=== PATIENT | female | born 1940 | race Caucasian/White ===

== ENCOUNTER → 2024-12-14 13:06 | Outpatient (REF) | payer OTHER, SELFPAY | LOC: RAD 13:06 | PROVIDERS: ATTENDING PHYSICIAN Internal Medicine Hematology & Oncology; FAMILY PHYSICIAN Student in an Organized Health Care Education/Training Program | DX: C50.112 Malignant neoplasm of central portion of left female breast (principal); B37.2 Candidiasis of skin and nail; C79.51 Secondary malignant neoplasm of bone; M79.604 Pain in right leg; M79.605 Pain in left leg | CPT/HCPCS: 71250; 73564; 73590; 74176 ==

== ENCOUNTER 2025-01-09 12:48 | Inpatient (IN) | payer OTHER, SELFPAY ==
[2025-01-09 13:19] VITALS: BP 161/76
[2025-01-09 14:30] LABS: Hematocrit 38.7 % (37.0-47.0); Hemoglobin 12.6 g/dL (12.0-16.0); Mean Corp Hgb Conc. 32.6 g/dL (33.0-37.0); Mean Corpuscular Volume 91.7 fL (81.0-99.0); Nucleated Red Blood Cells % 0 %; Platelet Count 323 10^3/uL (130-400); Red Cell Dist. Width 12.6 % (11.5-14.5)
[2025-01-09 14:46] LABS: INR 0.97; PT 13.2 Sec (11.4-14.6)
--- NOTE | 2025-01-09 14:46 | PTCARENOTE ---
Patient admitted from home for surgery on .She will have a colonoscopy tomorrow and a planned colectomy on .The patient denies any pain.She is alert and oriented but forgetful at times.The patient is in her bed with the call sharma in
reach.
[2025-01-09 14:47] LABS: APTT 30.8 Sec (23.4-35.0)
[2025-01-09 14:49] VITALS: BMI 27.8
[2025-01-09 14:58] LABS: Blood Urea Nitrogen 23 mg/dl (7-17); Calcium 9.7 mg/dl (8.4-10.2); Carbon Dioxide 25 mmol/L (22-30); Chloride 104 mmol/L (98-107); Estimated Creatinine Clearance 49 ml/min; Glucose 138 mg/dl (70-99); Potassium 4.4 mmol/L (3.5-5.1); Sodium 134 mmol/L (135-145); eGFR > 60.00
--- NOTE | 2025-01-09 15:14 | WOUNDNOTE ---
MURIEL RN NOTE: Stoma sited all quadrants as requested. Assessed patient lying, sitting and standing. Multiple abdominal surgical scars and creases avoided. LUQ marked 6.5cm from midline and 8.5cm proximal from umbilical line. LLQ marked 7.5cm from
midline and 0cm distal from umbilical line. RUQ marked 13cm from midline and 9cm proximal from umbilical line. RLQ marked 8cm from midline and 0.5cm distal from umbilical line. Both patient and myself agreed that LUQ is best location, Dr. Kulkarni
made aware. Patient aware that surgeon has final decision during surgery. Answered all questions and will follow post op as needed.
[2025-01-09 15:22] LABS: COVID-19 Antigen Negative (Negative)
[2025-01-09 15:40] VITALS: BP 143/108
[2025-01-09 16:42] LABS: CEA 807 ng/ml
--- NOTE | 2025-01-09 16:48 | PTCARENOTE ---
Patient admitted from pacu post right laparoscopic pyeloplasty.Then patient is drowsy but arousable.She rates her pain at a 6-7 out of 10.All incisions are open to air without drainage.The patient is in her bed with the call sharma in reach.
--- NOTE | 2025-01-09 16:49 | CON.HOSP ---
Consultation
-
Date/Time Consultation Requested: 01/09/25
Date/Time Consultation Performed: 01/09/25
Requesting Provider: Shad
Performing Provider: Maynor
Reason for Consultation: medical co-management
Family Physician
-
Family Physician: INTERVIEWE UNKNOWN - PT NOT
Chief Complaint
-
elective colon surgery
History of Present Illness
84 y/o F, hx of breast cancer, type 2 DM, HTN, HLD admitted to colorectal service for colonoscopy and surgery. Patient reports recent CT in late November for breast cancer surveillance that found an 6-7 cm segment of distal transverse colon
thickening; consistent with neoplasm. She reported no abd pain, weight loss, constipation or bloody bowel movements.
Hospitalist service consulted for medical co-management.
At present patient denies any complaints.
Labs revealed leukocytosis of 14.9; no fevers. ID was consulted.
Medical History
Past Medical History
Past Medical History: Reports Other (breast cancer, type 2 DM, HTN, HLD)
Past Surgical History: Reports None
Social History
Tobacco: Non-smoker
Alcohol: None
Drug: None
Living: With Family
Family History
Family History: Reviewed & Not Pertinent
Allergies / Home Medications
Allergies reflects when Allergies were last updated in [employer].
Home Medications with original date entered in [employer]
Allergy/Medication List:
Allergies
Allergy/AdvReac Type Severity Reaction Status Date / Time
codeine Allergy Unknown Verified 01/10/23 19:07
latex Allergy Unknown Verified 01/10/23 19:07
pentazocine Allergy Pt does Verified 01/10/23 19:07
not know
if this is
an allergy
VITAMIN D MILK Allergy Unknown Uncoded 01/10/23 19:07
Home Medications
amlodipine 5 mg tablet 5 mg PO BID 30 days #60 tabs 06/23/21
aspirin 81 mg chewable tablet 81 mg PO DAILY 30 days #30 tabs 06/23/21
atorvastatin 20 mg tablet 20 mg PO QPM 30 days #30 tabs 06/23/21
blood sugar diagnostic ([employer] Verio test strips) #100 strips 06/23/21
docusate sodium 100 mg capsule 100 mg PO BIDPRN PRN constipation 30 days #60 caps 06/23/21
lancets 30 gauge (Dazo DelEmSense Lancets) #100 ea 06/23/21
letrozole 2.5 mg tablet 2.5 mg PO DAILY 30 days #30 tabs 06/23/21
cyclobenzaprine 5 mg tablet 5 mg PO TID PRN muscle spasm #7 tabs 01/11/23
metformin 500 mg tablet 500 mg PO BID 01/09/25
Review of Systems
-
A 12 point Review of Systems was completed except as noted: Yes
Physical Exam
Vital Signs
Vital Signs
Temp Pulse Resp BP Pulse Ox
98.4 F 68 16 143/108 98
01/09/25 15:40 01/09/25 15:40 01/09/25 15:40 01/09/25 15:40 01/09/25 15:40
Physical Exam
General: No Apparent Distress
HEENT: Normocephalic and Anicteric
Respiratory: Wheezes
Cardiac: S1/S2 and Regular Rhythm
GI: Soft and Non Tender
Neuro: AO x 3
Psych: Calm
Laboratory Results
-
Laboratory Results
01/09/25 14:19
01/09/25 14:19
PT 13.2 Sec (11.4-14.6) 01/09/25 14:19
INR 0.97 01/09/25 14:19
APTT 30.8 Sec (23.4-35.0) 01/09/25 14:19
Data Reviewed
-
Total Time Spent with Patient (in minutes): 65
Lab Data: Labs Reviewed
Impression / Plan
-
Assessment:
Leukocytosis
- unclear etiology
- afebrile
- CXR and COVID negative
- check Bcx x 2
- ID consulted after discussion with colorectal service.
Transverse colon Mass
- CT from 11/2024: 6-7 cm segment of distal transverse colon thickening; consistent with neoplasm
- CRS following; follow their recs
Hx of metastatic breast cancer
- continue Letrozole
type 2 DM
- hold Metformin
- SSI + Accu-cheks
Essential HTN
- continue Amlodipine
HLD - statin
DVT ppx: SC Heparin
Code: Full
Hospitalist service will follow along.
[2025-01-09] MEDS: LIPITOR 20 MG PO (17:45)
[2025-01-09 20:12] VITALS: BP 175/79
[2025-01-09] MEDS: NORVASC 5 MG PO (20:13)
[2025-01-09] MEDS: HEPARIN 5000 UNITS SC (20:14)
[2025-01-09 23:05] VITALS: BP 145/61
[2025-01-10 00:28] LABS: Urine Character Clear (Clear)
[2025-01-10 00:33] LABS: Urine White Cell 16-20 /HPF (0-5)
[2025-01-10 00:34] LABS: Urine Red Blood Cell 0-2 /HPF (0-2)
--- NOTE | 2025-01-10 02:31 | DOWNTIME ---
There was a [employer] Downtime on 01/10/2025 from 0100 to 01/10/2025 at 0215. Downtime documentation of patient's care, including medication administrations, has been reconciled in the electronic record per guidelines. Refer to the
patient's paper chart under the miscellaneous tab to see printed paper medication records and downtime forms.
[2025-01-10 06:20] LABS: Hematocrit 35.2 % (37.0-47.0); Hemoglobin 11.5 g/dL (12.0-16.0); Mean Corp Hgb Conc. 32.7 g/dL (33.0-37.0); Mean Corpuscular Volume 91.4 fL (81.0-99.0); Platelet Count 303 10^3/uL (130-400); Red Cell Dist. Width 12.7 % (11.5-14.5)
[2025-01-10 06:48] LABS: Blood Urea Nitrogen 20 mg/dl (7-17); Calcium 9.6 mg/dl (8.4-10.2); Carbon Dioxide 26 mmol/L (22-30); Chloride 106 mmol/L (98-107); Estimated Creatinine Clearance 49 ml/min; Glucose 161 mg/dl (70-99); Potassium 4.6 mmol/L (3.5-5.1); Sodium 139 mmol/L (135-145); eGFR > 60.00
[2025-01-10 07:06] VITALS: BP 169/69
--- NOTE | 2025-01-10 07:17 | W.PN.ADMIT ---
Progress Note - Admit
Progress Note - Admit
Full admit H&P to be dictated.
History, vitals, labs, prior imaging reviewed. Patient seen and examined.
84-year-old female with prior CT showing evidence for distal transverse colon mass, concerning for malignancy. Given the above, plans were to admit to the hospital for bowel prep, colonoscopy today, followed by surgery tomorrow. Unfortunately,
patient's WBC yesterday was 14.9 with a bit of a left shift for unclear reasons. Patient with no complaints and exam is unremarkable. On communication with the hospitalist service and with ID, decision was made to postpone the above procedures and
workup the abnormal white count. So far, chest x-ray looks reasonable. UA looks possibly positive for UTI. Await IDs input. Anticipating moving her colonoscopy to next Wednesday and the surgery next . Patient prefers to stay here
through then if possible.
[2025-01-10] MEDS: FEMARA 2.5 MG PO (07:44)
[2025-01-10] MEDS: HEPARIN 5000 UNITS SC ×2 (07:44→19:57)
[2025-01-10] MEDS: LOW STRENGTH ASPIRIN 81 MG PO (07:44)
[2025-01-10] MEDS: NORVASC 5 MG PO ×2 (07:46→19:57)
--- NOTE | 2025-01-10 08:26 | CON.ID ---
Consultation
-
Date/Time Consultation Requested: 01/10/202507
Date/Time Consultation Performed: 01/10/2025825
Requesting Provider: Dr. Mcguire
Performing Provider: Dr. Campbell
Reason for Consultation: Leukocytosis
Chief Complaint / Past History
History of Present Illness
Ene Brothers is an 84-year-old female with a significant past medical history of distal transverse colon mass concerning for malignancy being evaluated at the request of Dr. Mcguire in regards to leukocytosis. History is obtained from chart
review, along with patient interview. The patient was admitted to [facility] on 01/09 due to anticipation of bowel prep, colonoscopy and subsequent resection of known mass, but on preop labs was found to have a leukocytosis for unclear
reasons.
At present, patient denies any fevers or chills. She denies any chest pain or shortness of breath. She notes some mild nausea, but no vomiting. She denies any hematuria or dysuria. She notes no urinary urgency. She denies any abdominal pain,
but does feel slight bloating.
Past History
Additional Past Medical History:
DM type II
HTN
HLD
Colon mass
Hx breast cancer
Hx adrenal tumor (1997)
Additional Past Surgical History:
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
(R) TKA
Appendectomy
Cholecystectomy
NICK
Partial colectomy (2* diverticulosis)
Allergy History:
codeine Allergy (Verified 01/10/23 19:07)
Unknown
latex Allergy (Verified 01/10/23 19:07)
Unknown
pentazocine Allergy (Verified 01/10/23 19:07)
Pt does not know if this is an allergy
VITAMIN D MILK Allergy (Uncoded 01/10/23 19:07)
Unknown
Medications Reviewed: Yes
Current Antibiotics:
None
Social History
Tobacco: Non-Smoker
Alcohol: None
Drug: None
Personal: Single
Living: Alone
Employment: Retired
Family History
Family History: Not Pertinent
Review of Systems
Vital Signs
Temp Pulse Resp BP Pulse Ox
98.0 F 64 18 169/69 97
01/10/25 07:06 01/10/25 07:06 01/10/25 07:06 01/10/25 07:06 01/10/25 07:06
Physical Exam
Physical Exam
Constitutional: No Acute Distress, Comfortable and Non-toxic
Head: Normocephalic
Eyes: Pupils Equal, Pupils Round, No Conjunctival Hemorrhage and Sclera Anicteric
Oral: No Thrush and No Ulcers
Cardiovascular: S1/S2; Negative S3/S4
Pulmonary: Clear; Negative Wheezes, Rales or Rhonchi
Gastrointestinal: Soft, Non Tender, Non Distended, Normal Bowel Sounds, No Rebound and No Guarding
Genito-Urinary: Negative Lee, Suprapubic Tenderness or CVA Tenderness
Extremities: Edema; Negative Cyanosis or Erythema
Skin: Warm and Dry; Negative Rash or Jaundice
Neurological: Awake and Alert
Psychological: Calm
Lab / Diagnostic Study Results
01/10/25 05:32
01/10/25 05:32
Abs Immat Gran (auto) 0.1 10^3/uL (0-0.05) H 01/09/25 14:19
Absolute Neuts (auto) 11.3 10^3/uL (1.4-6.5) H 01/09/25 14:19
Absolute Lymphs (auto) 2.2 10^3/uL (1.2-3.4) 01/09/25 14:19
Absolute Monos (auto) 1.3 10^3/uL (0.1-0.6) H 01/09/25 14:19
Absolute Basos (auto) 0.0 10^3/uL (0-0.2) 01/09/25 14:19
Immature Gran % 0.5 % (0-0.5) 01/09/25 14:19
Neutrophils % 75.4 % (42.2-75.2) H 01/09/25 14:19
Lymphocytes % 14.6 % (20.5-51.1) L 01/09/25 14:19
Monocytes % 8.7 % (1.7-9.3) 01/09/25 14:19
Eosinophils % 0.5 % (0-6) 01/09/25 14:19
Basophils % 0.3 % (0-2) 01/09/25 14:19
PT 13.2 Sec (11.4-14.6) 01/09/25 14:19
INR 0.97 01/09/25 14:19
Ur Squamous Epith Cells 6-10 /LPF (Few) 01/10/25 00:15
Microbiology Results
Micro:
01/10/25 06:54 Blood Culture - Pending
Blood/Venous
01/10/25 05:32 Blood Culture - Pending
Blood/Venous
01/10/25 00:15 Urine Culture - Pending
Urine
Imaging:
01/09/2025 CXR (2 view): no focal infiltrates. No significant pleural effusion. Please see full dictation for additional detail. Film personally viewed.
12/14/2024 CT chest/abdomen/pelvis without contrast: no hilar or mediastinal mass or enlarged adenopathy. A few small mediastinal lymph nodes noted. No pleural or pericardial effusion. A few stable tiny pulmonary noted. A calcified granuloma in
the posterior right lower lobe is noted. No evidence of pneumonia. Stable postsurgical changes of the left breast. Slightly irregular nodular soft tissue attenuation in the left axilla appears slightly smaller in size from prior studies. No new
mass or adenopathy. In the abdomen, there is a previous left nephrectomy and adrenalectomy. No hydronephrosis or obstructive uropathy. In the bowel there is an irregular nodular circumferential wall thickening involving an approximately 6 to 7 cm
segment of the distal transverse colon. This is most consistent with neoplasm. There is nodular infiltration of the pericolic fat. Small, likely metastatic mesenteric lymph nodes in the left upper quadrant measuring 7.8 mm and 5.8 mm. Mild
diverticulosis. No evidence of diverticulitis. Throughout the right ilium, there is heterogeneous thickening and sclerosis of the trabecular markings, similar prior examination. Likely reflecting treated metastatic disease. Stable small sclerotic
focus at the left lateral inferior endplate margin of L5. Treated sclerotic metastatic focus along left lateral margin at T8. No vertebral compression deformity. Mild scoliosis. Mild degenerative disc disease and facet arthrosis. Please see full
dictation for additional detail. Film personally viewed.
Assessment / Plan
Leukocytosis; improved
Mild pyuria without dysuria
- Urine culture pending
Colon mass with suspicion for malignancy
DM type II; uncontrolled (HbA1c = 8.6)
HTN
HLD
Hx breast cancer
Hx adrenal tumor (1997)
Recommendations:
At present, would hold on initiation of antibiotics.
Urine culture is currently pending; follow for additional data although without symptomatology, no immediate need for treatment.
Improvement in white count is encouraging.
Follow temperature curve.
Further recommendations as additional data is returned
Care Review
Plan reviewed with: Physician (Hospitalist)
[2025-01-10 08:39] LABS: Glycohemoglobin (HgbA1c) 8.6 % (4.0-5.6)
--- NOTE | 2025-01-10 10:42 | CM ---
Addendum entered by Zaki Quiroz 01/10/25 16:03:
CM met with pt's NILSON Cesar, copy of POA placed on pt's chart. Pt's NILSON Duke stated that pt receiving services from [facility] [facility] associate office [phone] and they are working on an option of an [facility] in [place].
Original Note:
CM following re: discharge planning.
Reviewed pt's chart, met with pt.
Pt is an 84 year old female, admitted with primary dx of distal transverse colon mass, concerning for malignancy. Plan for bowel prep, colonoscopy, followed by surgery when stable.
Pt reports she has been homeless for years, was sleeping in her car for years and a few months ago friend Amaya took the pt to her house and pt has been staying there: 1 SH with 1 step to enter. Pt reports she does not know Amaya's phone number. Pt
stated she is and her . Pt reports she has 12 children and they do not involved in her life. Pt reports she ambulated with a walker outside of the house, cannot use a walker inside the house because her friend
Amaya is a [employer] and she brought all belongings from her parents. Pt stated she was before in [facility].
There is a name of friend Nargis on pt's contact list and there is no phone number.
CM called [facility], spoke to fitness plan coordinator Jocelynn and she have me following friends contact information:
1, Cain Regalado [phone]
2. Florecita [phone]
CM left a message to friend Eliezererikthomas. Florecita's phone number incorrect and has been disconnected.
Pt's friend Cain called back and she stated she just a friend and she thinks that friend Amaya had POA and now another friend Nargis has POA and Nargis holding pt's phone. Per Cain she thinks that pt was able to reconnect with one of her
daughters. per Cain all pt's children live in the surrounding area.
CM called on pt's phone [phone] and she stated that pt's has two friends name Amaya: one had POA but not anymore and another Amaya is pt's [facility] [phone] who rents a room for pt. Pt's friend Nargis [phone] stated that pt's friend
Srikanth Cesar has POA [phone]. Pt's friend stated that all pt's friends are looking for to get the pt to [facility] for a short term rehab and pt will be returning back to her living arrangements at [facility].
Pt's contact list updated.
CM called Srikanth Cesar and he confirmed he has POA, will bring a copy shortly to the hospital. Srikanth confirmed that he is looking for an [facility]ILL[facility] NURSING for patient in [place]. Srikanth agrees that pt will need to go to a SNF and after transferring to an SKILLED NURSING. Per Srikanth,
pt has financial resources to afford [facility]. Srikanth stated that a SNF might also be in [place].
PT and OT will evaluate the pt to determine a level of care at discharge.
PCP: [facility]
Pharmacy: [facility]
D/C plan: preferred SNF, most likely in [place].
CM will follow with discharge plan updates as hospitalization progresses
--- NOTE | 2025-01-10 12:18 | W.PN.HOSP.TC ---
Today's Communication/Plan
-
monitor off Abx pending cultures
add SSI + accu-checks
diabetic diet
continue home meds
d/w Colorectal (primary service) and ID
Assessment / Plan
Assessment / Plan
Assessment:
Leukocytosis
- unclear etiology
- WBC 14.9 to 10.9 today
- afebrile
- CXR and COVID negative
- UA not suggestive of UTI; pt asymptomatic
- follow Bcx x 2
- ID following; observing off antibiotics
Transverse colon Mass
- CT from 11/2024: 6-7 cm segment of distal transverse colon thickening; consistent with neoplasm
- CRS following; correspondence reviewed; planning colonoscopy next Wednesday
Hx of metastatic breast cancer
- continue Letrozole
type 2 DM
- hold Metformin
- A1c 8.6%
- SSI + Accu-cheks
Essential HTN
- continue Amlodipine; monitor BPs
HLD - statin
DVT ppx: SC Heparin
Code: Full
Hospitalist service will follow along.
Anticipated Discharge: > 48 hours
Subjective/Interval History
-
Date of Service: January 10, 2025
resting comfortably, no new complaints
Objective Data
-
Labs:
Laboratory Results
01/10/25
05:32
WBC 10.9 H
Hgb 11.5 L
Hct 35.2 L
Plt Count 303
Sodium 139
Potassium 4.6
Chloride 106
Carbon Dioxide 26
BUN 20 H
Creatinine 0.8
Glucose 161 H
Calcium 9.6
Vital Signs:
Vital Signs
Temp Pulse Resp BP Pulse Ox
98.0 F 64 18 169/69 97
01/10/25 07:06 01/10/25 07:06 01/10/25 07:06 01/10/25 07:06 01/10/25 07:06
I&O
01/09/25 01/10/25 01/11/25
06:59 06:59 06:59
Intake Total 480 / 480
Balance 480 / 480
Physical Exam
-
General: No Apparent Distress
HEENT: Normocephalic and Atraumatic
Respiratory: Negative Wheezes
Cardiac: Regular Rhythm and S1/S2
GI: Soft and Nontender
Musculoskeletal: No Edema
Neuro: AO x 3
Psych: Calm
Data Reviewed
-
Total Time Spent with Patient (in minutes): 41
Labs: Labs Reviewed by me
--- NOTE | 2025-01-10 14:04 | PTCARENOTE ---
Pt valuable receipt [id number] in chart, valuables sent to security
[2025-01-10 15:45] VITALS: BP 162/63
[2025-01-10 16:45] LABS: Glucose - Point of Care 246 mg/dl (70-99)
[2025-01-10] MEDS: LIPITOR 20 MG PO (18:07)
[2025-01-10] MEDS: NOVOLOG FLEXPEN-LOW RESISTANCE 2 UNITS SC (18:08)
[2025-01-10 21:46] LABS: Glucose - Point of Care 230 mg/dl (70-99)
[2025-01-10 22:59] VITALS: BP 163/77
[2025-01-11 06:18] LABS: Hematocrit 37.4 % (37.0-47.0); Hemoglobin 12.8 g/dL (12.0-16.0); Mean Corp Hgb Conc. 34.2 g/dL (33.0-37.0); Mean Corpuscular Volume 89.5 fL (81.0-99.0); Platelet Count 357 10^3/uL (130-400); Red Cell Dist. Width 12.6 % (11.5-14.5)
[2025-01-11 06:43] LABS: Blood Urea Nitrogen 17 mg/dl (7-17); Calcium 9.7 mg/dl (8.4-10.2); Carbon Dioxide 26 mmol/L (22-30); Chloride 106 mmol/L (98-107); Estimated Creatinine Clearance 56 ml/min; Glucose 180 mg/dl (70-99); Potassium 4.4 mmol/L (3.5-5.1); Sodium 136 mmol/L (135-145); eGFR > 60.00
[2025-01-11 07:00] VITALS: BP 154/74
[2025-01-11 08:05] LABS: Glucose - Point of Care 169 mg/dl (70-99)
[2025-01-11] MEDS: NOVOLOG FLEXPEN-LOW RESISTANCE 1 UNITS SC (08:30)
[2025-01-11] MEDS: LOW STRENGTH ASPIRIN 81 MG PO (08:30)
[2025-01-11] MEDS: NORVASC 5 MG PO ×2 (08:30→19:49)
[2025-01-11] MEDS: FEMARA 2.5 MG PO (08:30)
[2025-01-11] MEDS: HEPARIN 5000 UNITS SC ×2 (08:30→19:49)
--- NOTE | 2025-01-11 09:29 | W.PN.CRS1 ---
Today's Communication / Plan
-
OOB with PT/OT
trend WBC
holding off on abx
continue low residue
Assessment/Plan
-
Assessment: 84-year-old female with CT showing evidence for distal transverse colon mass, concerning for malignancy
Plan:
WBC: 12.9 (10.9), Hgb 12.8 (11.5)
CEA: 807
-Continue low residue diet
-Trend labs
-Appreciate ID - holding abx for now
-Likely colonoscopy next week with surgery to follow
-Case management
-OOB as tolerated. PT/OT ordered.
-TEDs/SCDS in place for DVT prophylaxis.
-Continue hospitalization today per Dr. Kulkarni to monitor WBC.
-Appreciate hospitalist
Subjective Data
Subjective Data
Date of Service: January 11, 2025
Patient states she feels 'fine'. She denies abdominal pain. She is urinating and passing stools without difficulty. Denies nausea or vomiting.
Objective Data
-
Vital Signs
Temp Pulse Resp BP Pulse Ox
98.5 F 67 16 154/74 96
01/11/25 07:00 01/11/25 07:00 01/11/25 07:00 01/11/25 07:00 01/11/25 07:00
Intake & Output
01/10/25 01/11/25 01/12/25
06:59 06:59 06:59
Intake Total 480 / 480 240 / 240
Balance 480 / 480 240 / 240
Intake:
Oral fluids 480 / 480 240 / 240
Other:
Number of approximated MODERATE 2 2
amounts of urine
Number of unmeasured liquid
stools
Rectum 1
Lab Results
01/11/25 05:15
01/11/25 05:15
Physical Exam
-
General: No Acute Distress and AOx3
Abdomen: Soft, Non Distended and Non Tender
Skin: Warm and Dry
--- NOTE | 2025-01-11 11:02 | CM ---
PT/OT evaluations pending; disposition plan to be determined
--- NOTE | 2025-01-11 11:12 | W.PN.HOSP.TC ---
Today's Communication/Plan
-
follow ID recs
follow Colorectal (primary recs)
Assessment / Plan
Assessment / Plan
Assessment:
Leukocytosis
- unclear etiology
- WBC 14.9 on admission, currently 12.9
- afebrile
- CXR and COVID negative
- Gram negative growth in urine; pt asymptomatic, defer to ID for evaluation of treatment
- Bcx x 2 x negative
- ID following
Transverse colon Mass
- CT from 11/2024: 6-7 cm segment of distal transverse colon thickening; consistent with neoplasm
- CRS following; correspondence reviewed; planning colonoscopy next Wednesday
- preop evaluation. RCRI score 1.1 (abdominal surgery). patient with >METS. EKG with bundle branch block, no ischemia. Echo normal. Can proceed with intermediate risk. No additional testing.
Hx of metastatic breast cancer
- continue Letrozole
type 2 DM
- hold Metformin
- A1c 8.6%
- SSI (increase to moderate scale) + Accu-cheks
Essential HTN
- continue Amlodipine; monitor BPs
HLD - statin
DVT ppx: SC Heparin
Code: Full
Hospitalist service will follow along.
Anticipated Discharge: > 48 hours
Subjective/Interval History
-
Date of Service: January 11, 2025
no new complaints
WBC 12
no fevers
Objective Data
-
Labs:
Laboratory Results
01/11/25
05:15
WBC 12.9 H
Hgb 12.8
Hct 37.4
Plt Count 357
Sodium 136
Potassium 4.4
Chloride 106
Carbon Dioxide 26
BUN 17
Creatinine 0.7
Glucose 180 H
Calcium 9.7
Vital Signs:
Vital Signs
Temp Pulse Resp BP Pulse Ox
98.5 F 67 16 154/74 96
01/11/25 07:00 01/11/25 07:00 01/11/25 07:00 01/11/25 07:00 01/11/25 07:00
I&O
01/10/25 01/11/25 01/12/25
06:59 06:59 06:59
Intake Total 480 / 480 240 / 240
Balance 480 / 480 240 / 240
Physical Exam
-
General: No Apparent Distress
HEENT: Normocephalic and Atraumatic
Respiratory: Negative Wheezes
Cardiac: Regular Rhythm and S1/S2
GI: Soft
Genito-urinary: No Costovertebral Tender
Neuro: AO x 3
Psych: Calm
Data Reviewed
-
Total Time Spent with Patient (in minutes): 41
Labs: Labs Reviewed by me
[2025-01-11 11:36] LABS: Glucose - Point of Care 269 mg/dl (70-99)
--- NOTE | 2025-01-11 12:08 | W.PN.ID1 ---
Date of Service
Date of Service: January 11, 2025
Today's Communication
Observe off antibiotics.
Assessment / Plan
Leukocytosis; low-grade
Asymptomatic bacteriuria
Colon mass with suspicion for malignancy
- Tentative resection early next week
DM type II; uncontrolled (HbA1c = 8.6)
HTN
HLD
Hx breast cancer
Hx adrenal tumor (1997)
Recommendations:
Urine culture with GNR's, but only 40K.
At present, would hold on initiation of antibiotics.
Follow WBC / temperature curve.
����������������������������������������������������������
Chief Complaint
-: Leukocytosis
Subjective / Review of Systems
Review of Systems: No Fever, No Chills and No Dysuria
Vital Signs / Physical Exam
Vital Signs
Vital Signs
Temp Pulse Resp BP Pulse Ox
98.5 F 67 16 154/74 96
01/11/25 07:00 01/11/25 07:00 01/11/25 07:00 01/11/25 07:00 01/11/25 07:00
Physical Exam
Constitutional: No Acute Distress, Comfortable and Non-toxic
Eyes: Sclera Anicteric
Cardiovascular: S1/S2; Negative S3/S4
Pulmonary: Non Labored
Gastrointestinal: Soft and Non Tender
Neurological: Awake and Alert
Psychological: Calm
Objective Data
Lab Data
Lab Results
01/11/25 05:15
01/11/25 05:15
PT 13.2 Sec (11.4-14.6) 01/09/25 14:19
INR 0.97 01/09/25 14:19
APTT 30.8 Sec (23.4-35.0) 01/09/25 14:19
Estimated Creat Clear 56 ml/min 01/11/25 05:15
Most recent labs reviewed.
Micro Results:
01/10/25 00:15 Urine Culture - Preliminary
Urine Gram negative bacilli (40k cfu/mL)
01/10/25 06:54 Blood Culture - Preliminary
Blood/Venous No Growth in 24 hours- Final report to follow
01/10/25 05:32 Blood Culture - Preliminary
Blood/Venous No Growth in 24 hours- Final report to follow
Imaging:
01/09/2025 CXR (2 view): no focal infiltrates. No significant pleural effusion. Please see full dictation for additional detail. Film personally viewed.
12/14/2024 CT chest/abdomen/pelvis without contrast: no hilar or mediastinal mass or enlarged adenopathy. A few small mediastinal lymph nodes noted. No pleural or pericardial effusion. A few stable tiny pulmonary noted. A calcified granuloma in
the posterior right lower lobe is noted. No evidence of pneumonia. Stable postsurgical changes of the left breast. Slightly irregular nodular soft tissue attenuation in the left axilla appears slightly smaller in size from prior studies. No new
mass or adenopathy. In the abdomen, there is a previous left nephrectomy and adrenalectomy. No hydronephrosis or obstructive uropathy. In the bowel there is an irregular nodular circumferential wall thickening involving an approximately 6 to 7 cm
segment of the distal transverse colon. This is most consistent with neoplasm. There is nodular infiltration of the pericolic fat. Small, likely metastatic mesenteric lymph nodes in the left upper quadrant measuring 7.8 mm and 5.8 mm. Mild
diverticulosis. No evidence of diverticulitis. Throughout the right ilium, there is heterogeneous thickening and sclerosis of the trabecular markings, similar prior examination. Likely reflecting treated metastatic disease. Stable small sclerotic
focus at the left lateral inferior endplate margin of L5. Treated sclerotic metastatic focus along left lateral margin at T8. No vertebral compression deformity. Mild scoliosis. Mild degenerative disc disease and facet arthrosis. Please see full
dictation for additional detail. Film personally viewed.
Care Review
Plan reviewed with: Physician (Hospitalist)
[2025-01-11] MEDS: NOVOLOG FLEXPEN-MODERATE RESISTANCE 5 UNITS SC (12:18)
[2025-01-11 14:14] VITALS: BP 153/95; PULSE 65; O2SAT 98
[2025-01-11 14:24] VITALS: BP 154/74; PULSE 67
--- NOTE | 2025-01-11 14:39 | PTOTSP ---
Pt presents to OT at mod I/I level with basic self care, transfers and functional mobility in room and bathroom with RW. Pt reports no pain and states she is at her functional baseline. No further skilled OT indicated at this time.
[2025-01-11 15:00] VITALS: BP 130/68
[2025-01-11 16:11] LABS: Glucose - Point of Care 218 mg/dl (70-99)
[2025-01-11] MEDS: LIPITOR 20 MG PO (16:32)
[2025-01-11] MEDS: NOVOLOG FLEXPEN-MODERATE RESISTANCE 3 UNITS SC (16:32)
[2025-01-11 21:48] LABS: Glucose - Point of Care 269 mg/dl (70-99)
[2025-01-11 23:00] VITALS: BP 107/64
[2025-01-12 07:05] VITALS: BP 146/72
[2025-01-12 07:24] LABS: Glucose - Point of Care 195 mg/dl (70-99)
[2025-01-12 07:45] LABS: Hematocrit 35.6 % (37.0-47.0); Hemoglobin 11.9 g/dL (12.0-16.0); Mean Corp Hgb Conc. 33.4 g/dL (33.0-37.0); Mean Corpuscular Volume 87.9 fL (81.0-99.0); Nucleated Red Blood Cells % 0 %; Platelet Count 323 10^3/uL (130-400); Red Cell Dist. Width 12.4 % (11.5-14.5)
[2025-01-12 08:13] LABS: Blood Urea Nitrogen 16 mg/dl (7-17); Calcium 9.6 mg/dl (8.4-10.2); Carbon Dioxide 24 mmol/L (22-30); Chloride 107 mmol/L (98-107); Estimated Creatinine Clearance 56 ml/min; Glucose 202 mg/dl (70-99); Potassium 4.2 mmol/L (3.5-5.1); Sodium 138 mmol/L (135-145); eGFR > 60.00
[2025-01-12] MEDS: NORVASC 5 MG PO ×2 (09:25→20:48)
[2025-01-12] MEDS: LOW STRENGTH ASPIRIN 81 MG PO (09:26)
[2025-01-12] MEDS: HEPARIN 5000 UNITS SC ×2 (09:26→20:48)
[2025-01-12] MEDS: FEMARA 2.5 MG PO (09:26)
[2025-01-12] MEDS: NOVOLOG FLEXPEN-MODERATE RESISTANCE 1 UNITS SC (09:27)
--- NOTE | 2025-01-12 09:32 | W.PN.CRS1 ---
Today's Communication / Plan
-
await final cultures
surgery next week
Assessment/Plan
-
Assessment: 84-year-old female with CT showing evidence for distal transverse colon mass, concerning for malignancy
Plan:
WBC: 11.7 (12.9, 10.9), Hgb 11.9 (12.8, 11.5)
CEA: 807
-Continue low residue diet
-Trend labs
-Appreciate ID - holding abx for now
-Likely colonoscopy next week with surgery to follow
-Case management
-OOB as tolerated. PT/OT ordered.
-TEDs/SCDS in place for DVT prophylaxis.
-Continue hospitalization today per Dr. Kulkarni to await final cultures
-Appreciate hospitalist
-D/C vs inpatient stay until surgery
Subjective Data
Subjective Data
Date of Service: January 12, 2025
Patient states she feels well. She has no nausea or vomiting. Denies pain. Tolerating a diet.
Objective Data
-
Vital Signs
Temp Pulse Resp BP Pulse Ox
98.1 F 65 15 146/72 97
01/12/25 07:05 01/12/25 07:05 01/12/25 07:05 01/12/25 07:05 01/12/25 07:05
Intake & Output
01/11/25 01/12/25 01/13/25
06:59 06:59 06:59
Intake Total 240 / 240 240 / 240
Balance 240 / 240 240 / 240
Intake:
Oral fluids 240 / 240 240 / 240
Other:
Number of approximated MODERATE 2
amounts of urine
Lab Results
01/12/25 06:15
01/12/25 06:15
Physical Exam
-
General: No Acute Distress and AOx3
Abdomen: Soft, Non Distended and Non Tender
Skin: Warm and Dry
[2025-01-12 11:43] LABS: Glucose - Point of Care 296 mg/dl (70-99)
--- NOTE | 2025-01-12 13:23 | CM ---
CM following re: discharge planning.
Reviewed pt's chart, met with pt and spoke to NILSON Duke to update on discharge plan progress.
Per Colorectal surgery, D/C vs inpatient stay until surgery
PT and OT evaluations noted - pt has no skilled PT/OT needs.
CM spoke to pt's CARLOSA Srikanth and he stated he will transport pt home if she discharged today.
IMM reviewed, placed on chart, pt has a copy.
D/C plan: home no needs. Friend Srikanth DEVINE will transport home.
[2025-01-12] MEDS: NOVOLOG FLEXPEN-MODERATE RESISTANCE 5 UNITS SC ×2 (14:51→17:15)
--- NOTE | 2025-01-12 15:04 | W.PN.ID1 ---
Date of Service
Date of Service: January 12, 2025
Today's Communication
Continue to observe off antibiotics.
Assessment / Plan
Leukocytosis; low-grade
Asymptomatic bacteriuria
Colon mass with suspicion for malignancy
- Tentative resection early next week
DM type II; uncontrolled (HbA1c = 8.6)
HTN
HLD
Hx breast cancer
Hx adrenal tumor (1997)
Recommendations:
Urine culture with E. coli (40K) and coag negative staph.
- Patient asymptomatic; no need to treat
At present, would hold on initiation of antibiotics.
Follow WBC / temperature curve.
����������������������������������������������������������
Chief Complaint
-: Leukocytosis
Subjective / Review of Systems
Review of Systems: No Fever, No Chills, No Cough, No Abdominal Pain, No Nausea, No Vomiting, No Diarrhea and No Dysuria
Vital Signs / Physical Exam
Vital Signs
Vital Signs
Temp Pulse Resp BP Pulse Ox
98.1 F 65 15 146/72 97
01/12/25 07:05 01/12/25 07:05 01/12/25 07:05 01/12/25 07:05 01/12/25 07:05
Physical Exam
Constitutional: No Acute Distress, Comfortable and Non-toxic
Eyes: Sclera Anicteric
Cardiovascular: S1/S2; Negative S3/S4
Pulmonary: Non Labored
Gastrointestinal: Soft and Non Tender
Neurological: Awake and Alert
Psychological: Calm
Objective Data
Lab Data
Lab Results
01/12/25 06:15
01/12/25 06:15
PT 13.2 Sec (11.4-14.6) 01/09/25 14:19
INR 0.97 01/09/25 14:19
APTT 30.8 Sec (23.4-35.0) 01/09/25 14:19
Estimated Creat Clear 56 ml/min 01/12/25 06:15
Most recent labs reviewed.
Micro Results:
01/10/25 00:15 Urine Culture - Preliminary
Urine Escherichia coli
Coagulase neg. staphylococcus
01/10/25 06:54 Blood Culture - Preliminary
Blood/Venous No Growth in 48 hours- Final report to follow
01/10/25 05:32 Blood Culture - Preliminary
Blood/Venous No Growth in 48 hours- Final report to follow
Imaging:
01/09/2025 CXR (2 view): no focal infiltrates. No significant pleural effusion. Please see full dictation for additional detail. Film personally viewed.
12/14/2024 CT chest/abdomen/pelvis without contrast: no hilar or mediastinal mass or enlarged adenopathy. A few small mediastinal lymph nodes noted. No pleural or pericardial effusion. A few stable tiny pulmonary noted. A calcified granuloma in
the posterior right lower lobe is noted. No evidence of pneumonia. Stable postsurgical changes of the left breast. Slightly irregular nodular soft tissue attenuation in the left axilla appears slightly smaller in size from prior studies. No new
mass or adenopathy. In the abdomen, there is a previous left nephrectomy and adrenalectomy. No hydronephrosis or obstructive uropathy. In the bowel there is an irregular nodular circumferential wall thickening involving an approximately 6 to 7 cm
segment of the distal transverse colon. This is most consistent with neoplasm. There is nodular infiltration of the pericolic fat. Small, likely metastatic mesenteric lymph nodes in the left upper quadrant measuring 7.8 mm and 5.8 mm. Mild
diverticulosis. No evidence of diverticulitis. Throughout the right ilium, there is heterogeneous thickening and sclerosis of the trabecular markings, similar prior examination. Likely reflecting treated metastatic disease. Stable small sclerotic
focus at the left lateral inferior endplate margin of L5. Treated sclerotic metastatic focus along left lateral margin at T8. No vertebral compression deformity. Mild scoliosis. Mild degenerative disc disease and facet arthrosis. Please see full
dictation for additional detail. Film personally viewed.
[2025-01-12 15:05] VITALS: BP 148/72
--- NOTE | 2025-01-12 15:56 | W.PN.HOSP.TC ---
Today's Communication/Plan
-
follow CRS recs
Assessment / Plan
Assessment / Plan
Assessment:
Leukocytosis
- unclear etiology
- WBC 14.9 on admission, currently 11.7
- afebrile
- CXR and COVID negative
- E. Coli in urine; pt asymptomatic, off Antibiotics per ID
- Bcx x 2 x negative
Transverse colon Mass
- CT from 11/2024: 6-7 cm segment of distal transverse colon thickening; consistent with neoplasm
- CRS following; correspondence reviewed; planning colonoscopy next Wednesday
- preop evaluation. RCRI score 1.1 (abdominal surgery). patient with >METS. EKG with bundle branch block, no ischemia. Echo normal. Can proceed with intermediate risk. No additional testing.
Hx of metastatic breast cancer
- continue Letrozole
type 2 DM
- hold Metformin
- A1c 8.6%
- SSI (increase to moderate scale) + Accu-cheks
Essential HTN
- continue Amlodipine; monitor BPs
HLD - statin
DVT ppx: SC Heparin
Code: Full
Hospitalist service will follow along.
Anticipated Discharge: 24 - 48 hours
Subjective/Interval History
-
Date of Service: January 12, 2025
no new complaints
Objective Data
-
Labs:
Laboratory Results
01/12/25
06:15
WBC 11.7 H
Hgb 11.9 L
Hct 35.6 L
Plt Count 323
Sodium 138
Potassium 4.2
Chloride 107
Carbon Dioxide 24
BUN 16
Creatinine 0.7
Glucose 202 H
Calcium 9.6
Vital Signs:
Vital Signs
Temp Pulse Resp BP Pulse Ox
98.1 F 65 15 146/72 97
01/12/25 07:05 01/12/25 07:05 01/12/25 07:05 01/12/25 07:05 01/12/25 07:05
I&O
01/11/25 01/12/25 01/13/25
06:59 06:59 06:59
Intake Total 240 / 240 240 / 240 717 / 717
Balance 240 / 240 240 / 240 717 / 717
Physical Exam
-
General: No Apparent Distress
HEENT: Normocephalic and Atraumatic
Respiratory: Negative Wheezes
Cardiac: Regular Rhythm and S1/S2
GI: Soft and Nontender
Musculoskeletal: No Edema
Neuro: AO x 3
Psych: Calm
Data Reviewed
-
Total Time Spent with Patient (in minutes): 41
Labs: Labs Reviewed by me
[2025-01-12 16:39] LABS: Glucose - Point of Care 274 mg/dl (70-99)
[2025-01-12] MEDS: LIPITOR 20 MG PO (17:14)
[2025-01-12 21:37] LABS: Glucose - Point of Care 213 mg/dl (70-99)
[2025-01-12 23:00] VITALS: BP 128/46
[2025-01-13 06:10] LABS: Hematocrit 37.1 % (37.0-47.0); Hemoglobin 12.0 g/dL (12.0-16.0); Mean Corp Hgb Conc. 32.3 g/dL (33.0-37.0); Mean Corpuscular Volume 90.0 fL (81.0-99.0); Nucleated Red Blood Cells % 0 %; Platelet Count 327 10^3/uL (130-400); Red Cell Dist. Width 12.5 % (11.5-14.5)
[2025-01-13 06:33] LABS: Blood Urea Nitrogen 20 mg/dl (7-17); Calcium 10.0 mg/dl (8.4-10.2); Carbon Dioxide 25 mmol/L (22-30); Chloride 108 mmol/L (98-107); Estimated Creatinine Clearance 56 ml/min; Glucose 195 mg/dl (70-99); Potassium 4.6 mmol/L (3.5-5.1); Sodium 134 mmol/L (135-145); eGFR > 60.00
[2025-01-13 07:05] VITALS: BP 162/69
[2025-01-13 08:45] LABS: Glucose - Point of Care 227 mg/dl (70-99)
[2025-01-13] MEDS: NOVOLOG FLEXPEN-MODERATE RESISTANCE 3 UNITS SC ×3 (08:54→17:09)
[2025-01-13] MEDS: NORVASC 5 MG PO (08:55)
[2025-01-13] MEDS: FEMARA 2.5 MG PO (08:55)
[2025-01-13] MEDS: HEPARIN 5000 UNITS SC (08:55)
[2025-01-13] MEDS: LOW STRENGTH ASPIRIN 81 MG PO (08:55)
--- NOTE | 2025-01-13 09:33 | W.PN.CRS1 ---
Addendum entered and electronically signed by Vincent Taylor MD 01/13/25 09:50:
I saw and examined the patient independently.
The Homeworker's note was reviewed and I agree with the note, assessment and plan except where noted below.
Comment: As below, DC today.
Original Note:
Today's Communication / Plan
-
d/c
Assessment/Plan
-
Assessment: 84-year-old female with CT showing evidence for distal transverse colon mass, concerning for malignancy
Plan:
WBC: 10.9 (11.7, 12.9, 10.9), Hgb 12.0 (11.9, 12.8, 11.5)
CEA: 807
-Continue low residue diet
-Trend labs
-Appreciate ID - holding abx for now
-Likely colonoscopy next week with surgery to follow
-Case management
-OOB as tolerated. PT/OT ordered.
-TEDs/SCDS in place for DVT prophylaxis.
-Appreciate hospitalist
-Will discharge today, she will come back on Wednesday, 01/16 for prep and colonoscopy with OR to follow
Subjective Data
Subjective Data
Date of Service: January 13, 2025
Patient states she has some mild LLQ soreness, otherwise she has no complaints. Denies nausea or vomiting. She is passing stool and flatus.
Objective Data
-
Vital Signs
Temp Pulse Resp BP Pulse Ox
97.7 F 66 16 162/69 97
01/13/25 07:05 01/13/25 08:55 01/13/25 07:05 01/13/25 08:55 01/13/25 07:05
Intake & Output
01/12/25 01/13/25 01/14/25
06:59 06:59 06:59
Intake Total 240 / 240 1197 / 1197
Balance 240 / 240 1197 / 1197
Intake:
Oral fluids 240 / 240 7 / 119
Other:
Number of approximated MODERATE 5
amounts of urine
Lab Results
01/13/25 05:32
01/13/25 05:32
Physical Exam
-
General: No Acute Distress and AOx3
Abdomen: Soft, Non Distended and Non Tender
Skin: Warm and Dry
--- NOTE | 2025-01-13 10:54 | CM ---
CM following re: discharge planning.
Reviewed pt's chart, met with pt.
Discharge order noted. Pt is aware, expressed her agreement with discharge and she stated her friend NILSON Duke will transport home. IMM reviewed yesterday.
PT and OT evaluations noted - pt has no skilled PT/OT needs.
D/C plan: home no needs. Friend Srikanth DEVINE will transport home.
--- NOTE | 2025-01-13 11:04 | W.PN.HOSP.TC ---
Today's Communication/Plan
-
sign off
Assessment / Plan
Assessment / Plan
Assessment:
Leukocytosis
- unclear etiology
- WBC 14.9 on admission, currently 10.9
- afebrile
- CXR and COVID negative
- E. Coli in urine; pt asymptomatic, off Antibiotics per ID
- Bcx x 2 x negative
Transverse colon Mass
- CT from 11/2024: 6-7 cm segment of distal transverse colon thickening; consistent with neoplasm
- CRS following; correspondence reviewed; planning colonoscopy next Wednesday
- preop evaluation. RCRI score 1.1 (abdominal surgery). patient with >METS. EKG with bundle branch block, no ischemia. Echo normal. Can proceed with intermediate risk. No additional testing.
Hx of metastatic breast cancer
- continue Letrozole
type 2 DM
- resume Metformin at discharge
- A1c 8.6%
Essential HTN
- continue Amlodipine; monitor BPs
HLD - statin
DVT ppx: SC Heparin
Code: Full
Hospitalist service will sign off with planned dc today. d/w primary Colorectal surgery service.
Anticipated Discharge: Today
Subjective/Interval History
-
Date of Service: January 13, 2025
no new complaints
she reports that she will be discharged per surgical team
Objective Data
-
Labs:
Laboratory Results
01/13/25
05:32
WBC 10.9 H
Hgb 12.0
Hct 37.1
Plt Count 327
Sodium 134 L
Potassium 4.6
Chloride 108 H
Carbon Dioxide 25
BUN 20 H
Creatinine 0.7
Glucose 195 H
Calcium 10.0
Vital Signs:
Vital Signs
Temp Pulse Resp BP Pulse Ox
97.7 F 66 16 162/69 97
01/13/25 07:05 01/13/25 08:55 01/13/25 07:05 01/13/25 08:55 01/13/25 07:05
I&O
01/12/25 01/13/25 01/14/25
06:59 06:59 06:59
Intake Total 240 / 240 1197 / 1197
Balance 240 / 240 1197 / 1197
Physical Exam
-
General: No Apparent Distress
HEENT: Normocephalic and Atraumatic
Respiratory: Negative Wheezes
Cardiac: Regular Rhythm and S1/S2
GI: Soft and Nontender
Neuro: AO x 3
Data Reviewed
-
Total Time Spent with Patient (in minutes): 41
Labs: Labs Reviewed by me
[2025-01-13 11:45] LABS: Glucose - Point of Care 236 mg/dl (70-99)
[2025-01-13 15:00] VITALS: BP 137/94
[2025-01-13 17:05] LABS: Glucose - Point of Care 235 mg/dl (70-99)
[2025-01-13] MEDS: LIPITOR 20 MG PO (17:06)
== END 2025-01-13 18:48 | disposition home or self-care (01) | DRG 376 ==
LOC: 2 SOUTH 12:48
PROVIDERS: Physician Assistant; ADMITTING PHYSICIAN Surgery; CONSULT PHYSICIAN Internal Medicine; CONSULT PHYSICIAN Internal Medicine Infectious Disease
DX: C18.9 Malignant neoplasm of colon, unspecified (principal); C50.919 Malignant neoplasm of unspecified site of unspecified female breast; K63.89 Other specified diseases of intestine; D72.829 Elevated white blood cell count, unspecified; E11.9 Type 2 diabetes mellitus without complications; B96.20 Unspecified Escherichia coli [E. coli] as the cause of diseases classified elsewhere; I10 Essential (primary) hypertension; E78.5 Hyperlipidemia, unspecified; R82.71 Bacteriuria; Z11.52 Encounter for screening for COVID-19; Z79.811 Long term (current) use of aromatase inhibitors; Z79.899 Other long term (current) drug therapy
CPT/HCPCS: 71046; 80048; 81003; 81015; 82378; 82962; 83036; 85025; 85027; 85610; 85730; 86850; 86900; 86901; 87040; 87077; 87086; 87147; 87186; 87811; 93005; 93306; 97162; 97166

== ENCOUNTER 2025-01-17 16:41 | Inpatient (IN) | payer OTHER, SELFPAY ==
[2025-01-17 17:00] VITALS: BP 152/69; BMI 27.8
[2025-01-17 17:07] LABS: Glucose - Point of Care 146 mg/dl (70-99)
--- NOTE | 2025-01-17 17:35 | CON.HOSP ---
Consultation
-
Date/Time Consultation Requested: 01/17/25 1732
Requesting Provider: Merlyn Hines
Performing Provider: Stevie Macario MD
Reason for Consultation: DM2 with hyperglycemia, HTN
Family Physician
-
Family Physician: NOT KNOW UNKNOWN - PT DOES
Chief Complaint
-
c/s for DM2 with hyperglycemia, Essential HTN
History of Present Illness
84 y/o F with PMHx:
Transverse colon mass
Metastatic breast cancer
DM2
Essential HTN
HLD
who is admitted under colorectal surgery for colonoscopy tomorrow followed by surgical resection of transverse colon mass the following day. Recently she had a leukocytosis that was worked up and workup was negative for infection. Her leukocytosis
was thought to be due to malignancy. The hospitalist service has been consulted for management of her type 2 diabetes mellitus and essential hypertension. Currently the patient has no new complaints. Denies chest pain, shortness of breath,
nausea, vomiting, diarrhea, abdominal pain (without palpation), rash, dysuria, headache, neck stiffness.
Medical History
Past Medical History
Past Medical History: Reports Other (as per HPI)
Past Surgical History: Reports Other (N/A)
Social History
Tobacco: Non-smoker
Alcohol: None
Drug: None
Family History
Family History: Reviewed & Not Pertinent
Allergies / Home Medications
Allergies reflects when Allergies were last updated in [facility].
Home Medications with original date entered in [facility]
Allergy/Medication List:
Allergies
Allergy/AdvReac Type Severity Reaction Status Date / Time
codeine Allergy Unknown Verified 01/10/23 19:07
latex Allergy Unknown Verified 01/10/23 19:07
pentazocine Allergy Pt does Verified 01/10/23 19:07
not know
if this is
an allergy
Home Medications
amlodipine 5 mg tablet 5 mg PO BID 30 days #60 tabs 06/23/21
aspirin 81 mg chewable tablet 81 mg PO DAILY 30 days #30 tabs 06/23/21
atorvastatin 20 mg tablet 20 mg PO QPM 30 days #30 tabs 06/23/21
blood sugar diagnostic ([employer]oneeruch Verio test strips) #100 strips 06/23/21
docusate sodium 100 mg capsule 100 mg PO BIDPRN PRN constipation 30 days #60 caps 06/23/21
lancets 30 gauge (Sinovac BiotechTouch Delica Lancets) #100 ea 06/23/21
letrozole 2.5 mg tablet 2.5 mg PO DAILY 30 days #30 tabs 06/23/21
metformin 500 mg tablet 500 mg PO BID 01/09/25
Review of Systems
-
History Source: Patient
A 12 point Review of Systems was completed except as noted: Yes
Physical Exam
Vital Signs
Vital Signs
Temp Pulse Resp BP Pulse Ox
98.3 F 68 18 152/69 97
01/17/25 17:00 01/17/25 17:00 01/17/25 17:00 01/17/25 17:00 01/17/25 17:07
Physical Exam
General: Other (.)
Impression / Plan
-
Gen: NAD, AAOx3.
Eyes: EOMI, PERRLA, no scleral icterus.
Neck: supple.
CV: RRR, +S1/S2, no m/r/g.
Resp: CTAB, no rales, wheezes, or rhonchi.
Abd: +BS, soft, very mild epigastric tenderness to palpation,, ND
Skin: No rashes.
Neuro: CN 2-12 intact, non-focal.
Psych: Normal mood and affect.
CXR 01/09: No acute cardiopulmonary process.
Transverse colon mass:
-for colonoscopy tomorrow followed by surgical resection the following day
-CRS is primary and managing
DM2:
-a1c 8.6%
-only on Metformin at home. Recommend holding metformin while hospitalized.
-based on review of blood glucoses from 01/10-01/13 OK for SSI only from now until follow up on rounds tomorrow. At that time will review total daily insulin requirements and make appropriate insulin adjustments.
Essential HTN:
-cont Norvasc
h/o metastatic breast cancer:
-cont Letrozole
HLD:
-cont statin
Thank you for the courtesy of this consultation. Please feel free to contact myself or my team with questions at any time. We will follow daily.
[2025-01-17] MEDS: NORMOSOL-R/PLASMALYTE-A 1000 IV (17:48)
[2025-01-17 17:49] LABS: Hematocrit 36.2 % (37.0-47.0); Hemoglobin 12.0 g/dL (12.0-16.0); Mean Corp Hgb Conc. 33.1 g/dL (33.0-37.0); Mean Corpuscular Volume 87.7 fL (81.0-99.0); Nucleated Red Blood Cells % 0 %; Platelet Count 322 10^3/uL (130-400); Red Cell Dist. Width 12.8 % (11.5-14.5)
[2025-01-17 17:56] LABS: INR 0.90; PT 12.7 Sec (11.4-14.6)
[2025-01-17 17:57] LABS: APTT 28.7 Sec (23.4-35.0)
[2025-01-17 19:11] LABS: Blood Urea Nitrogen 15 mg/dl (7-17); Calcium 9.8 mg/dl (8.4-10.2); Carbon Dioxide 24 mmol/L (22-30); Chloride 104 mmol/L (98-107); Estimated Creatinine Clearance 49 ml/min; Glucose 158 mg/dl (70-99); Potassium 4.7 mmol/L (3.5-5.1); Sodium 136 mmol/L (135-145); eGFR > 60.00
[2025-01-17] MEDS: NORVASC 2.5 MG PO (19:58)
[2025-01-17] MEDS: NULYTELY SOLUTION 4 LITERS PO (19:58)
[2025-01-17 20:46] LABS: Glucose - Point of Care 127 mg/dl (70-99)
[2025-01-17 23:29] VITALS: BP 146/57
[2025-01-18] MEDS: NORMOSOL-R/PLASMALYTE-A 1000 IV ×2 (04:43→22:43)
[2025-01-18 06:28] LABS: Glucose - Point of Care 154 mg/dl (70-99)
[2025-01-18] MEDS: NOVOLOG FLEXPEN-LOW RESISTANCE 1 UNITS SC (06:31)
[2025-01-18 07:43] VITALS: BP 161/73
[2025-01-18 08:15] LABS: Hematocrit 34.5 % (37.0-47.0); Hemoglobin 11.3 g/dL (12.0-16.0); Mean Corp Hgb Conc. 32.8 g/dL (33.0-37.0); Mean Corpuscular Volume 91.8 fL (81.0-99.0); Nucleated Red Blood Cells % 0 %; Platelet Count 311 10^3/uL (130-400); Red Cell Dist. Width 12.8 % (11.5-14.5)
[2025-01-18] MEDS: FEMARA 2.5 MG PO (08:29)
[2025-01-18] MEDS: NORVASC 2.5 MG PO ×2 (08:29→19:34)
[2025-01-18 08:44] LABS: Blood Urea Nitrogen 11 mg/dl (7-17); Calcium 9.3 mg/dl (8.4-10.2); Carbon Dioxide 27 mmol/L (22-30); Chloride 104 mmol/L (98-107); Estimated Creatinine Clearance 56 ml/min; Glucose 138 mg/dl (70-99); Potassium 4.4 mmol/L (3.5-5.1); Sodium 135 mmol/L (135-145); eGFR > 60.00
--- NOTE | 2025-01-18 11:33 | W.PN.HOSP.TC ---
Today's Communication/Plan
-
see plan
Assessment / Plan
Assessment / Plan
Gen: NAD, AAOx3.
Eyes: EOMI, PERRLA, no scleral icterus.
Neck: supple.
CV: remains RRR, +S1/S2, no m/r/g.
Resp: remains CTAB, no rales, wheezes, or rhonchi.
Abd: remains +BS, soft, very mild epigastric tenderness to palpation,, ND
Skin: No rashes.
Neuro: CN 2-12 intact, non-focal.
Psych: Normal mood and affect.
CXR 01/09: No acute cardiopulmonary process.
Transverse colon mass:
-for colonoscopy today followed by surgical resection tomorrow
-CRS is primary and managing
DM2:
-a1c 8.6%
-only on Metformin at home. Recommend holding metformin while hospitalized.
-cont SSI only at this time
Essential HTN:
-cont Norvasc
h/o metastatic breast cancer:
-cont Letrozole
HLD:
-cont statin
Thank you for the courtesy of this consultation. Please feel free to contact myself or my team with questions at any time. We will follow daily.
Anticipated Discharge: > 48 hours
Subjective/Interval History
-
Date of Service: January 18, 2025
No new complaints.
Objective Data
-
Labs:
Laboratory Results
01/18/25
06:53
WBC 10.9 H
Hgb 11.3 L
Hct 34.5 L
Plt Count 311
Sodium 135
Potassium 4.4
Chloride 104
Carbon Dioxide 27
BUN 11
Creatinine 0.7
Glucose 138 H
Calcium 9.3
Vital Signs:
Vital Signs
Temp Pulse Resp BP Pulse Ox
98.2 F 66 17 161/73 97
01/18/25 07:43 01/18/25 07:43 01/18/25 07:43 01/18/25 07:43 01/18/25 07:43
I&O
01/17/25 01/18/25 01/19/25
06:59 06:59 06:59
Intake Total 4900 / 4900
Balance 4900 / 4900
--- NOTE | 2025-01-18 13:10 | HPS.HSE ---
Family Physician
-
Family Physician: NOT KNOW UNKNOWN - PT DOES
Chief Complaint
-
Distal transverse colon mass.
History of Present Illness
The patient is an 84-year-old female
who Dr. Kulkarni saw in the office initially after she was referred by Dr. Yanira Calderón for a CT scan showing a distal transverse colon mass. The patient has a history of breast cancer for which she was
seeing Dr. Calderón. Her CT was a surveillance CT of the abdomen and pelvis without contrast on 12/14/2024. The finding was segmental wall thickening of the distal transverse colon, which was felt to be most consistent with neoplasm. There was also
potential metastatic mesenteric lymphadenopathy nearby. No obvious liver nodules noted. Of note, the patient had a prior history of left nephrectomy as well as adrenal gland removal on the left side. When Dr. Kulkarni reviewed the imaging, the left
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 It also appeared that she had a history of sigmoidectomy for diverticulitis at [facility] versus [place] years ago where 14 inches of her colon were removed. She also had a prior TAHBSO and cholecystectomy and appendectomy.
In regard to prior colonoscopies, she may have had one many years ago, but she was not clear. She has been dropping weight the last few months and has rare abdominal discomfort and denied blood in
her stools. 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 Given her elderly state and lack of recent colonoscopy, being directly admitted to the hospital for bowel prep on day one followed by colonoscopy on day two and surgery/partial
colectomy day three. She was admitted for this last week, however, she had a WBC on her admit labs. A workup was done, and no source was discovered. It was determined it was likely due to the state of her colon mass. She was discharged last weekend
and was readmitted for prep, colonoscopy, and surgery.
Medical History
Past Medical History
Past Medical History: Reports Other (1. Hypertension. 2. Diabetes. 3. Polio. 4. Metastatic breast cancer.)
Past Surgical History: Reports Other (As described above plus right knee surgery.)
Additional Past Surgical History:
As described above plus right knee surgery.
Social History
Tobacco: Non-smoker
Alcohol: None
Family History
Family History: Not pertinent
Allergies / Home Medications
Allergies reflects when Allergies were last updated in [facility].
Home Medications with original date entered in [facility]
Allergy/Medication List:
ALLERGIES: Codeine.
MEDICATIONS:
1. Amlodipine 2.5 mg p.o. daily.
2. Aspirin 81 mg p.o. daily.
3. Atorvastatin 20 mg p.o. daily.
4. Lantus 100 units per mL solution 15 units subcutaneous daily.
5. Letrozole 2.5 mg p.o. daily.
6. Metformin 100 mg p.o. b.i.d.
Review of Systems
-
History Source: Patient
A 12 point ROS was completed and negative except as noted: Yes
Physical Exam
Vital Signs
Vital Signs
Temp Pulse Resp BP Pulse Ox
98.2 F 66 17 161/73 97
01/18/25 07:43 01/18/25 07:43 01/18/25 07:43 01/18/25 07:43 01/18/25 07:43
Physical Exam
General: Well Developed, Well Nourished and No Apparent Distress
GI: Soft, Non Tender and Non Distended
Musculoskeletal: No Clubbing
Skin: Warm and Dry
Neuro: AO x 3
Psych: Calm
Laboratory Results
-
01/18/25 06:53
01/18/25 06:53
Laboratory Results
PT 12.7 Sec (11.4-14.6) 01/17/25 17:36
INR 0.90 01/17/25 17:36
APTT 28.7 Sec (23.4-35.0) 01/17/25 17:36
Data Reviewed
-
Lab Data: Labs Reviewed by me and Discussed with Physician
Old Records: Reviewed
Impression/Plan
-
IMPRESSION/PLAN:
84-year-old female with CT showing evidence for
distal transverse colon mass, concerning for malignancy. CEA is
likewise elevated. Given the above, plans were to admit to the
hospital for bowel prep followed by colonoscopy, followed by
surgery. Preparations are in place.
[2025-01-18 13:45] LABS: Glucose - Point of Care 131 mg/dl (70-99)
[2025-01-18] MEDS: NOVOLOG FLEXPEN-LOW RESISTANCE SC ×2 (14:02→18:07)
[2025-01-18] MEDS: FLAGYL 1000 MG PO ×3 (14:48→23:56)
[2025-01-18] MEDS: NEOMYCIN 1000 MG PO ×3 (14:50→23:56)
[2025-01-18 15:27] VITALS: BP 175/67
--- NOTE | 2025-01-18 15:31 | CM ---
CM reviewed chart, patient seen bedside.
Patient reports she was recently at the hospital, has already answered these questions and does not wish to complete initial assessment at this time.
Patient reports she does have a POA, Srikanth Knott.
Per previous admission- patient residing with friend/landlord in a single story home, one step to enter.
Patient has a RW, denies VN, has been to [facility] in past.
PCP Lashawn Finnegan, Pharmacy [facility].
Patient for colonoscopy today, followed by surgical resection tomorrow.
CM will continue to follow for all d/c planning needs.
Plan; return home when stable, watch for VN needs
[2025-01-18] MEDS: LIPITOR 20 MG PO (17:58)
[2025-01-18 18:02] LABS: Glucose - Point of Care 119 mg/dl (70-99)
--- NOTE | 2025-01-18 20:40 | W.PN.UPDATE ---
Update Note
Progress Note Update
Colonoscopy completed. Mass in transverse colon confirmed. Malignant appearing. Unable to traverse. Tattooed distally. Also diverticulosis and fair prep. Clears and mag citrate tonight and npo after MN. OR tomorrow am. Srikanth Dates (NOK)
updated.
[2025-01-18 21:18] VITALS: BP 175/66
[2025-01-18 21:25] LABS: Glucose - Point of Care 98 mg/dl (70-99)
[2025-01-18] MEDS: CITROMA 300 ML PO (22:15)
[2025-01-18 23:15] VITALS: BP 165/64
[2025-01-19] VITALS (13 sets, daily range): BP systolic 90–138; BP diastolic 50–72; PULSE 71–77; O2SAT 94
[2025-01-19 00:06] LABS: Glucose - Point of Care 136 mg/dl (70-99)
[2025-01-19] MEDS: NOVOLOG FLEXPEN-LOW RESISTANCE SC ×2 (00:10→13:09)
[2025-01-19 06:00] LABS: Glucose - Point of Care 161 mg/dl (70-99)
[2025-01-19] MEDS: NOVOLOG FLEXPEN-LOW RESISTANCE 1 UNITS SC (06:31)
[2025-01-19 07:50] LABS: Blood Urea Nitrogen 8 mg/dl (7-17); Calcium 9.4 mg/dl (8.4-10.2); Carbon Dioxide 25 mmol/L (22-30); Chloride 103 mmol/L (98-107); Estimated Creatinine Clearance 56 ml/min; Glucose 154 mg/dl (70-99); Potassium 4.7 mmol/L (3.5-5.1); Sodium 134 mmol/L (135-145); eGFR > 60.00
[2025-01-19] MEDS: NEURONTIN 600 MG PO (07:54)
[2025-01-19] MEDS: FEMARA 2.5 MG PO (07:55)
[2025-01-19] MEDS: HEPARIN 5000 UNITS SC (07:55)
[2025-01-19] MEDS: NORVASC 2.5 MG PO ×2 (07:55→20:16)
[2025-01-19 08:12] LABS: Hematocrit 35.8 % (37.0-47.0); Hemoglobin 11.9 g/dL (12.0-16.0); Mean Corp Hgb Conc. 33.2 g/dL (33.0-37.0); Mean Corpuscular Volume 86.7 fL (81.0-99.0); Nucleated Red Blood Cells % 0 %; Platelet Count 309 10^3/uL (130-400); Red Cell Dist. Width 12.6 % (11.5-14.5)
--- NOTE | 2025-01-19 08:55 | CM ---
CM reviewed chart, care ongoing.
Patient for OR today.
CM will continue to follow for all d/c planning needs.
Plan; OR today, return home when stable
[2025-01-19 09:31] LABS: Glucose - Point of Care 173 mg/dl (70-99)
--- NOTE | 2025-01-19 10:54 | W.PN.HOSP.TC ---
Today's Communication/Plan
-
see plan
Assessment / Plan
Assessment / Plan
This is a nonbillable encounter as I was unable to see the patient as she was already taken to surgery.
CXR 01/09: No acute cardiopulmonary process.
Colonoscopy 01/18:
- Preparation of the colon was fair.
- Diverticulosis in the descending colon and in the sigmoid colon.
- Stool in the entire examined colon.
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
colon. Tattooed.
- No specimens collected.
Transverse colon mass:
-for surgical resection today
-CRS is primary and managing
DM2:
-a1c 8.6%
-only on Metformin at home. Recommend holding metformin while hospitalized.
-cont SSI only at this time
Essential HTN:
-cont Norvasc
h/o metastatic breast cancer:
-cont Letrozole
HLD:
-cont statin
Thank you for the courtesy of this consultation. Please feel free to contact myself or my team with questions at any time. We will follow daily.
Anticipated Discharge: > 48 hours
Subjective/Interval History
-
Date of Service: January 19, 2025
Patient has already been taken to the OR for transverse colectomy.
Objective Data
-
Labs:
Laboratory Results
01/19/25
06:53
WBC 13.7 H
Hgb 11.9 L
Hct 35.8 L
Plt Count 309
Sodium 134 L
Potassium 4.7
Chloride 103
Carbon Dioxide 25
BUN 8
Creatinine 0.7
Glucose 154 H
Calcium 9.4
Vital Signs:
Vital Signs
Temp Pulse Resp BP Pulse Ox
99.8 F 90 18 125/69 98
01/19/25 07:06 01/19/25 07:06 01/19/25 07:06 01/19/25 07:06 01/19/25 07:06
I&O
01/18/25 01/19/25 01/20/25
06:59 06:59 06:59
Intake Total 4900 / 4900
Balance 4900 / 4900
[2025-01-19] MEDS: NORMOSOL-R/PLASMALYTE-A IV (11:21)
--- NOTE | 2025-01-19 12:04 | W.OR.COLCA ---
Colon Cancer Post Op Note
Immediate Post Op
Primary Surgeon: Tomás Kulkarni MD
Assisting Surgeon: PRADEEP Orourke; VALENTIN Garcia
Pre-op Diagnosis: transverse colon mass (probable colon cancer)
Post-op Diagnosis: same
Procedure Performed: 1) open partial colectomy (portion of transverse colon) 2) takedown of splenic fluxure 3) lysis of adhesions
Anesthesia Type: general plus local
Specimen / Cultures: 1) portion of transverse colon to include mass (tattoo is distal)--proximal margin 7 cm and distal 4 cm 2) poximal anastomotic donut 3) distal anastomotic donut (tattooed)
Estimated Blood Loss: 50 cc
Complications: no immediate
Operative Findings: 1) left chest wall nodule concerning for breast cancer (discussed with Dr. Dotson) 2) transverse colon mass with distal tattoo 2) adhesions 3) no obvious intraperitoneal or hepatic metastases
Colon Resection
Colon Resection
Operation performed with curative intent: Yes
Tumor Location: Transverse Colon
Transverse Colectomy: Middle Colic (I did not do a typical proximal/distal margin nor typical mesenteric/vascular excision given her age and known prior sigmoidectomy (did not wish to disrupt blood supply))
[2025-01-19 12:29] LABS: Glucose - Point of Care 201 mg/dl (70-99)
[2025-01-19 12:51] LABS: Blood Urea Nitrogen 9 mg/dl (7-17); Calcium 8.3 mg/dl (8.4-10.2); Carbon Dioxide 20 mmol/L (22-30); Chloride 101 mmol/L (98-107); Estimated Creatinine Clearance 56 ml/min; Glucose 210 mg/dl (70-99); Potassium 4.6 mmol/L (3.5-5.1); Sodium 131 mmol/L (135-145); eGFR > 60.00
[2025-01-19 12:52] LABS: Hematocrit 37.6 % (37.0-47.0); Hemoglobin 12.6 g/dL (12.0-16.0); Mean Corp Hgb Conc. 33.5 g/dL (33.0-37.0); Mean Corpuscular Volume 86.2 fL (81.0-99.0); Nucleated Red Blood Cells % 0 %; Platelet Count 323 10^3/uL (130-400); Red Cell Dist. Width 12.3 % (11.5-14.5)
[2025-01-19] MEDS: NOVOLOG vial 1 UNITS SC (12:54)
[2025-01-19] MEDS: TORADOL 15 MG IV ×2 (13:16→17:17)
--- NOTE | 2025-01-19 16:48 | W.PN.UPDATE ---
Update Note
Progress Note Update
Dr Kulkarni called today and sent photo from OR regarding lesion on patient's treated breast. She has known stage 4 breast carcinoma being treated by Dr. Calderón. I spoke with Dr. Calderón who provided a photo [id number] showing very slow progression.
Biopsy would not change any treatment recommendations, so not needed. Patient's breast cancer was not lobular so doubt colonic involvent.
[2025-01-19 17:14] LABS: Glucose - Point of Care 249 mg/dl (70-99)
[2025-01-19] MEDS: NOVOLOG FLEXPEN-LOW RESISTANCE 2 UNITS SC (17:17)
[2025-01-19] MEDS: LIPITOR 20 MG PO (17:17)
[2025-01-20] MEDS: TORADOL 15 MG IV ×4 (00:12→17:04)
[2025-01-20] MEDS: NOVOLOG FLEXPEN-LOW RESISTANCE 2 UNITS SC (00:16)
[2025-01-20 00:18] LABS: Glucose - Point of Care 215 mg/dl (70-99)
[2025-01-20] MEDS: NORMOSOL-R/PLASMALYTE-A 1000 IV ×2 (02:41→14:05)
[2025-01-20] MEDS: NOVOLOG FLEXPEN-LOW RESISTANCE 1 UNITS SC ×4 (05:58→23:53)
[2025-01-20 06:00] VITALS: BMI 28.2
[2025-01-20 06:00] LABS: Glucose - Point of Care 193 mg/dl (70-99)
[2025-01-20 07:15] VITALS: BP 134/68
[2025-01-20 08:09] LABS: Hematocrit 33.9 % (37.0-47.0); Hemoglobin 11.2 g/dL (12.0-16.0); Mean Corp Hgb Conc. 33.0 g/dL (33.0-37.0); Mean Corpuscular Volume 90.6 fL (81.0-99.0); Nucleated Red Blood Cells % 0 %; Platelet Count 291 10^3/uL (130-400); Red Cell Dist. Width 12.4 % (11.5-14.5)
[2025-01-20 08:19] VITALS: BMI 28.2
[2025-01-20 08:25] LABS: Blood Urea Nitrogen 15 mg/dl (7-17); Calcium 8.4 mg/dl (8.4-10.2); Carbon Dioxide 25 mmol/L (22-30); Chloride 100 mmol/L (98-107); Estimated Creatinine Clearance 56 ml/min; Glucose 194 mg/dl (70-99); Potassium 4.3 mmol/L (3.5-5.1); Sodium 133 mmol/L (135-145); eGFR > 60.00
[2025-01-20] MEDS: FEMARA 2.5 MG PO (09:13)
[2025-01-20] MEDS: NORVASC 2.5 MG PO (09:13)
[2025-01-20] MEDS: DILAUDID 0.5 MG IV ×2 (09:17→15:07)
--- NOTE | 2025-01-20 10:15 | W.PN.HOSP.TC ---
Today's Communication/Plan
-
see plan
Assessment / Plan
Assessment / Plan
Gen: NAD, AAOx3.
Eyes: EOMI, PERRLA, no scleral icterus.
Neck: supple.
CV: RRR, +S1/S2, no m/r/g.
Resp: CTAB, no rales, wheezes, or rhonchi.
Abd: very hypoactive BS, soft, mild tenderness to palpation, ND
Skin: No rashes.
Neuro: CN 2-12 intact, non-focal.
Psych: Normal mood and affect.
CXR 01/09: No acute cardiopulmonary process.
Colonoscopy 01/18:
- Preparation of the colon was fair.
- Diverticulosis in the descending colon and in the sigmoid colon.
- Stool in the entire examined colon.
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
colon. Tattooed.
- No specimens collected.
Transverse colon mass:
-s/p open partial colectomy (portion of transverse colon), takedown of splenic flexure, and lysis of adhesions on 01/19/25
-CRS is primary and managing
Other problems:
DM2: a1c 8.6%, hold home Metformin, start Lantus 8U HS, cont SSI/accuchecks
Essential HTN: cont Norvasc
h/o metastatic breast cancer: cont Letrozole
HLD: cont statin
Thank you for the courtesy of this consultation. Please feel free to contact myself or my team with questions at any time. We will follow daily.
Anticipated Discharge: > 48 hours
Subjective/Interval History
-
Date of Service: January 20, 2025
Reports post-op abd pain.
Objective Data
-
Labs:
Laboratory Results
01/20/25
07:33
WBC 21.0 H
Hgb 11.2 L
Hct 33.9 L
Plt Count 291
Sodium 133 L
Potassium 4.3
Chloride 100
Carbon Dioxide 25
BUN 15
Creatinine 0.7
Glucose 194 H
Calcium 8.4
Vital Signs:
Vital Signs
Temp Pulse Resp BP Pulse Ox
97.7 F 86 18 134/68 93
01/20/25 07:15 01/20/25 07:15 01/20/25 07:15 01/20/25 07:15 01/20/25 07:15
I&O
01/19/25 01/20/25 01/21/25
06:59 06:59 05:59
Intake Total 4900 / 4900 100 / 100
Output Total 1050 / 1050
Balance 4900 / 4900 -950 / -950
[2025-01-20 11:52] LABS: Glucose - Point of Care 196 mg/dl (70-99)
--- NOTE | 2025-01-20 12:37 | W.PN.CRS1 ---
Addendum entered and electronically signed by All Vora MD 01/20/25 13:01:
Patient seen and examined. Agree with assessment plan as documented below.
Original Note:
Today's Communication / Plan
-
trial of clears
Assessment/Plan
-
84 yo female with h/o DM, breast ca with transverse colon mass now POD #1 1) open partial colectomy (portion of transverse colon) 2) takedown of splenic fluxure 3) lysis of adhesions
left chest wall nodule concerning for breast cancer (discussed with Dr. Dotson)
AFVSS
Leukocytosis present, reactive uptrend post op
H/H stable post op
Plan:
Medical management as per hospitalist
Trial of clears
Await OR path
Analgesics with tylenol and toradol scheduled. PRN diladuid.
Continue IVF until good po intake
OOB/Ambulate. PT/OT following
SCDs and Lovenox for VTE ppx
Subjective Data
Procedure
01/19/25 1) open partial colectomy (portion of transverse colon) 2) takedown of splenic flexure 3) lysis of adhesions
Subjective Data
Date of Service: January 20, 2025
Pt seen and examined at bedside with Dr. Vora. Denies n/v. Unsure if she is passing flatus. No Bm's as of yet. Incisional discomfort present.
Objective Data
-
Vital Signs
Temp Pulse Resp BP Pulse Ox
97.7 F 86 18 134/68 93
01/20/25 07:15 01/20/25 07:15 01/20/25 07:15 01/20/25 07:15 01/20/25 07:15
Intake & Output
01/19/25 01/20/25 01/21/25
06:59 06:59 05:59
Intake Total 4900 / 4900 100 / 100
Output Total 1050 / 1050
Balance 4900 / 4900 -950 / -950
Intake:
Oral fluids 4000 / 4000
IV fluids (Total) 900 / 900 100 / 100
Normosol 100 / 100
Output:
Urine, Lee 1050 / 1050
Other:
Number of approximated SMALL 1
amounts of urine
Number of approximated MODERATE 4
amounts of urine
Number of approximated LARGE 3
amounts of urine
Number of unmeasured liquid
stools
Rectum 3
Lab Results
01/20/25 07:33
01/20/25 07:33
Physical Exam
-
General: No Acute Distress and AOx3
Abdomen: Soft, Non Distended and Tender (incisional)
Skin: Warm and Dry
Incision: Clear, Dry, Intact (midline incision with intact dressing)
[2025-01-20] MEDS: TYLENOL 650 MG PO (12:38)
[2025-01-20 15:05] VITALS: BP 115/96
[2025-01-20] MEDS: TYLENOL PO ×2 (15:08→21:00)
[2025-01-20 16:22] LABS: Glucose - Point of Care 198 mg/dl (70-99)
[2025-01-20] MEDS: LIPITOR 20 MG PO (17:04)
[2025-01-20] MEDS: LOVENOX 40 MG SC (17:04)
[2025-01-20] MEDS: HALDOL 0.5 MG IV (17:30)
[2025-01-20 17:55] LABS: Glucose - Point of Care 174 mg/dl (70-99)
--- NOTE | 2025-01-20 18:10 | PTCARENOTE ---
notified by pts family member at 1750, that pt was unable to communicate with him and 'didn't look good'. went to see pt and she was indeed alert but unable to speak. she was also restless, moving her arms and legs without intention. pt was last
seen by myself at 1730 when she was alert oriented and conversational without difficulty. stroke alert was called. pt was unable to fully grasp my hand b/l, but could move her toes b/l. as we performed vital signs, assessment and lab draws, she
began to speak although garbled and difficult to understand. she was able to follow some simple commands, but couldnt perform others. oxygen saturation was low at 85% so oxygen was applied at 3LNC. orders for CT scan were placed, Dr Tripp was
present and pt was taken to CT scan
--- NOTE | 2025-01-20 18:14 | W.PN.UPDATE ---
Addendum entered and electronically signed by Ivana Tripp MD 01/21/25 07:16:
Patient was not a TNK candidate secondary to recent major surgery day prior.
Addendum entered and electronically signed by Ivana Tripp MD 01/20/25 19:34:
UA ordered
Addendum entered and electronically signed by Ivana Tripp MD 01/20/25 19:34:
will lower Lantus dosing given NPO status
will obtain EKG now to monitor QTc post Haldol
Original Note:
Update Note
Progress Note Update
Ms. Ene Brothers is a 84 yo woman with hx metastatic breast cancer, transverse colon mass s/p open partial colectomy on 01/19/35 with stroke code called at 6:01PM today. Patient was last seen normal at 5:30 PM. She is seen with her POA at
bedside.
BGL 170's. On exam patient is aphasia, she can answer her name but not able to state where she is; unable to state her last name. No obvious facial asymmetry. She is having trouble following commands. Can lift both arms off bed and hold against
gravity, can wiggle toes and withdraw LE to pain. Appears to have left sided neglect. NIHSS score 8-10.
Patient had to receive Haldol prior to CT scan because she was sitting up and restless, unable to complete scans. Benefits of obtaining imaging to determine if intervention candidate outweighed sedation effects and Haldol was given.
*Spoke to Dr. Acevedo - [facility] Neuro Fellow
CT Head without bleed, possible subacute left occipital bleed; CT perfusion normal
CTA Head without large vessel occlusion; moderate carotid plaque - no indication for transfer for IAT
Post scans patient is speaking more asking what is happening but she is confused and thinks she is at home.
Discussed with Dr. Vora and unsafe to give rectal aspirin given location of colectomy.
Discussing with RN's and overnight POSTAL SUPERINTENDENT. Patient's POA present as well. We will avoid dobhoff as patient will just rip it out given her confusion (already ripping things off her). Given improved speech, RN may be comfortable with bedside swallow
eval; if not will need to hold off on aspirin until tomorrow.
-transfer to tele
-neuro checks
-asa when safe to take
-lipitor when safe to take
-MRI
-hold METERS SUPERINTENDENT hypertensive meds
-formal neurology consult
-PT/OT/ST
-daytime team updated
-if patient agitated tonight can consider giving more Haldol
Total Critical Care Time 60 minutes. I was immediately available to the patient and staff. I personally examined, reviewed labs, diagnostic images/reports, interpretations, treatment plans, discussed patient care with other providers and family
or caregivers (if patient is unable to make decisions), entered orders as appropriate and documented the medical record.
[2025-01-20 18:19] LABS: Hematocrit 33.9 % (37.0-47.0); Hemoglobin 11.5 g/dL (12.0-16.0); Mean Corp Hgb Conc. 33.9 g/dL (33.0-37.0); Mean Corpuscular Volume 88.3 fL (81.0-99.0); Platelet Count 294 10^3/uL (130-400); Red Cell Dist. Width 12.7 % (11.5-14.5)
[2025-01-20 18:32] LABS: INR 1.15; PT 15.0 Sec (11.4-14.6)
[2025-01-20 18:33] LABS: APTT 37.9 Sec (23.4-35.0); AST (SGOT) 26 U/L (14-36); Albumin 3.1 g/dl (3.5-5.0); Alkaline Phosphatase 74 U/L (38-126); Blood Urea Nitrogen 16 mg/dl (7-17); Calcium 8.9 mg/dl (8.4-10.2); Carbon Dioxide 26 mmol/L (22-30); Chloride 98 mmol/L (98-107); Estimated Creatinine Clearance 49 ml/min; Glucose 179 mg/dl (70-99); Potassium 4.0 mmol/L (3.5-5.1); Sodium 130 mmol/L (135-145); Total Protein 5.7 g/dl (6.3-8.2); eGFR > 60.00
[2025-01-20 18:39] LABS: ALT (SGPT) 21 U/L (0-35)
[2025-01-20 19:00] VITALS: BP 154/64
[2025-01-20 23:33] LABS: Glucose - Point of Care 150 mg/dl (70-99)
[2025-01-20] MEDS: LANTUS 0.04 UNITS SC (23:35)
[2025-01-20 23:51] LABS: Urine Character Clear (Clear)
[2025-01-20 23:53] VITALS: BP 159/78
[2025-01-21] VITALS (7 sets, daily range): BP systolic 110–196; BP diastolic 66–94; BMI 29.3; BMI 29.4
[2025-01-21 00:05] LABS: Urine Squamous Cell 0-2 /LPF (Few)
[2025-01-21 00:06] LABS: Urine Red Blood Cell 0-2 /HPF (0-2)
[2025-01-21] MEDS: TYLENOL PO ×3 (00:21→11:11)
[2025-01-21] MEDS: DILAUDID 0.25 MG IV (02:03)
[2025-01-21] MEDS: NOVOLOG FLEXPEN-LOW RESISTANCE SC (05:23)
[2025-01-21 05:24] LABS: Glucose - Point of Care 146 mg/dl (70-99)
--- NOTE | 2025-01-21 08:11 | W.PN.HOSP.TC ---
Addendum entered and electronically signed by Stevie Macario MD 01/21/25 09:28:
Just received a [employer] message from Dr. Vora that pt can have rectal ASA, now ordered.
Original Note:
Today's Communication/Plan
-
see plan
Assessment / Plan
Assessment / Plan
Gen: NAD, AAOx3.
Eyes: EOMI, PERRLA, no scleral icterus.
Neck: supple.
CV: RRR, +S1/S2, no m/r/g.
Resp: CTAB, no rales, wheezes, or rhonchi.
Abd: very hypoactive BS, soft, mild tenderness to palpation, ND
Skin: No rashes.
Neuro: CN 2-12 intact, non-focal (note neuro exam limited due to confusion)
Psych: Normal mood and affect.
CXR 01/09: No acute cardiopulmonary process.
Colonoscopy 01/18:
- Preparation of the colon was fair.
- Diverticulosis in the descending colon and in the sigmoid colon.
- Stool in the entire examined colon.
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
colon. Tattooed.
- No specimens collected.
CT brain: There is a hypodensity within the inferior left cerebellar hemisphere for which a subacute infarction is possible. No evidence of acute intracranial hemorrhage.
CTA Head: No large vessel occlusion. There is mild stenosis within the bilateral supraclinoid ICAs as well as the bilateral M1 segments of the middle cerebral arteries. There is focal high-grade stenosis within the A3 segment of the left anterior
cerebral artery.
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
Aphasia, CVA alert /1PM:
-c/s neuro
-CVA alert documentation reviewed, not a TNK candidate with recent major surgery
-imaging above, CTA head/neck without LVO. 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 CT brain with possible subacute infarction in L cerebellar hemisphere.
-as per discussion with Dr. Vora 11/1PM, rectal ASA was not safe to be given from his standpoint (due to proximity of anastomosis).
-check MRI brain
-c/s speech
-start NS @ 75cc/hr
-neurochecks
-no DHT now as pt would likely pull it out with confusion
Transverse colon mass:
-s/p open partial colectomy (portion of transverse colon), takedown of splenic flexure, and lysis of adhesions on 01/19/25
-CRS is primary and managing
Other problems:
Hyponatremia, mild, trend
DM2: a1c 8.6%, holding home Metformin, cont Lantus 4U HS, cont SSI/accuchecks
Essential HTN: cont Norvasc
h/o metastatic breast cancer: cont Letrozole
HLD: cont statin
Pt's POA updated at length over the phone 01/21.
Total time spent on today's encounter was 50 minutes which included time spent in counseling the patient/family regarding diagnosis and treatment plan as listed above, goals of care, and symptom management. Case was discussed with nursing staff,
specialists, and care coordinators/case management. All labs and imaging personally reviewed by me. Remainder the time spent in detailed review of previous records, lab data, imaging, and other medical provider documentation.
Anticipated Discharge: > 48 hours
Subjective/Interval History
-
Date of Service: January 21, 2025
Pt confused with with slurred speech.
Objective Data
-
Labs:
Laboratory Results
01/21/25
06:00
WBC Pending
Hgb Pending
Hct Pending
Plt Count Pending
Sodium Pending
Potassium Pending
Chloride Pending
Carbon Dioxide Pending
BUN Pending
Creatinine Pending
Glucose Pending
Calcium Pending
Vital Signs:
Vital Signs
Temp Pulse Resp BP Pulse Ox
97.9 F 110 20 150/78 94
01/21/25 07:24 01/21/25 07:24 01/21/25 07:24 01/21/25 07:24 01/21/25 07:24
I&O
01/20/25 01/21/25 01/22/25
06:59 05:59 06:59
Intake Total 100 / 100 600 / 600
Output Total 1050 / 1050 875 / 875
Balance -950 / -950 -275 / -275
--- NOTE | 2025-01-21 08:32 | CON.NEURO4 ---
Addendum entered and electronically signed by Teja Rosado MD 01/21/25 18:56:
The patient may have had a brainstem CVA due to focal high-grade stenosis within the proximal basilar artery, as seen on the CTA head/neck.
MRI brain is pending.
Original Note:
Consultation - Neurology 4
-
CONSULTING PHYSICIAN: Dr. Teja Rosado
REFERRING PHYSICIAN: Dr. Singh Kulkarni
DICTATED BY: Dr. Teja Rosado
DATE/TIME OF REQUEST: 01/21/2025
DATE/TIME OF CONSULTATION: 01/21/2025
Reason for Consultation: Stroke alert. Aphasia
ASSESSMENT AND PLAN:
Ms. Ene Brothers is a 84 yo woman with hx metastatic breast cancer, transverse colon mass s/p open partial colectomy on 01/19/35 with stroke code called at 6:01PM yesterday for aphasia. [facility] neuro fellow was contacted yesterday and
patient was not found to be a candidate for TNK due to recent major surgery.
CT head: There is a hypodensity within the inferior left cerebellar hemisphere for which a subacute infarction is possible. No evidence of acute intracranial hemorrhage.
CTA Head: No large vessel occlusion. There is mild stenosis within the bilateral supraclinoid ICAs as well as the bilateral M1 segments of the middle cerebral arteries. There is focal high-grade stenosis within the A3 segment of the left anterior
cerebral artery.
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
The plan is to keep the patient on stroke pathway and get an echocardiogram. Patient will be on aspirin 300 mg given rectally. Will will also keep the patient on atorvastatin 40 mg daily when the patient is able to take medicines orally. Also the
plan is to get MRI of the brain when the patient is able to cooperate.
History of Present Illness:
Ms. Ene Brothers is a 84 yo woman with hx metastatic breast cancer, transverse colon mass s/p open partial colectomy on 01/19/35 with stroke code called at 6:01PM yesterday for aphasia. [facility] neuro fellow was contacted yesterday and
patient was not found to be a candidate for TNK due to recent major surgery.
Review of Systems: Unable to obtain the review of systems as the patient was unable to provide history.
Neurologic Examination:
The neurologic examination was very limited as the patient was unable to cooperate with examination. She has severe aphasia. She is unable to tell her name or age. She is unable to follow verbal commands. However she was able to open her eyes to
painful stimulus and was able to move all extremities spontaneously.
Vital Signs and Labs
-
Vital Signs and Labs:
Vital Signs
Temp Pulse Resp BP Pulse Ox
36.4 C 118 22 166/89 93
01/21/25 16:09 01/21/25 16:09 01/21/25 16:09 01/21/25 16:09 01/21/25 16:09
Lab Results
01/21/25 08:40
01/21/25 08:40
PT 15.0 Sec (11.4-14.6) H 01/20/25 18:05
INR 1.15 01/20/25 18:05
APTT 37.9 Sec (23.4-35.0) H 01/20/25 18:05
Sodium 134 mmol/L (135-145) L 01/21/25 08:40
Potassium 3.8 mmol/L (3.5-5.1) 01/21/25 08:40
BUN 14 mg/dl (7-17) 01/21/25 08:40
Glucose 155 mg/dl (70-99) H 01/21/25 08:40
Calcium 8.4 mg/dl (8.4-10.2) 01/21/25 08:40
LDL Cholesterol, Calc 31 mg/dl 01/21/25 08:40
Medications
-
Active Medications
Generic Name Dose Route Start Last Admin
Trade Name Freq PRN Reason Stop Dose Admin
Amlodipine Besylate 2.5 mg 01/17/25 20:00 01/20/25 09:13
Amlodipine 2.5 Mg Tablet PO 02/14/25 19:59 2.5 mg
On Hold: 01/20/25 18:18 BID BESS Administration
Aspirin 300 mg 01/21/25 10:00 01/21/25 10:34
Aspirin 300 Mg Rectal Suppository RECTAL 02/18/25 09:59 300 mg
DAILY BESS Administration
Atorvastatin Calcium 40 mg 01/20/25 19:33
Atorvastatin (Lipitor) 20 Mg Tablet PO 02/15/25 17:59
QPM BESS
Enoxaparin Sodium 40 mg 01/20/25 18:00 01/20/25 17:04
Enoxaparin Sodium 40 Mg/0.4 Ml Syringe SC 02/17/25 17:59 40 mg
QPM BESS Administration
Hydromorphone HCl 0.5 mg 01/17/25 17:17 01/20/25 15:07
Hydromorphone 0.5 Mg/0.5 Ml Syringe IV 01/31/25 17:16 0.5 mg
Q4HPRN PRN Administration
severe pain
Hydromorphone HCl 0.25 mg 01/17/25 17:17 01/21/25 02:03
Hydromorphone 0.25 Mg/0.5 Ml Syringe IV 01/31/25 17:16 0.25 mg
Q4HPRN PRN Administration
moderate pain
Parenteral Electrolytes 1,000 mls @ 75 mls/hr 01/20/25 01:15 01/21/25 10:19
Normosol-R/Plasmalyte-A IV Not Given
.[id number] BESS
Insulin Glargine 4 units/ 0.04 mls @ 0 mls/hr 01/20/25 22:00 01/20/25 23:35
Device SC 02/17/25 21:59 0.04 mls
HS BESS Administration
As Directed
Acetaminophen 1,000 mg in 100 mls @ 400 mls/hr 01/21/25 09:01
Ofirmev IV 01/22/25 09:00
Q6HPRN PRN
mild pain
Protocol
Sodium Chloride 1,000 mls @ 75 mls/hr 01/21/25 09:30 01/21/25 13:01
Nss IV 1,000 mls
.[id number] BESS Administration
Insulin Aspart 0 units 01/18/25 06:00 01/21/25 13:02
Insulin Aspart Low Resistance 300 Units/3 Ml Pen.Injctr SC 02/15/25 05:59 1 units
Q6 BESS Administration
Protocol
Ketorolac Tromethamine 15 mg 01/19/25 12:00 01/20/25 17:04
Ketorolac 15 Mg/Ml Injection IV 01/24/25 11:59 15 mg
On Hold: 01/20/25 18:19 Q6H BESS Administration
Letrozole 2.5 mg 01/18/25 08:00 01/21/25 10:49
Letrozole 2.5 Mg (Non-Form) Tablet PO 02/15/25 07:59 Not Given
DAILY BESS
Ondansetron HCl 4 mg 01/19/25 11:48
Ondansetron 4 Mg/2 Ml Vial IV 02/16/25 11:47
Q6HPRN PRN
nausea/vomiting
Sodium Chloride 0 flush 01/17/25 18:00
Sodium Chloride 0.9% (Flush) Syringe IV 02/14/25 17:59
PER PROTOCOL BESS
Home Medications
�Medication �Instructions �Recorded
aspirin 81 mg chewable tablet 81 mg PO DAILY 30 days #30 tabs 06/23/21
atorvastatin 20 mg tablet 20 mg PO QPM 30 days #30 tabs 06/23/21
blood sugar diagnostic (OneTouch #100 strips 06/23/21
Verio test strips)
docusate sodium 100 mg capsule 100 mg PO BIDPRN PRN constipation 06/23/21
30 days #60 caps
lancets 30 gauge (OneTouch Delica #100 ea 06/23/21
Lancets)
letrozole 2.5 mg tablet 2.5 mg PO DAILY 30 days #30 tabs 06/23/21
metformin 500 mg tablet 500 mg PO BID Diabetes 01/09/25
amlodipine 2.5 mg tablet 2.5 mg PO BID Blood Pressure 01/17/25
[2025-01-21 09:07] LABS: Hematocrit 33.9 % (37.0-47.0); Hemoglobin 11.2 g/dL (12.0-16.0); Mean Corp Hgb Conc. 33.0 g/dL (33.0-37.0); Mean Corpuscular Volume 91.9 fL (81.0-99.0); Platelet Count 289 10^3/uL (130-400); Red Cell Dist. Width 12.7 % (11.5-14.5)
[2025-01-21 09:38] LABS: Blood Urea Nitrogen 14 mg/dl (7-17); Calcium 8.4 mg/dl (8.4-10.2); Carbon Dioxide 26 mmol/L (22-30); Chloride 100 mmol/L (98-107); Estimated Creatinine Clearance 57 ml/min; Glucose 155 mg/dl (70-99); HDL Cholesterol 37 mg/dl; LDL Cholesterol, Calculated 31 mg/dl; Potassium 3.8 mmol/L (3.5-5.1); Sodium 134 mmol/L (135-145); Very Low Density Lipoprotein 18 mg/dl (0-30); eGFR > 60.00
--- NOTE | 2025-01-21 09:38 | CM ---
Chart reviewed and physical therapy are recommending rehab v's home physical therapy will need final recommendation from physical therapy and will discuss with patient and family best plan for patient.
Plan; rehab placement.
--- NOTE | 2025-01-21 10:06 | W.PN.CRS1 ---
Addendum entered and electronically signed by All Vora MD 01/21/25 10:42:
Patient seen examined. Agree with assessment plan as documented below.
Original Note:
Today's Communication / Plan
-
ok for rectal ASA
Assessment/Plan
-
84 yo female with h/o DM, breast ca with transverse colon mass now
POD #2 1) open partial colectomy (portion of transverse colon) 2) takedown of splenic fluxure 3) lysis of adhesions
AFVSS
CVA yesterday evening affecting speech, ?swallow as well
Leukocytosis present, trending down
H/H stable post op
Plan:
Medical management as per hospitalist
D/W primary surgeon, ok to give rectal ASA
MRI/Neuro consults pendings
ARCHIVIST eval pending, NPO given concern for swallow. Would resume clears if able.
Await OR path
Analgesics with tylenol IV and PRN diladuid.
IVF as per primary team
OOB/Ambulate. PT/OT following
SCDs and Lovenox for VTE ppx
Subjective Data
Procedure
01/19/25 1) open partial colectomy (portion of transverse colon) 2) takedown of splenic flexure 3) lysis of adhesions
Subjective Data
Date of Service: January 21, 2025
Pt seen and examined at bedside with Dr. Vora. Difficulty conversing but nods yes that she has some abdominal pain. Events of yesterday evening noted.
Objective Data
-
Vital Signs
Temp Pulse Resp BP Pulse Ox
97.9 F 110 20 150/78 94
01/21/25 07:24 01/21/25 07:24 01/21/25 07:24 01/21/25 07:24 01/21/25 07:24
Intake & Output
01/20/25 01/21/25 01/22/25
06:59 05:59 06:59
Intake Total 100 / 100 600 / 600
Output Total 1050 / 1050 875 / 875
Balance -950 / -950 -275 / -275
Intake:
IV fluids (Total) 100 / 100 600 / 600
Normosol 100 / 100
Output:
Urine, Lee 1050 / 1050 875 / 875
Lab Results
01/21/25 08:40
01/21/25 08:40
Physical Exam
-
General: Other (curled up in bed, difficulty conversing. nods head appropriately)
Abdomen: Soft, Non Distended and Tender (incisional)
Skin: Warm and Dry
Incision: Clear, Dry, Intact (midline incision with intact dressing)
[2025-01-21] MEDS: NORMOSOL-R/PLASMALYTE-A IV ×2 (10:19→18:31)
[2025-01-21] MEDS: ASPIRIN 300 MG RECTAL (10:34)
[2025-01-21] MEDS: FEMARA PO ×2 (10:34→10:49)
--- NOTE | 2025-01-21 11:03 | PTOTSP ---
Speech Therapy Evaluation:
Pt with chronic risk factors for dysphagia (polio) and acute risk factors for dysphagia (subacute infarct). Assessment limited given cognitive status and decreased command following. Pt cleared for CLD per general surgery. With thin liquids, no
overt s/sx of aspiration observed, however risk increased with current mentation/confusion.
Recommend:
1. IDDSI 0 (thin liquids) Clears per medical team
2. Meds crushed in puree if cleared by general surgery
3. Strict aspiration precautions
4. 1:1 assistance and supervison
5. DRUM DRIER to follow to assess tolerance of diet and candidacy for diet advancements as able
--- NOTE | 2025-01-21 12:00 | PTCARENOTE ---
Pt's mental state has been in and out of lethargic state. Difficult to preform NIH and Q4 neuro checks due to unable to follow commands. Neurologist aware and present during 1200 Q4 neuro checks. plan of care ongoing.
[2025-01-21 12:09] LABS: Glucose - Point of Care 171 mg/dl (70-99)
[2025-01-21] MEDS: NSS 1000 IV (13:01)
[2025-01-21] MEDS: NOVOLOG FLEXPEN-LOW RESISTANCE 1 UNITS SC ×2 (13:02→20:02)
[2025-01-21 17:30] LABS: Glucose - Point of Care 173 mg/dl (70-99)
[2025-01-21] MEDS: LIPITOR PO (18:36)
[2025-01-21] MEDS: LOVENOX SC (18:36)
--- NOTE | 2025-01-21 20:33 | W.PN.UPDATE ---
Update Note
Progress Note Update
Reported by the nursing staff a change in NIH score.
-Patient assessed at bedside. Difficult to perform neuro assessment/NIH on exam as the patient not able to follow directions, confused and not able to answer questions. BP 196/94, hr 111, RR 18,SPo2 92%, temp 98.6. Bs 173.
-Neurology alternative dispute resolution mediator notified and recommendation received to repeat head CT w/o IV contrast.
Temp rechecked after patient back to floor from CT , temp is 100.1.
cbc, bmp, blood cultures and lactic ordered.
Repeated head CT shows
1. 1.8 cm ACUTE ISCHEMIC INFARCT in the POSTERIOR LEFT CEREBELLAR HEMISPHERE containing cytotoxic edema which appears to have mildly increased since 01/20/2025.
2. No CT evidence for acute intracranial hemorrhage, midline shift, or herniation.
3. 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
4. Mild white matter leukoaraiosis in the frontal and parietal lobes.
5. Mild to moderate diffuse cerebral and cerebellar volume loss.
-CT result discussed with the neurology alternative dispute resolution mediator Dr. Rosado. Plan for MRI w/o contrast.
-Discussed the changes with the POA/ Dates, Brain, also code status was discussed and changed from full code to DNR per the discussion with POA.
-IMU level
[2025-01-21] MEDS: VALIUM INJECTION 1 MG IV (20:49)
[2025-01-21 21:31] LABS: Glucose - Point of Care 163 mg/dl (70-99)
[2025-01-21] MEDS: OFIRMEV 100 IV (22:19)
[2025-01-21] MEDS: LANTUS 0.04 UNITS SC (22:21)
--- NOTE | 2025-01-21 22:30 | PTCARENOTE ---
Patient's start of shift NIH had increased from previous night. Patient was confused and restless at times during assessment. Also, limited in following commands and inconsistent in responses. Vitals: 196/94 HR 111 T 98.6 RR 18 Pulse ox 92% on RA.
Dayshift RN reported similar experience while completing NIH and had increased NIH scores from previous night. Messaged neurologist that had seen her today. He ordered repeat CT scan. Prior to going to CT scan, patient was less responsive to
questions, requiring frequent redirection and increasingly restless. One time dose of IV Valium 1mg given at 0 for restlessness prior to CT scan. PRESS READER requested bladder scan and rectal temp when patient returned from CT scan.
After CT was completed, neurologist requested patient to be transferred to IMU. PRESS READER notified. Obtained IMU room from aging department supervisor. Vitals BP 110/81 HR 102 T 100.1 rectally RR 18 Pulse Ox 93% on RA. Bladder scan @ 2125 was 375. PRESS READER ordered patient to get
dose of IV Tylenol.
Report called to Elmer in IMU at approx 2140. IV Tylenol and scheduled Lantus given.
--- NOTE | 2025-01-21 22:45 | PTCARENOTE ---
Patient transported to IMU with RN and PCT at approx 2245. IMU RN provided update call prior to transfer.
--- NOTE | 2025-01-21 23:06 | PTCARENOTE ---
report received from Salome DUBON. this RN assumed care of pt. this RN at bedside assessing pt.
--- NOTE | 2025-01-21 23:53 | PTCARENOTE ---
Assumed care of Pt from previous RN after having a head CT at 20:29 due to change in mentation. this RN assumed care of pt after receiving report. Pt presenting to be restless, difficulty following commands, speaking in incomprehensible words/
speech. NIH preformed at bedside by this RN, difficulty scoring assessment r/t Pts current mentation. NIH Scoring a 17 for this RN. Discussed NIH scoring with MARIANA Dozier. Tasia PEÑA informed this RN that Pts current assessment is parallel to the
change in mentation which triggered the ordering of the CT.
[2025-01-22] VITALS (11 sets, daily range): BP systolic 120–163; BP diastolic 54–105
[2025-01-22 01:17] LABS: COVID-19 Antigen Negative (Negative)
[2025-01-22 01:20] LABS: Hematocrit 31.2 % (37.0-47.0); Hemoglobin 10.6 g/dL (12.0-16.0); Mean Corp Hgb Conc. 34.0 g/dL (33.0-37.0); Mean Corpuscular Volume 86.9 fL (81.0-99.0); Platelet Count 287 10^3/uL (130-400); Red Cell Dist. Width 12.5 % (11.5-14.5)
[2025-01-22 01:25] LABS: Blood Urea Nitrogen 11 mg/dl (7-17); Calcium 8.6 mg/dl (8.4-10.2); Carbon Dioxide 25 mmol/L (22-30); Chloride 101 mmol/L (98-107); Estimated Creatinine Clearance 67 ml/min; Glucose 163 mg/dl (70-99); Magnesium 1.8 mg/dl (1.6-2.3); Potassium 4.0 mmol/L (3.5-5.1); Sodium 133 mmol/L (135-145); eGFR > 60.00
[2025-01-22] MEDS: NOVOLOG FLEXPEN-LOW RESISTANCE 1 UNITS SC ×2 (02:03→18:07)
[2025-01-22 02:16] LABS: Glucose - Point of Care 177 mg/dl (70-99)
[2025-01-22 05:12] LABS: Hematocrit 30.5 % (37.0-47.0); Hemoglobin 10.6 g/dL (12.0-16.0); Mean Corp Hgb Conc. 34.8 g/dL (33.0-37.0); Mean Corpuscular Volume 87.4 fL (81.0-99.0); Platelet Count 273 10^3/uL (130-400); Red Cell Dist. Width 12.4 % (11.5-14.5)
[2025-01-22 05:34] LABS: Blood Urea Nitrogen 11 mg/dl (7-17); Calcium 8.7 mg/dl (8.4-10.2); Carbon Dioxide 24 mmol/L (22-30); Chloride 101 mmol/L (98-107); Estimated Creatinine Clearance 67 ml/min; Glucose 142 mg/dl (70-99); Potassium 4.1 mmol/L (3.5-5.1); Sodium 130 mmol/L (135-145); eGFR > 60.00
[2025-01-22] MEDS: NOVOLOG FLEXPEN-LOW RESISTANCE SC ×3 (06:00→23:20)
[2025-01-22 06:10] LABS: Glucose - Point of Care 134 mg/dl (70-99)
[2025-01-22] MEDS: FEMARA PO (07:50)
[2025-01-22] MEDS: NORMOSOL-R/PLASMALYTE-A IV (07:50)
[2025-01-22] MEDS: NSS IV (07:50)
[2025-01-22] MEDS: ASPIRIN 300 MG RECTAL (08:02)
--- NOTE | 2025-01-22 09:14 | PTOTSP ---
Reviewed chart and noted pt transferred to IMU overnight and PT/OT orders were not continued upon transfer. Will need updated PT and OT orders if stable to resume therapy activity.
--- NOTE | 2025-01-22 10:00 | PTCARENOTE ---
Lee placed per order. Latex free catheter due to allergy to latex. Patient tolerated well. Yellow urine. Care ongoing.
[2025-01-22] MEDS: NSS 1000 IV (10:01)
--- NOTE | 2025-01-22 10:56 | W.PN.NEURO.1 ---
Today's Communication / Plan
-
Continue aspirin 300 mg per rectum
Because of continued concern regarding patient's waxing waning mental status, check EEG
Unable to take by mouth, restart cholesterol-lowering agent, and start clopidogrel
Neuro Assessment/Plan
Assessment
84 yo woman with hx metastatic breast cancer, transverse colon mass s/p open partial colectomy on 01/19/25 with stroke alert called at 6:01PM January 20, 2025 for aphasia. [facility] neuro fellow was contacted January 20, 2025 and patient was
not found to be a candidate for TNK due to recent major surgery.
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
MRI of brain IMPRESSION: Regions of abnormal restricted diffusion within the inferior left cerebellar hemisphere as described, compatible with acute to subacute infarction.
3 mm focus of restricted diffusion in the white matter posterior to the atria of the right lateral ventricle, near the parieto-occipital junction, also compatible with a small focus of acute to subacute infarction.
Plan
Continue aspirin 300 mg per rectum
Because of continued concern regarding patient's waxing waning mental status, check EEG
Unable to take by mouth, restart cholesterol-lowering agent, and start clopidogrel
Will follow peripherally
Subjective/Objective
Subjective Data
Date of Service: January 22, 2025
Objective Data
Vital Signs
Temp Pulse Resp BP Pulse Ox
36.5 C 68 14 132/72 97
01/22/25 08:27 01/22/25 07:30 01/22/25 07:30 01/22/25 06:00 01/22/25 07:30
Lab Results
01/22/25 04:51
01/22/25 04:51
PT 15.0 Sec (11.4-14.6) H 01/20/25 18:05
INR 1.15 01/20/25 18:05
APTT 37.9 Sec (23.4-35.0) H 01/20/25 18:05
Sodium 130 mmol/L (135-145) L 01/22/25 04:51
Potassium 4.1 mmol/L (3.5-5.1) 01/22/25 04:51
BUN 11 mg/dl (7-17) 01/22/25 04:51
Glucose 142 mg/dl (70-99) H 01/22/25 04:51
Calcium 8.7 mg/dl (8.4-10.2) 01/22/25 04:51
LDL Cholesterol, Calc 31 mg/dl 01/21/25 08:40
Patient Allergies
codeine Allergy (Verified 01/10/23 19:07)
Unknown
latex Allergy (Verified 01/10/23 19:07)
Unknown
pentazocine Allergy (Verified 01/10/23 19:07)
Pt does not know if this is an allergy
Past History
Past History
ED Past Medical History: Asthma, Cancer (Adrenal tumor, breast), CVA, NIDDM and Other (Pheochromocytoma)
ED Past Surgical History: Bowel resection, Orthopedic and Urological (Nephrectomy)
Social History
Tobacco: Non-smoker
Alcohol: None
Drug: None
Medications
-
Medications:
Generic Name Dose Route Start Last Admin
Trade Name Freq PRN Reason Stop Dose Admin
Amlodipine Besylate 2.5 mg 01/17/25 20:00 01/20/25 09:13
Amlodipine 2.5 Mg Tablet PO 02/14/25 19:59 2.5 mg
On Hold: 01/20/25 18:18 BID BESS Administration
Aspirin 300 mg 01/21/25 10:00 01/22/25 08:02
Aspirin 300 Mg Rectal Suppository RECTAL 02/18/25 09:59 300 mg
DAILY BESS Administration
Atorvastatin Calcium 40 mg 01/20/25 19:33 01/21/25 18:36
Atorvastatin (Lipitor) 20 Mg Tablet PO 02/15/25 17:59 Not Given
QPM BESS
Enoxaparin Sodium 40 mg 01/20/25 18:00 01/21/25 18:36
Enoxaparin Sodium 40 Mg/0.4 Ml Syringe SC 02/17/25 17:59 Not Given
QPM BESS
Hydromorphone HCl 0.5 mg 01/17/25 17:17 01/20/25 15:07
Hydromorphone 0.5 Mg/0.5 Ml Syringe IV 01/31/25 17:16 0.5 mg
Q4HPRN PRN Administration
severe pain
Hydromorphone HCl 0.25 mg 01/17/25 17:17 01/21/25 02:03
Hydromorphone 0.25 Mg/0.5 Ml Syringe IV 01/31/25 17:16 0.25 mg
Q4HPRN PRN Administration
moderate pain
Parenteral Electrolytes 1,000 mls @ 75 mls/hr 01/20/25 01:15 01/22/25 07:50
Normosol-R/Plasmalyte-A IV Not Given
.[id number] BESS
Insulin Glargine 4 units/ 0.04 mls @ 0 mls/hr 01/20/25 22:00 01/21/25 22:21
Device SC 02/17/25 21:59 0.04 mls
HS BESS Administration
As Directed
Sodium Chloride 1,000 mls @ 75 mls/hr 01/21/25 09:30 01/22/25 10:01
Nss IV 1,000 mls
.[id number] BSES Administration
Insulin Aspart 0 units 01/18/25 06:00 01/22/25 06:00
Insulin Aspart Low Resistance 300 Units/3 Ml Pen.Injctr SC 02/15/25 05:59 Not Given
Q6 BESS
Protocol
Ketorolac Tromethamine 15 mg 01/19/25 12:00 01/20/25 17:04
Ketorolac 15 Mg/Ml Injection IV 01/24/25 11:59 15 mg
On Hold: 01/20/25 18:19 Q6H BESS Administration
Letrozole 2.5 mg 01/18/25 08:00 01/22/25 07:50
Letrozole 2.5 Mg (Non-Form) Tablet PO 02/15/25 07:59 Not Given
DAILY BESS
Ondansetron HCl 4 mg 01/19/25 11:48
Ondansetron 4 Mg/2 Ml Vial IV 02/16/25 11:47
Q6HPRN PRN
nausea/vomiting
Sodium Chloride 0 flush 01/17/25 18:00
Sodium Chloride 0.9% (Flush) Syringe IV 02/14/25 17:59
PER PROTOCOL BESS
--- NOTE | 2025-01-22 11:07 | PTCARENOTE ---
Patient much more alert and following commands. Patient able to answer orientation questions appropriately. Patient stated that she is 'not hungry and does not want to eat'. NIH reevaluated and is 9. Denies pain at this time. Dr. Peck and speech
updated. Care ongoing.
--- NOTE | 2025-01-22 11:11 | W.PN.CRS1 ---
Today's Communication / Plan
-
neurology opinion
will touch base with family today
continue ASA 300mg rectal
Assessment/Plan
-
84 yo female with h/o DM, breast ca with transverse colon mass now
POD #3 1) open partial colectomy (portion of transverse colon) 2) takedown of splenic fluxure 3) lysis of adhesions
AFVSS
neuro status change last night - CT with left posterior cellebellar stroke
Plan:
-Medical management as per hospitalist
-D/W primary surgeon, ok to give rectal ASA
-MRI performed this AM: inferior left cerebellar hemisphere, there are several patchy regions of restricted diffusion, which in conglomerate measure approximately 3 cm AP by 2.8 cm transverse by 2 cm craniocaudal, 3 mm focus of restricted diffusion
in the white matter posterior to the atria of the right lateral ventricle, near the parieto-occipital junction, also compatible with a small focus of acute to subacute infarction.
-Will await neurology opinion.
-NPO for now, will re-eval with speech when can start clears
-Await OR path
-Analgesics with tylenol IV and PRN diladuid.
-IVF as per primary team
-OOB/Ambulate. PT/OT following
-SCDs and Lovenox for VTE ppx
-Will discuss goals of care with POA today. Patient now DNR.
-Appeciate hospitalist.
Subjective Data
Procedure
01/19/25 1) open partial colectomy (portion of transverse colon) 2) takedown of splenic flexure 3) lysis of adhesions
Subjective Data
Date of Service: January 22, 2025
Patient only opens eyes to deep stimulation. She had another neuro change overnight, CT head showed acute ischemic infarct in the left posterior cerebellar hemisphere.
Objective Data
-
Vital Signs
Temp Pulse Resp BP Pulse Ox
97.7 F 76 15 132/72 94
01/22/25 08:27 01/22/25 11:00 01/22/25 11:00 01/22/25 06:00 01/22/25 11:00
Intake & Output
01/21/25 01/22/25 01/23/25
05:59 06:59 06:59
Intake Total 600 / 600 930 / 930
Output Total 875 / 875 1675 / 1675
Balance -275 / -275 -745 / -745
Intake:
Oral fluids 30 / 30
IV fluids (Total) 600 / 600 900 / 900
Output:
Urine, Lee 875 / 875
Urine, Voided 850 / 850
Straight cath output 825 / 825
Other:
How many times incontinent 1
SMALL amount urine
Number of unmeasured liquid
stools
Rectum 2
Lab Results
01/22/25 04:51
01/22/25 04:51
Physical Exam
-
General: Other (not responsive)
HEENT: Other (pupils 2mm and sluggish)
Abdomen: Soft, Non Distended and Non Tender
Skin: Warm and Dry
Wound: No Signs of Infection and Dressing in Place
--- NOTE | 2025-01-22 12:08 | PTCARENOTE ---
Patient only opening eyes to painful stimuli. Dr. Mcguire aware and at bedside. Dr. Mcguire updated POA.
[2025-01-22 12:17] LABS: Glucose - Point of Care 140 mg/dl (70-99)
[2025-01-22 12:28] LABS: Urine Character Clear (Clear)
[2025-01-22 12:42] LABS: Urine White Cell 0-2 /HPF (0-5)
--- NOTE | 2025-01-22 15:35 | PTCARENOTE ---
Per chart, patient's POA is Srikanth Knott. Official signed 'medical power of dynamo tender' paper signed in paper chart. Patients oldest daughter Cheyanne called asking for an update on patient. Informed Cheyanne that she is not on the contact list and that she
would need contact Srikanth as he is the POA.
--- NOTE | 2025-01-22 15:40 | PTCARENOTE ---
Patient AOx1 (self). Mentation waxing and weaning throughout the shift. Q4 NIH completed. See 'worklist' for documentation. L sided facial droop post CVA. On RA with SpO2 greater than 92%. NSR with BBB on monitor. Lee draining yellow urine. NPO.
Q6 accuchecks. Midline dressing with small amount of old drainage. IVF running per order. EEG and MRI of brain completed during shift. Call sharma within reach, bed in lowest position, and bed of wheels locked. Bed alarm on and audible. NILSON Duke
updated on plan of care by RN, Dr. Kulkarni, and Merlyn GALVAN.
--- NOTE | 2025-01-22 15:59 | PTCARENOTE ---
NILSON Duke and patients children requesting to speak to Dr. Kulkarni. This RN TigerTexted Dr. Kulkarni asking him to come to IMU to speak with family and POA. Dr. Kulkarni to unit to speak with family and POA.
--- NOTE | 2025-01-22 16:30 | W.PN.HOSP.TC ---
Today's Communication/Plan
-
continue post-op care per colorectal primary; recommend DHT tube to facilitate intake/meds
EEG as per Neurology; rectal ASA and consider start Plavix tomorrow when ok with CRS primary service
Assessment / Plan
Assessment / Plan
CXR 01/09: No acute cardiopulmonary process.
Colonoscopy 01/18:
- Preparation of the colon was fair.
- Diverticulosis in the descending colon and in the sigmoid colon.
- Stool in the entire examined colon.
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
colon. Tattooed.
- No specimens collected.
CT brain: There is a hypodensity within the inferior left cerebellar hemisphere for which a subacute infarction is possible. No evidence of acute intracranial hemorrhage.
CTA Head: No large vessel occlusion. There is mild stenosis within the bilateral supraclinoid ICAs as well as the bilateral M1 segments of the middle cerebral arteries. There is focal high-grade stenosis within the A3 segment of the left anterior
cerebral artery.
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
Assessment:
Acute CVA
- MRI: inferior left cerebellar hemisphere 3 x 2.8 x 2.cm acute to subacute infarct. Also 3 mm focus of restricted diffusion in the white matter posterior to the atria of the right lateral ventricle, near the parieto-occipital junction
- check Echo
- Neuro following. previously not a TNK candidate due to major surgery
- continue rectal ASA. Plavix when ok with surgery service.
- ongoing waxing/waning mentation; check EEG
- PT/OT/ST
- DHT to facilitate meds/feeding
Transverse colon mass:
- s/p open partial colectomy (portion of transverse colon), takedown of splenic flexure, and lysis of adhesions on 01/19/25
- CRS is primary and managing
Hyponatremia, mild, trend
DM2: a1c 8.6%, holding home Metformin, cont Lantus 4U HS, cont SSI/accu-checks
Essential HTN: cont Norvasc
h/o metastatic breast cancer: cont Letrozole
HLD: cont statin
DVT ppx: Lovenox
Code: DNR/DNI
Hospitalist service will continue to follow along.
Anticipated Discharge: > 48 hours
Subjective/Interval History
-
Date of Service: January 22, 2025
waxing/waxing mentation
EEG ordered by Neurology
Objective Data
-
Labs:
Laboratory Results
01/22/25
04:51
WBC 17.7 H
Hgb 10.6 L
Hct 30.5 L
Plt Count 273
Sodium 130 L
Potassium 4.1
Chloride 101
Carbon Dioxide 24
BUN 11
Creatinine 0.6
Glucose 142 H
Calcium 8.7
Vital Signs:
Vital Signs
Temp Pulse Resp BP Pulse Ox
99.4 F 79 14 148/89 93
01/22/25 15:38 01/22/25 16:15 01/22/25 16:15 01/22/25 16:10 01/22/25 16:15
I&O
01/21/25 01/22/25 01/23/25
05:59 06:59 06:59
Intake Total 600 / 600 930 / 930
Output Total 875 / 875 1675 / 1675
Balance -275 / -275 -745 / -745
Physical Exam
-
General: No Apparent Distress
HEENT: Normocephalic and Atraumatic
Respiratory: Negative Wheezes
Cardiac: Regular Rhythm and S1/S2
Neuro: Awake and Other (arousable to tactile stimuli)
Psych: Calm
Data Reviewed
-
Total Time Spent with Patient (in minutes): 41
Labs: Labs Reviewed by me
--- NOTE | 2025-01-22 16:47 | W.PN.UPDATE ---
Update Note
Progress Note Update
Patient evaluated at the bedside by me earlier this afternoon. She was lying on her left side and was able to open her left eye. She appeared to recognize me. She was able to slowly verbalize her own name, the name of the hospital, and the year.
Results of head CTs and MRI noted. I relayed to the patient that she had a stroke. I later communicated with both Dr. Mcguire and Dr. Costa about her circumstance. She is on trans anal aspirin. They wish to consider a Keofeed tube for Plavix as
well as nutrition. I had a [id number] conversation initially with the patient's power of dry cell tester, Srikanth, in the hallway, and later with Srikanth and a number of children and grandchildren in the IMU waiting area. I updated them in detail. I told
them the situation was in flux. They appreciated the information. I asked them about whether they are okay with a feeding tube for the reasons mentioned. They are contemplating this. I anticipate it will be placed tomorrow presuming they agree.
[2025-01-22] MEDS: LIPITOR PO (17:20)
[2025-01-22 17:54] LABS: Glucose - Point of Care 163 mg/dl (70-99)
--- NOTE | 2025-01-22 18:03 | CM ---
Patient is post-op care per colorectal primary and has recommended DHT tube to facilitate intake/meds. Patient doing poorly and so the POA was called in to make some decisions. PT/OT still evaluating, but might be on hold for now. PLAN: TBD,
Anticipate Home vs SNF.
[2025-01-22] MEDS: LOVENOX 40 MG SC (18:06)
--- NOTE | 2025-01-22 20:16 | PTCARENOTE ---
Received pt at change of shift. Assessed NIHSS with rachel DUBON. Pt has been in and out of current state. NIHSS currently an 18. DATA COMMUNICATIONS ANALYST notified. NIHSS has been up and down all day and neurology aware. Family at pt bedside. Pt only arousable to
pain; does not know where she is and keeps saying 'sorry'. Back to sleep shortly after oral care. Call sharma within reach.
--- NOTE | 2025-01-22 21:27 | EEG.RPT ---
Electroencephalogram Report
Recording
Date of EE01/22/25
Type of EEG: Routine
Length of EEG recordin minutes
Done with Video Recording: Yes
Patient Status: Inpatient
Recording Conditions: Awake and Drowsy
Hyperventilation Performed: No
Photic Stimulation Performed: Yes
Report
LESS THAN 1 HOUR EEG REPORT
LESS THAN 1 HOUR EEG INTERPRETATION:
Mildly to moderately abnormal study for age based on low amplitude even for age, generalized slowing demonstrated bihemispherically equally
CLINICAL CORRELATION:
Although normative values not been established for a person of this advanced age the patient�s symmetry of the background suggests that this study was suggestive of mild to moderate bihemispheric cortical dysfunction. No epileptiform features were
demonstrated.
If concerns remain regarding epilepsy, prolonged monitoring may be of assistance.
Clinical correlation is advised.
METHODS:
A 21-channel digital electroencephalogram (EEG) was performed at the bedside. The 10/20 international system of electrode placement was used with ECG and lateral/vertical eye movements recorded. The [employer] quantitative EEG analysis system was
performed
IMPRESSION(S):
Quality of study
Fair
Background
Low amplitude
Anterior-posterior voltage gradient differentiation: Fair
Delta frequency maximal background demonstrated
Sleep
Drowsiness present
Hyperventilation
Not performed
Photic Stimulation
Failed to activate the record
ECG
Normal rhythm
Abnormal Activity
None
[2025-01-22] MEDS: LANTUS 0.04 UNITS SC (23:20)
[2025-01-22 23:23] LABS: Glucose - Point of Care 144 mg/dl (70-99)
[2025-01-23] VITALS (15 sets, daily range): BP systolic 134–185; BP diastolic 58–133; PULSE 77–84; O2SAT 96–98; BMI 29.0
[2025-01-23] MEDS: NSS 1000 IV ×2 (01:44→15:41)
[2025-01-23 05:24] LABS: Hematocrit 32.0 % (37.0-47.0); Hemoglobin 11.2 g/dL (12.0-16.0); Mean Corp Hgb Conc. 35.0 g/dL (33.0-37.0); Mean Corpuscular Volume 83.8 fL (81.0-99.0); Platelet Count 273 10^3/uL (130-400); Red Cell Dist. Width 12.5 % (11.5-14.5)
[2025-01-23 05:25] LABS: Glucose - Point of Care 128 mg/dl (70-99)
[2025-01-23] MEDS: NOVOLOG FLEXPEN-LOW RESISTANCE SC ×2 (05:43→12:04)
--- NOTE | 2025-01-23 05:46 | PTCARENOTE ---
Pt 04:00 NIHSS assessment is a 4; previous assessments this shift were 18 and 14. Pt is AAOx3. No facial droop, aphasia or dysarthria. Confirmed with pt who her POA is and who is to make all decisions; pt states Srikanth Knott is her POA and her
children are not to make any decisions regarding her care. Pt states she does 'not want a feeding tube.' Pt confirmed she is aware that if she can not eat/drink on her own, that without the feeding tube, she will not be able to sustain.
[2025-01-23 05:50] LABS: Blood Urea Nitrogen 11 mg/dl (7-17); Calcium 8.4 mg/dl (8.4-10.2); Carbon Dioxide 19 mmol/L (22-30); Chloride 103 mmol/L (98-107); Estimated Creatinine Clearance 66 ml/min; Glucose 129 mg/dl (70-99); Potassium 4.1 mmol/L (3.5-5.1); Sodium 131 mmol/L (135-145); eGFR > 60.00
[2025-01-23] MEDS: FEMARA PO (08:41)
--- NOTE | 2025-01-23 10:08 | PTCARENOTE ---
Assumed care of patient at beginning of this shift from previous RN; unable to verify accuracy of vital signs prior to 0700. Patient awake, alert and able to answer place, month and year. ST worked with patient; recommended soft and bite sized, she
stated she notified Dr Kulkarni. Patient worked with PT/OT and OOB to chair with chair alarm. Ox3 but confused conversation. Family currently at bedside.
--- NOTE | 2025-01-23 10:12 | W.PN.HOSP.TC ---
Today's Communication/Plan
-
await new PT/OT/ST evals now that mentation improved
hold off DHT for now; patient declined
follow primary CRS and neuro recs
Assessment / Plan
Assessment / Plan
CXR 01/09: No acute cardiopulmonary process.
Colonoscopy 01/18:
- Preparation of the colon was fair.
- Diverticulosis in the descending colon and in the sigmoid colon.
- Stool in the entire examined colon.
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
colon. Tattooed.
- No specimens collected.
CT brain: There is a hypodensity within the inferior left cerebellar hemisphere for which a subacute infarction is possible. No evidence of acute intracranial hemorrhage.
CTA Head: No large vessel occlusion. There is mild stenosis within the bilateral supraclinoid ICAs as well as the bilateral M1 segments of the middle cerebral arteries. There is focal high-grade stenosis within the A3 segment of the left anterior
cerebral artery.
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
Assessment:
Acute CVA
- MRI: inferior left cerebellar hemisphere 3 x 2.8 x 2.cm acute to subacute infarct. Also 3 mm focus of restricted diffusion in the white matter posterior to the atria of the right lateral ventricle, near the parieto-occipital junction
- Echo: pending
- Neuro following. previously not a TNK candidate due to major surgery
- continue rectal ASA. transition to oral ASA/Plavix if clears speech
- EEG: No epileptiform features were demonstrated
- PT/OT/ST evals pending
- DHT to facilitate meds/feeding if fails ST; at present patient declines
Transverse colon mass:
- s/p open partial colectomy (portion of transverse colon), takedown of splenic flexure, and lysis of adhesions on 01/19/25
- CRS is primary and managing
Hyponatremia, mild, trend
DM2: a1c 8.6%, holding home Metformin, cont Lantus 4U HS, cont SSI/accu-checks
Essential HTN: cont Norvasc
h/o metastatic breast cancer: cont Letrozole
HLD: cont statin
DVT ppx: Lovenox
Code: DNR/DNI
Hospitalist service will continue to follow along.
Anticipated Discharge: > 48 hours
Subjective/Interval History
-
Date of Service: January 23, 2025
patient more alert today
has declined feeding tube; wants to be evaluated by therapy teams
denies any abd pain
Objective Data
-
Labs:
Laboratory Results
01/23/25
05:14
WBC 15.2 H
Hgb 11.2 L
Hct 32.0 L
Plt Count 273
Sodium 131 L
Potassium 4.1
Chloride 103
Carbon Dioxide 19 L
BUN 11
Creatinine 0.5 L
Glucose 129 H
Calcium 8.4
Vital Signs:
Vital Signs
Temp Pulse Resp BP Pulse Ox
98.9 F 82 13 134/97 97
01/23/25 07:38 01/23/25 09:45 01/23/25 09:45 01/23/25 09:21 01/23/25 09:45
I&O
01/22/25 01/23/25 01/24/25
06:59 06:59 06:59
Intake Total 930 / 930 900 / 900
Output Total 1675 / 1675 1450 / 1450
Balance -745 / -745 -550 / -550
Physical Exam
-
General: No Apparent Distress
HEENT: Normocephalic and Atraumatic
Respiratory: Negative Wheezes
Cardiac: Regular Rhythm and S1/S2
GI: Soft and Nontender
Genito-urinary: No Costovertebral Tender
Neuro: AO x 3
Psych: Calm
Data Reviewed
-
Total Time Spent with Patient (in minutes): 41
Labs: Labs Reviewed by me
[2025-01-23 11:19] LABS: Glucose - Point of Care 138 mg/dl (70-99)
[2025-01-23] MEDS: ASPIRIN RECTAL (11:33)
--- NOTE | 2025-01-23 11:48 | PTOTSP ---
Speech Therapy Evaluation:
Given Brain MRI + for acute to subacute infarct, pt following commands, and able to functionally communicate, cognitive skills were assessed via MOCA version 7.3. Pt earned an overall score of 7/30 on the MOCA (normal 26/30), indicative of severe
cognitive deficits. Pt earned reductions in executive functioning, naming, memory, attention, language, abstraction, and orientation. Pt was observed to often tell BOOK PUBLISHER 'that's funny' after explaining directions for each task. Pt also noted to answer
'I don't know.' Pt denied any changes in cognition, however suspect worsening in baseline function. Question if severity of score related to acute confusion, CVA, or underlying language deficits. Pt would benefit from ongoing BOOK PUBLISHER services at acute
care level for further assessment/tx.
--- NOTE | 2025-01-23 12:47 | W.PN.CRS1 ---
Addendum entered and electronically signed by Singh Kulkarni MD 01/23/25 16:53:
Updated patient's next of kin, Srikanth, via phone conversation.
Original Note:
Today's Communication / Plan
-
dysphagia diet
okay for asa/plavix
improved today neurologically, mild exp aphasia
Assessment/Plan
-
84 yo female with h/o DM, breast ca with transverse colon mass now
POD #3 1) open partial colectomy (portion of transverse colon) 2) takedown of splenic fluxure 3) lysis of adhesions
AFVSS
neuro status change last night - CT with left posterior cerebellar stroke
01/22- MRI performed this AM: inferior left cerebellar hemisphere, there are several patchy regions of restricted diffusion, which in conglomerate measure approximately 3 cm AP by 2.8 cm transverse by 2 cm craniocaudal, 3 mm focus of restricted
diffusion in the white matter posterior to the atria of the right lateral ventricle, near the parieto-occipital junction, also compatible with a small focus of acute to subacute infarction.
Plan:
-Medical management as per hospitalist
-Speech path cleared for dysphagia diet. Will start soft bites and thins.
-Okay for oral ASA/Plavix
-Appreciate hospitalist/neurology
-Await OR path
-Analgesics with tylenol IV and PRN Dilaudid.
-IVF until tolerating po
-OOB/Ambulate. PT/OT following
-SCDs and Lovenox for VTE ppx
Subjective Data
Procedure
01/19/25 1) open partial colectomy (portion of transverse colon) 2) takedown of splenic flexure 3) lysis of adhesions
Subjective Data
Date of Service: January 23, 2025
Patient is more awake today. She is able to answer her name and where she is. Denies pain. She is not that hungry.
Objective Data
-
Vital Signs
Temp Pulse Resp BP Pulse Ox
97.5 F 82 13 134/97 97
01/23/25 11:16 01/23/25 09:45 01/23/25 09:45 01/23/25 09:21 01/23/25 09:45
Intake & Output
01/22/25 01/23/25 01/24/25
06:59 06:59 06:59
Intake Total 930 / 930 900 / 900
Output Total 1675 / 1675 1450 / 1450
Balance -745 / -745 -550 / -550
Intake:
Oral fluids 30 / 30
IV fluids (Total) 900 / 900 900 / 900
Output:
Urine, Lee 1450 / 1450
Urine, Voided 850 / 850
Straight cath output 825 / 825
Other:
How many times incontinent 1
SMALL amount urine
Number of unmeasured liquid
stools
Rectum 2
Lab Results
01/23/25 05:14
01/23/25 05:14
Physical Exam
-
General: No Acute Distress and AOx3 (person and place, confused on year ([birth year]24) but corrected herself after prompting, some exp aphasia)
Abdomen: Soft, Non Distended and Non Tender
Neurological: No Motor Deficits and Other (no droop/drift)
Skin: Warm and Dry
Incision: Clear, Dry, Intact
[2025-01-23] MEDS: LOW STRENGTH ASPIRIN 81 MG PO (12:59)
[2025-01-23] MEDS: PLAVIX 75 MG PO (12:59)
--- NOTE | 2025-01-23 13:07 | PTCARENOTE ---
Addendum entered by Aixa Shearer RN 01/23/25 13:15:
BP 154/74, accu check 138.
Original Note:
Patient assisted back to bed x2 person assist. Patient very drowsy and needed much cuing. NIHSS =10; prior NIHSS =5. Son in room and stated patient is more talkative. She was able to tell me where she is, the year, the month and her age. She was
able to follow commands and recite words and sentences from the Stroke Scale. TT sent to Dr Costa to make him aware; also added Dr Mcguire and Dr Kulkarni to the text. Instructed to monitor for now by Dr Costa.
Patient now more awake and talking with daughter, although remains with some confused conversation. Daughter states she is much more awake today.
--- NOTE | 2025-01-23 16:52 | CM ---
Per updated patient eating today, physical therapy are recommending acute rehab, will need PM&R, PT/OT to obtain Auth.
Plan; Acute rehab.
[2025-01-23] MEDS: LIPITOR 40 MG PO (17:51)
[2025-01-23] MEDS: LOVENOX 40 MG SC (17:51)
[2025-01-23 17:57] LABS: Glucose - Point of Care 172 mg/dl (70-99)
[2025-01-23] MEDS: NOVOLOG FLEXPEN-LOW RESISTANCE 1 UNITS SC (18:02)
[2025-01-23 21:35] LABS: Glucose - Point of Care 171 mg/dl (70-99)
[2025-01-23] MEDS: LANTUS 0.04 UNITS SC (22:23)
[2025-01-24] VITALS (10 sets, daily range): BP systolic 118–178; BP diastolic 64–138; PULSE 88; BMI 29.6
[2025-01-24 04:27] LABS: Hematocrit 29.1 % (37.0-47.0); Hemoglobin 10.2 g/dL (12.0-16.0); Mean Corp Hgb Conc. 35.1 g/dL (33.0-37.0); Mean Corpuscular Volume 84.8 fL (81.0-99.0); Platelet Count 306 10^3/uL (130-400); Red Cell Dist. Width 12.3 % (11.5-14.5)
--- NOTE | 2025-01-24 04:30 | PTCARENOTE ---
patient aaox3. [facility] currently at 8. NSR on monitor. Ra spo2 96%. meyer still in place and meyer care completed. 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 Many family members at bedside
all of evening. assessment and vital signs as charted. call sharma in reach.
[2025-01-24 04:52] LABS: Blood Urea Nitrogen 13 mg/dl (7-17); Calcium 8.4 mg/dl (8.4-10.2); Carbon Dioxide 24 mmol/L (22-30); Chloride 101 mmol/L (98-107); Estimated Creatinine Clearance 66 ml/min; Glucose 147 mg/dl (70-99); Potassium 3.6 mmol/L (3.5-5.1); Sodium 127 mmol/L (135-145); eGFR > 60.00
[2025-01-24] MEDS: APRESOLINE 5 MG IV (06:26)
[2025-01-24 08:07] LABS: Glucose - Point of Care 168 mg/dl (70-99)
--- NOTE | 2025-01-24 09:37 | W.PN.CRS1 ---
Today's Communication / Plan
-
neuro exam improving
maintain diet
rehab eval
Assessment/Plan
-
84 yo female with h/o DM, breast ca with transverse colon mass now
POD #4 1) open partial colectomy (portion of transverse colon) 2) takedown of splenic fluxure 3) lysis of adhesions
AFVSS
neuro status change 01/21 - CT with left posterior cerebellar stroke
01/22- MRI performed inferior left cerebellar hemisphere, there are several patchy regions of restricted diffusion, which in conglomerate measure approximately 3 cm AP by 2.8 cm transverse by 2 cm craniocaudal, 3 mm focus of restricted diffusion in
the white matter posterior to the atria of the right lateral ventricle, near the parieto-occipital junction, also compatible with a small focus of acute to subacute infarction.
Plan:
-Medical management as per hospitalist
-Speech path cleared for dysphagia diet. Continue on soft bite diet.
-Okay for oral ASA/Plavix
-Appreciate hospitalist/neurology
-Await OR path
-Analgesics with tylenol IV and PRN Dilaudid.
-IVF until tolerating po
-OOB/Ambulate. PT/OT following
-SCDs and Lovenox for VTE ppx
-[place] [facility] rehab eval today
-Daily wound dressing changes and PRN
-meyer in place due to urinary rentention a few days ago
Subjective Data
Procedure
01/19/25 1) open partial colectomy (portion of transverse colon) 2) takedown of splenic flexure 3) lysis of adhesions
Subjective Data
Date of Service: January 24, 2025
Patient states she had some nausea this morning. She has mild abdominal pain. She has some flatus. She has not noted any bowel movements. Her aphasia has greatly improved and she has no trouble communicating this morning. According to nursing
records, she had a liquid stool 3 days ago.
Objective Data
-
Vital Signs
Temp Pulse Resp BP Pulse Ox
99.3 F 79 16 176/67 95
01/24/25 03:00 01/24/25 08:00 01/24/25 08:00 01/24/25 06:57 01/24/25 08:00
Intake & Output
01/23/25 01/24/25 01/25/25
06:59 06:59 06:59
Intake Total 900 / 900
Output Total 1450 / 1450 650 / 650
Balance -550 / -550 -650 / -650
Intake:
IV fluids (Total) 900 / 900
Output:
Urine, Meyer 1450 / 1450 650 / 650
Lab Results
01/24/25 04:18
01/24/25 04:18
Physical Exam
-
General: No Acute Distress and AOx3
Abdomen: Soft, Non Distended and Non Tender
Skin: Warm and Dry
Incision: Clear, Dry, Intact
[2025-01-24] MEDS: FEMARA 2.5 MG PO (09:47)
[2025-01-24] MEDS: PLAVIX 75 MG PO (09:47)
[2025-01-24] MEDS: NORVASC 2.5 MG PO ×2 (09:48→20:10)
[2025-01-24] MEDS: LOW STRENGTH ASPIRIN 81 MG PO (09:48)
[2025-01-24] MEDS: NOVOLOG FLEXPEN-LOW RESISTANCE 1 UNITS SC (10:35)
[2025-01-24 12:44] LABS: Glucose - Point of Care 202 mg/dl (70-99)
--- NOTE | 2025-01-24 13:32 | W.PN.HOSP.TC ---
Today's Communication/Plan
-
continue DAPT
rehab evaluation/PMR consulted
follow surgical recs
Assessment / Plan
Assessment / Plan
CXR 01/09: No acute cardiopulmonary process.
Colonoscopy 01/18:
- Preparation of the colon was fair.
- Diverticulosis in the descending colon and in the sigmoid colon.
- Stool in the entire examined colon.
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
colon. Tattooed.
- No specimens collected.
CT brain: There is a hypodensity within the inferior left cerebellar hemisphere for which a subacute infarction is possible. No evidence of acute intracranial hemorrhage.
CTA Head: No large vessel occlusion. There is mild stenosis within the bilateral supraclinoid ICAs as well as the bilateral M1 segments of the middle cerebral arteries. There is focal high-grade stenosis within the A3 segment of the left anterior
cerebral artery.
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
Assessment:
Acute CVA
- MRI: inferior left cerebellar hemisphere 3 x 2.8 x 2.cm acute to subacute infarct. Also 3 mm focus of restricted diffusion in the white matter posterior to the atria of the right lateral ventricle, near the parieto-occipital junction
- Echo: no evidence of clot
- Neuro following. previously not a TNK candidate due to major surgery
- continue ASA/Plavix x 3 weeks, then ASA daily.
- EEG: No epileptiform features were demonstrated
- PT/OT/ST evals appreciated; PMR eval for acute rehab placement
Transverse colon mass:
- s/p open partial colectomy (portion of transverse colon), takedown of splenic flexure, and lysis of adhesions on 01/19/25
- CRS is primary and managing
Hyponatremia, mild, trend
DM2: a1c 8.6%, holding home Metformin, cont Lantus 4U HS, cont SSI/accu-checks
Essential HTN: cont Norvasc
h/o metastatic breast cancer: cont Letrozole
HLD: cont statin
DVT ppx: Lovenox
Code: DNR/DNI
Hospitalist service will continue to follow along.
Anticipated Discharge: > 48 hours
Subjective/Interval History
-
Date of Service: January 24, 2025
more alert, sitting in chair
denies complaints
agreeable to acute rehab
Objective Data
-
Labs:
Laboratory Results
01/24/25
04:18
WBC 13.2 H
Hgb 10.2 L
Hct 29.1 L
Plt Count 306
Sodium 127 L
Potassium 3.6
Chloride 101
Carbon Dioxide 24
BUN 13
Creatinine 0.5 L
Glucose 147 H
Calcium 8.4
Vital Signs:
Vital Signs
Temp Pulse Resp BP Pulse Ox
99.3 F 81 17 118/77 95
01/24/25 03:00 01/24/25 10:00 01/24/25 10:00 01/24/25 09:43 01/24/25 10:00
I&O
01/23/25 01/24/25 01/25/25
06:59 06:59 06:59
Intake Total 900 / 900
Output Total 1450 / 1450 650 / 650
Balance -550 / -550 -650 / -650
Physical Exam
-
General: No Apparent Distress
HEENT: Normocephalic and Atraumatic
Respiratory: Negative Wheezes
Cardiac: Regular Rhythm and S1/S2
GI: Soft
Genito-urinary: No Costovertebral Tender
Neuro: AO x 3
Psych: Calm
Data Reviewed
-
Total Time Spent with Patient (in minutes): 42
Labs: Labs Reviewed by me
--- NOTE | 2025-01-24 14:23 | CM ---
supply chain logistics manager continues to follow with patient progress and plan is for acute rehab, options reviewed and patient and Srikanth DEVINE have selected [facility], referral sent to [facility] in [facility], waiting on PM&R evaluation and
recommendations.
Plan; Acute rehab [facility].
[2025-01-24] MEDS: NOVOLOG FLEXPEN-LOW RESISTANCE 2 UNITS SC ×2 (14:25→17:34)
[2025-01-24 16:58] LABS: Glucose - Point of Care 223 mg/dl (70-99)
--- NOTE | 2025-01-24 17:07 | PTCARENOTE ---
Appetite poor, unable to get any protein in her - prefers liquids at this time. NO stools or flatus bs quiet. Zofran given this am x1. Midline incision dressing placed-carol intact, small amt serous drainage noted. Denies pain- no prn given.
OOB 1 asst w walker in chair x5 hours. NIHss 4 this shift, neuro checks unchanged. Rosa removed Dtv by 2229.
[2025-01-24] MEDS: LOVENOX 40 MG SC (17:33)
[2025-01-24] MEDS: LIPITOR 40 MG PO (17:33)
--- NOTE | 2025-01-24 20:28 | PTCARENOTE ---
Received patient around 1800 via stretcher in stable condition. Patient oriented to room. Call sharma in reach.
[2025-01-24 21:40] LABS: Glucose - Point of Care 164 mg/dl (70-99)
[2025-01-24] MEDS: LANTUS 0.04 UNITS SC (22:00)
[2025-01-25 05:53] VITALS: BMI 29.2
[2025-01-25 07:51] LABS: Glucose - Point of Care 209 mg/dl (70-99)
[2025-01-25 08:10] VITALS: BP 130/67
[2025-01-25 08:39] LABS: Hematocrit 31.7 % (37.0-47.0); Hemoglobin 11.0 g/dL (12.0-16.0); Mean Corp Hgb Conc. 34.7 g/dL (33.0-37.0); Mean Corpuscular Volume 85.9 fL (81.0-99.0); Platelet Count 371 10^3/uL (130-400); Red Cell Dist. Width 12.4 % (11.5-14.5)
[2025-01-25] MEDS: NOVOLOG FLEXPEN-LOW RESISTANCE 2 UNITS SC ×3 (08:45→18:09)
--- NOTE | 2025-01-25 09:00 | CON.MD ---
Documented by User: Maddi Arenas PA-C 01/25/25 12:16
Consultation - Medical
-
Referring Provider:�
Chief Complaint:�
�
History of Present Illness:�84 yo female with PMH of (DM, breast ca with transverse colon mass s/p open partial colectomy (portion of transverse colon, takedown of splenic flexure,and lysis of adhesions on 01/19/[address] Singh Webster, On 01/20
stroke code called at 6:01PM for aphasia. Patient was not found to be a candidate for TNK due to recent major surgery.
CT head: There is a hypodensity within the inferior left cerebellar hemisphere for which a subacute infarction is possible. No evidence of acute intracranial hemorrhage.
CTA Head: No large vessel occlusion. There is mild stenosis within the bilateral supraclinoid ICAs as well as the bilateral M1 segments of the middle cerebral arteries. There is focal high-grade stenosis within the A3 segment of the left anterior
cerebral artery.
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
The plan is to keep her on stroke pathway and get an echocardiogram. Patient will be on aspirin 300 mg given rectally. Will also keep the patient on atorvastatin 40 mg daily when the patient is able to take medicines orally.
MRI of brain: Regions of abnormal restricted diffusion within the inferior left cerebellar hemisphere, compatible with acute to subacute infarction. 3 mm focus of restricted diffusion in the white matter posterior to the atria of the right lateral
ventricle, near the parieto-occipital junction, also compatible with a small focus of acute to subacute infarction.
Patient with waxing and weaning mental status, neurology recommending EEG. ASA/Plavix x 3 weeks, then ASA daily.
Echo: no evidence of clot. EEG: No epileptiform features were demonstrated.
Seen by speech for swallowing therapy, no issue with swallowing, tolerating po and recommended solid with thin.
Patient seen at bedside this morning. Complaining of poor appetite. Not eating or drinking much and reports nausea. Denies any choking or swallowing issues. Per nursing, last bowel movement was this morning but was small and hard. Patient does
not have any bowel regiment. She is also complaining of chronic pain in both legs with touch since polio from her childhood. She also reported to have had a stroke 10 years ago with no residual deficits. She denies chest pain, shortness of
breath, dizziness, lightheadedness, vomiting, dysuria, abdominal pain.
Per nursing, patient initially had a Lee that was removed. However, having difficulty voiding and with retention requiring straight cath. Lee will be placed again for an additional few days.
�
Past Medical History:�DM, breast ca, colon ca, Asthma, Pheochromocytoma
Procedure History:�partial left colectomy, Nephrectomy
Family History:�Dad�heart disease, leukemia, brother and sisters�both dad but unsure of health issues.
�
Social History:�
Functional Level Premorbidly:�Independent with all activities�
Functional Level Currently:�bed mobility-max assist, transfer- min assist, ambulation: took steps to the bed side chair with RW- min assist x 2 for safety and line management
�
Tobacco:�Denies�
Alcohol:�Denies�
Drug use:�Denies�
�
Lives with:�friend/landlord
24-hour assistance available:�
Number of floors:�1
# steps to enter:�1
# steps to second floor: o
Potential First floor set up:�yes
Driving:�no
Occupation:�retired
�
�
Allergies:�
Allergy/AdvReac Type Severity Reaction Status Date / Time
codeine Allergy Unknown Verified 01/10/23 19:07
latex Allergy Unknown Verified 01/10/23 19:07
pentazocine Allergy Pt does Verified 01/10/23 19:07
not know
if this is
an allergy
�
Review of Systems:�
Constitutional: (x) abNormal _fatigued
Eye: (x) Normal _
Ear/Nose/Throat: (x) Normal _
Respiratory: (x) Normal _
Cardiovascular: (x) Normal _
Gastrointestinal: (x) abNormal _left colectomy
Genitourinary: (x) abNormal _foley, urinary retention
Musculoskeletal: (x) Normal _
Integumentary: (x) Normal _
Neurologic: (x) abNormal _stroke, aphasia
Psychiatric: (x) abNormal _cognitive deficits
Endocrine: (x) Normal _
Hematologic/Lymphatic: (x) Normal _
Allergic/Immunologic: (x) Normal _
�
Medications:�
Active Current Visit Medication List
Category Date Time Status
Amlodipine [Norvasc] Med 01/17/25 20:00 Active
2.5 mg PO BID
Aspirin Chewable [Low Strength Aspirin] Med 01/23/25 11:00 Active
81 mg PO DAILY
Atorvastatin [Lipitor] Med 01/20/25 19:33 Active
40 mg PO QPM
Clopidogrel Bisulfate [Plavix] Med 01/23/25 11:00 Active
75 mg PO DAILY
Enoxaparin Sodium [Lovenox] Med 01/20/25 18:00 Active
40 mg SC QPM
Flush (0.9% Sodium Chloride) [Flush (Nss)] Med 01/17/25 18:00 Active
See Dose Instructions IV PER PROTOCOL
HYDROmorphone [Dilaudid] Med 01/17/25 17:17 Active
0.25 mg IV Q4HPRN PRN
HYDROmorphone [Dilaudid] Med 01/17/25 17:17 Active
0.5 mg IV Q4HPRN PRN
Insulin Aspart Corrective Low [Novolog Flexpen-Low Med 01/23/25 16:30 Active
Resistance]
See Protocol SC AC
Insulin Glargine Lantus [Lantus] 4 units Med 01/20/25 22:00 Active
Subcutaneous Insulin Syringe [Syringe-Insulin] 0 unit
SC HS
Johwsxgmw-Nei-Zhnt [Femara] Med 01/18/25 08:00 Active
2.5 mg PO DAILY
Ondansetron Injectable [Zofran] Med 01/19/25 11:48 Active
4 mg IV Q6HPRN PRN
�
Vitals:�
Temp Pulse Resp BP Pulse Ox
97.7 F 84 18 130/67 97
01/25/25 08:10 01/25/25 08:10 01/25/25 08:10 01/25/25 08:10 01/25/25 08:10
Height 5 ft 3 in
Actual Weight 74.843 kg
Body Mass Index (BMI) 29.2
�
Physical Exam:�
General Appearance/Observation: Well-developed, well-nourished individual in no apparent distress.�
Pain/Comfort Assessment: none reported
Mood/Affect: Appropriate�
�
Integumentary/Operative Site:�abdomen with dressing
�� Pressure Ulcer Evaluation: absent over heels.�
��
�� Other Type of Wound: large ecchymosis- hands, arms
��
�
Eyes: Conjunctiva/Lids: normal���� Pupils: pupils equal round and reactive to light and Accommodation�
Ears/Nose/Throat: oral mucosa moist,� throat clear.������������ Lips/Teeth/Gums: normal�
Neck: No muscle spasm or tenderness�
Cardiovascular: Heart: regular, no murmur�
Pulses: dorsalis pedis 2+ bilaterally�
Respiratory: Respiratory Effort/Chest Expansion: normal������� Auscultation: Clear to auscultation bilaterally�
Gastrointestinal: abdomen not tender, no distension, normal abdominal bowel sounds
Genitourinary: n Lee�
Extremities:�Edema: None, b/l large legs�Cyanosis: None�Trophic�changes: None
�
Neurology Exam:
Orientation: Alert, Oriented to self, Time, Place�
Memory: impaired, distracted. Recognized family members, but could not recall name of her son and granddaughter who walked in the room
Comprehension: slow,
Two step command: impaired, needs redirecting, repeating
Naming: Intact
Cranial Nerves:
�� CNII:�Pupillary light reflex: Intact����Visual Field: Intact
�� CN III, IV, : Extraocular muscles: Intact�
�� CN V:�Facial Sensation�at�Forehead: Intact,�Maxilla: Intact,�Mandible: Intact
�� CN VII:�Facial movement: Mild left asymmetry
�� CN VIII:�Hearing: Normal
�� CN IX/X:�Speech & swallow: Normal,�Position of Uvula: Midline
�� CN XI:�Shoulder shrug: Symmetric
�� CN XII:�Tongue protrusion: Midline
Sensory:
�� Light touch: Intact in bilateral upper and bilateral thighs. Hyperalgesia bilateral lower extremities and feet
��
�
Reflexes:
�� Biceps: 2+ bilaterally
�� Brachioradialis: 2+ bilaterally
�� Triceps: 2+ bilaterally
�� Patellar: 2+ bilaterally
�� Achilles: absent bilaterally
�� Babinski: Down going bilaterally
�� Clonus: None
�� Lalo: Negative bilaterally�
Cerebellar: Dysmetria/Ataxia: None�
Musculoskeletal:
Motor: (Manual muscle scale 0-5)�
Muscle SA EF WE EE FF FA HF KE DF EHL PF
Right� 5 5 4 5 4 4 4 4 4 5 5
Left 4 4 4 4 4 4 4 4 4 5 5
�
Tone: Normal in all extremities�
Range of Motion: Passively within normal limits in all extremities, limited exam of legs due to hyperalgesia to
�
Lab Results:
Labs
WBC 15.5 10^3/uL (4.8-10.8) H 01/25/25 07:44
RBC 3.69 10^6/uL (4.20-5.40) L 01/25/25 07:44
Hgb 11.0 g/dL (12.0-16.0) L 01/25/25 07:44
Hct 31.7 % (37.0-47.0) L 01/25/25 07:44
MCV 85.9 fL (81.0-99.0) 01/25/25 07:44
MCH 29.8 pg (27.0-31.0) 01/25/25 07:44
MCHC 34.7 g/dL (33.0-37.0) 01/25/25 07:44
RDW 12.4 % (11.5-14.5) 01/25/25 07:44
Plt Count 371 10^3/uL (130-400) D 01/25/25 07:44
MPV 9.1 fL (7.4-10.4) 01/25/25 07:44
Abs Immat Gran (auto) 0.1 10^3/uL (0-0.05) H 01/20/25 07:33
Absolute Neuts (auto) 19.0 10^3/uL (1.4-6.5) H 01/20/25 07:33
Absolute Lymphs (auto) 0.3 10^3/uL (1.2-3.4) L 01/20/25 07:33
Absolute Monos (auto) 1.6 10^3/uL (0.1-0.6) H 01/20/25 07:33
Absolute Eos (auto) 0.0 10^3/uL (0-0.7) 01/20/25 07:33
Absolute Basos (auto) 0.1 10^3/uL (0-0.2) 01/20/25 07:33
CBC Comment Not Reportable 01/21/25 23:00
Immature Gran % 0.5 % (0-0.5) 01/20/25 07:33
Neutrophils % 90.4 % (42.2-75.2) H 01/20/25 07:33
Lymphocytes % 1.4 % (20.5-51.1) L 01/20/25 07:33
Monocytes % 7.5 % (1.7-9.3) 01/20/25 07:33
Eosinophils % 0.0 % (0-6) 01/20/25 07:33
Basophils % 0.2 % (0-2) 01/20/25 07:33
Nucleated RBC % 0 % 01/20/25 07:33
PT 15.0 Sec (11.4-14.6) H 01/20/25 18:05
INR 1.15 01/20/25 18:05
APTT 37.9 Sec (23.4-35.0) H 01/20/25 18:05
Sodium 129 mmol/L (135-145) L 01/25/25 07:44
Potassium 3.2 mmol/L (3.5-5.1) L 01/25/25 07:44
Chloride 100 mmol/L (98-107) 01/25/25 07:44
Carbon Dioxide 27 mmol/L (22-30) 01/25/25 07:44
BUN 10 mg/dl (7-17) 01/25/25 07:44
Creatinine 0.6 mg/dL (0.6-1.0) 01/25/25 07:44
Estimated Creat Clear 66 ml/min 01/25/25 07:44
eGFR > 60.00 01/25/25 07:44
Glucose 188 mg/dl (70-99) H 01/25/25 07:44
Lactic Acid 0.9 mmol/L (0.7-2.0) 01/22/25 04:51
Calcium 9.0 mg/dl (8.4-10.2) 01/25/25 07:44
Magnesium 1.8 mg/dl (1.6-2.3) 01/22/25 01:03
Total Bilirubin 0.4 mg/dl (0.2-1.3) 01/20/25 18:05
AST 26 U/L (14-36) 01/20/25 18:05
ALT 21 U/L (0-35) 01/20/25 18:05
Alkaline Phosphatase 74 U/L (38-126) 01/20/25 18:05
Total Protein 5.7 g/dl (6.3-8.2) L 01/20/25 18:05
Albumin 3.1 g/dl (3.5-5.0) L 01/20/25 18:05
Triglycerides 93 mg/dl (10-149) 01/21/25 08:40
Total Cholesterol 86 mg/dl (50-199) 01/21/25 08:40
LDL Cholesterol, Calc 31 mg/dl 01/21/25 08:40
VLDL Cholesterol, Calc 18 mg/dl (0-30) 01/21/25 08:40
HDL Cholesterol 37 mg/dl 01/21/25 08:40
Urine Color Yellow 01/25/25 10:08
Urine Clarity Clear (Clear) 01/25/25 10:08
Urine pH 7.0 (5.0-9.0) 01/25/25 10:08
Ur Specific [place] 1.010 (<1.030) 01/25/25 10:08
Urine Ketones Negative (Negative) 01/25/25 10:08
Urine Occult Blood Negative (Negative) 01/25/25 10:08
Ur Occult Blood Reflex 1+ (Negative) A 01/22/25 12:16
Urine Nitrite Negative (Negative) 01/25/25 10:08
Urine Nitrite (Reflex) Negative (Negative) 01/22/25 12:16
Urine Bilirubin Negative (Negative) 01/25/25 10:08
Urine Urobilinogen Negative (Neg - 1+) 01/25/25 10:08
Ur Leukocyte Esterase Negative (Negative) 01/25/25 10:08
Leukocyte Esterase Rfl Negative (Negative) 01/22/25 12:16
Urine RBC 3-6 /HPF (0-2) A 01/22/25 12:16
Urine WBC (Reflex) 0-2 /HPF (0-5) 01/22/25 12:16
Ur Squamous Epith Cells 11-15 /LPF (Few) 01/22/25 12:16
Ur Urothelial Cells 11-15 /LPF (FEW) 01/22/25 12:16
Urine Bacteria (Reflex) Few (Negative) A 01/22/25 12:16
Hyaline Casts 0-2 /LPF (0-2) 01/22/25 12:16
Granular Casts 0-2 /LPF (0) 01/22/25 12:16
Urine Mucus Few 01/22/25 12:16
Urine Glucose 1+ (Negative) A 01/25/25 10:08
Urine Albumin 2+ (Neg - Trace) A 01/25/25 10:08
Urine Albumin (Reflex) 2+ (Neg - Trace) A 01/22/25 12:16
SARS-CoV-2 Antigen Negative (Negative) 01/22/25 00:52
POC Glucose 209 mg/dl (70-99) H 01/25/25 07:49
Blood Type O POS 01/18/25 06:53
Antibody Screen Negative (Negative) 01/18/25 06:53
�
Diagnostic Results:�as per HPI�
MRI of the brain is performed without contrast. There is significant motion artifact on several sequences, somewhat improved with utilization of fast imaging techniques.
In the inferior left cerebellar hemisphere, there are several patchy regions of restricted diffusion, which in conglomerate measure approximately 3 cm AP by 2.8 cm transverse by 2 cm craniocaudal. These correspond to regions of decreased density on
recent CT examinations, compatible with acute to subacute infarction.
Additionally, there is a 3 mm focus of restricted diffusion within the white matter posterior to the atria of the right lateral ventricle, near the parieto-occipital junction, seen on page 16 of diffusion-weighted images. This is compatible with a
small focus of acute to subacute infarction.
The T2 gradient echo images are severely limited. There is no gross evidence for acute intracranial hemorrhage.
There is no significant mass effect with no midline shift. The basilar cisterns are maintained.
Mild to moderate atrophy in this 84-year-old.
Mild to moderate T2 and FLAIR white matter hyperintensities, greatest involvement in the white matter lateral to the anterior body of the left lateral ventricle. These hyperintensities are commonly seen with aging and usually attributed to small
vessel ischemic disease.
The callosal angle appears normal, and findings are not considered highly suggestive of normal pressure hydrocephalus.
No evidence for Chiari malformation.
Moderate patchy mucosal thickening of the Mild peripheral mucosal thickening of the inferior left frontal sinus.
Mild peripheral mucosal thickening of the right sphenoid sinus. The maxillary sinuses appear clear.
The mastoid air cells appear clear.
IMPRESSION: Regions of abnormal restricted diffusion within the inferior left cerebellar hemisphere as described, compatible with acute to subacute infarction.
3 mm focus of restricted diffusion in the white matter posterior to the atria of the right lateral ventricle, near the parieto-occipital junction, also compatible with a small focus of acute to subacute infarction.
Significant motion artifact on this examination, which does limit resolution of several sequences. Motion artifact is greatest on the T2 gradient echo sequence, which limits evaluation for hemosiderin deposition.
�CXR 01/09: No acute cardiopulmonary process.
Colonoscopy 01/18:
- Preparation of the colon was fair.
- Diverticulosis in the descending colon and in the sigmoid colon.
- Stool in the entire examined colon.
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
colon. Tattooed.
- No specimens collected.
Assessment: 84 year old female with metastatic breast cancer with colon mass s/p partial left colectomy on 01/19 followed by aphasia and confusion. Found to have acute infarcts on imaging.
�
Plan�
PM&R�PT/OT to increase independence with ADLs, improve balance, coordination, endurance, strength, mobility, community reintegration, decreased burden of care on others and family education.�
Debility :S/p left colectomy: by Dr webster on 01/19.
CVA: Secondary prophylaxis with aspirin and Plavix for 21 days followed by Plavix lifelong, statin, and blood pressure control (SBP less than 180 and diastolic less than 100 to participate with therapy for ischemic stroke). Continue to monitor
neurologic status.�
right dominant hemiparesis: High risk for falls and sliding out of chair/bed. Safety reinforced.�
- Avoid using affected arm to help lift or pull patient as this will cause trauma to the shoulder.
Dysphagia: evaluated by speech, now tolerating solid and thin diet, cont aspiration precautions and tolerance of diet
Poor appetite: Recommend consulting dietary for calorie count. Adding supplemental drinks. T/C feeding tube if po intake not sustainable
Cognitive deficits:� speech evaluation
Dysarthria: speech evaluation�
HTN: Norvasc, monitor closely�
HLD: Statin�
Coronary artery disease�: Aspirin, statin, beta-brea�
DM2: Hba1c 8.6%, holding home Metformin, cont Lantus 4U HS, cont SSI/accu-checks
Metastatic breast cancer: cont Letrozole
Anemia: Postop and multifactorial.� Continue to monitor.
Hyponatremia: trend- 129
Leukocytosis: WBCs trending back up from 13.2-15.5 as of 01/25. To be addressed
Hypokalemia: 3.2 to be replenished
Psych: Psychology consult.� Monitor mood, adjust medications as needed.�
Skin: monitor for pressure sores/rashes/lesions.�
Pain: acetaminophen or oxycodone as needed.�
Bowel/constipation: Add Colace and Senna, PRN bisacodyl.�
Bladder/urinary retention: Time void, PVRs, PRN straight cath.�Lee removed then replaced as of 01/25.
GI Prophylaxis: Pantoprazole�
DVT Prophylaxis: mechanical and lovenox
Pulmonary: Incentive spirometry�
Safety: Continue to reinforce assistance with all transfers.�
Code Status:�DNR/DNI
Dispo�(date/plan/equipment needs): Home with family care.� Social history reviewed.�
�
Functional and Medical Goals:�Modified Independent with ADL�s, ambulation, transfers�
�
�
Discharge Destination:��acute inpatient when medically stable, able to consistently tolerate po food, pain controlled with po meds for at least 24 hours in order to tolerate intense 3 hours of therapy daily.
Leukocytosis: WBCs trending back up from 13.2-15.5 as of 01/25. reactive versus..
Bladder/urinary retention: Time void, PVRs, PRN straight cath.�Lee removed then replaced as of 01/25. Improved regular bowel movements may improve voiding issue
Bowel/constipation: Add Colace and Senna, PRN bisacodyl.�
�
Poor appetite: Recommend consulting dietary for calorie count. Adding supplemental protein drinks. Consider feed tube if po intake not sustainable.
�
Thank you for allowing me to care for your patient. Please contact me with any questions or concerns.
Consultation
-
Date/Time Consultation Requested: 01/24/2025
Date/Time Consultation Performed: 01/25/2025
Requesting Provider: Dr. Maynor Hill
Performing Provider: Maddi Arenas/Dr. Granda
Reason for Consultation: CVA, debility

Documented by User: Ken Granda MD 01/25/25 21:35
Consultation - Medical
-
Chief Complaint:�Stroke
�
History of Present Illness:�84 yo Right handed female with PMH of (DM, breast ca with transverse colon mass s/p open partial colectomy (portion of transverse colon, takedown of splenic flexure,and lysis of adhesions on 01/19/[address] Winters
Shad, On 01/20 stroke code called at 6:01PM for aphasia. Patient was not found to be a candidate for TNK due to recent major surgery.
CT head: There is a hypodensity within the inferior left cerebellar hemisphere for which a subacute infarction is possible. No evidence of acute intracranial hemorrhage.
CTA Head: No large vessel occlusion. There is mild stenosis within the bilateral supraclinoid ICAs as well as the bilateral M1 segments of the middle cerebral arteries. There is focal high-grade stenosis within the A3 segment of the left anterior
cerebral artery.
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
The plan is to keep her on stroke pathway and get an echocardiogram. Patient will be on aspirin 300 mg given rectally. Will also keep the patient on atorvastatin 40 mg daily when the patient is able to take medicines orally.
MRI of brain: Regions of abnormal restricted diffusion within the inferior left cerebellar hemisphere, compatible with acute to subacute infarction. 3 mm focus of restricted diffusion in the white matter posterior to the atria of the right lateral
ventricle, near the parieto-occipital junction, also compatible with a small focus of acute to subacute infarction.
Patient with waxing and weaning mental status, neurology recommending EEG. ASA/Plavix x 3 weeks, then ASA daily.
Echo: no evidence of clot. EEG: No epileptiform features were demonstrated.
Seen by speech for swallowing therapy, no issue with swallowing, tolerating po and recommended solid with thin.
Patient seen at bedside this morning. Complaining of poor appetite. Not eating or drinking much and reports nausea. Denies any choking or swallowing issues. Per nursing, last bowel movement was this morning but was small and hard. Patient does
not have any bowel regiment. She is also complaining of chronic pain in both legs with touch since polio from her childhood. She also reported to have had a stroke 10 years ago with no residual deficits. She denies chest pain, shortness of
breath, dizziness, lightheadedness, vomiting, dysuria, abdominal pain.
Per nursing, patient initially had a Lee that was removed. However, having difficulty voiding and with retention requiring straight cath. Lee will be placed again for an additional few days.
�
Past Medical History:�DM, breast ca, colon ca, Asthma, Pheochromocytoma, polio both legs?
Procedure History:�partial left colectomy, Nephrectomy
Family History:�Dad�heart disease, leukemia, brother and sisters�both dad but unsure of health issues.
�
Social History:�
Functional Level Premorbidly:�Independent with all activities�
Functional Level Currently:�bed mobility-max assist, transfer- min assist, ambulation: took steps to the bed side chair with RW- min assist x 2 for safety and line management
�
Tobacco:�Denies�
Alcohol:�Denies�
Drug use:�Denies�
�
Lives with:�friend/landlord
24-hour assistance available:�No
Number of floors:�1
# steps to enter:�1
Driving:�no
Occupation:�retired
�
�
Allergies:�
Allergy/AdvReac Type Severity Reaction Status Date / Time
codeine Allergy Unknown Verified 01/10/23 19:07
latex Allergy Unknown Verified 01/10/23 19:07
pentazocine Allergy Pt does Verified 01/10/23 19:07
not know
if this is
an allergy
�
Review of Systems:�
Constitutional: (x) abNormal _fatigued
Eye: (x) Normal _
Ear/Nose/Throat: (x) Normal _
Respiratory: (x) Normal _
Cardiovascular: (x) Normal _
Gastrointestinal: (x) abNormal _left colectomy
Genitourinary: (x) abNormal _foley, urinary retention
Musculoskeletal: (x) Normal _
Integumentary: (x) Normal _
Neurologic: (x) abNormal _stroke, aphasia
Psychiatric: (x) abNormal _cognitive deficits
Endocrine: (x) Normal _
Hematologic/Lymphatic: (x) Normal _
Allergic/Immunologic: (x) Normal _
�
Medications:�
Active Current Visit Medication List
Category Date Time Status
Amlodipine [Norvasc] Med 01/17/25 20:00 Active
2.5 mg PO BID
Aspirin Chewable [Low Strength Aspirin] Med 01/23/25 11:00 Active
81 mg PO DAILY
Atorvastatin [Lipitor] Med 01/20/25 19:33 Active
40 mg PO QPM
Clopidogrel Bisulfate [Plavix] Med 01/23/25 11:00 Active
75 mg PO DAILY
Enoxaparin Sodium [Lovenox] Med 01/20/25 18:00 Active
40 mg SC QPM
Flush (0.9% Sodium Chloride) [Flush (Nss)] Med 01/17/25 18:00 Active
See Dose Instructions IV PER PROTOCOL
HYDROmorphone [Dilaudid] Med 01/17/25 17:17 Active
0.25 mg IV Q4HPRN PRN
HYDROmorphone [Dilaudid] Med 01/17/25 17:17 Active
0.5 mg IV Q4HPRN PRN
Insulin Aspart Corrective Low [Novolog Flexpen-Low Med 01/23/25 16:30 Active
Resistance]
See Protocol SC AC
Insulin Glargine Lantus [Lantus] 4 units Med 01/20/25 22:00 Active
Subcutaneous Insulin Syringe [Syringe-Insulin] 0 unit
SC HS
Rweokwsgg-Zam-Ydhd [Femara] Med 01/18/25 08:00 Active
2.5 mg PO DAILY
Ondansetron Injectable [Zofran] Med 01/19/25 11:48 Active
4 mg IV Q6HPRN PRN
�
Vitals:�
Temp Pulse Resp BP Pulse Ox
97.7 F 84 18 130/67 97
01/25/25 08:10 01/25/25 08:10 01/25/25 08:10 01/25/25 08:10 01/25/25 08:10
Height 5 ft 3 in
Actual Weight 74.843 kg
Body Mass Index (BMI) 29.2
Physical Exam:�
General Appearance/Observation: Well-developed, well-nourished female in no apparent distress.�
Pain/Comfort Assessment: none reported
Mood/Affect: Appropriate�
�
Integumentary/Operative Site:�abdomen with dressing
�� Pressure Ulcer Evaluation: absent over heels.�
���� Other Type of Wound: large ecchymosis- hands, arms
��
�
Eyes: Conjunctiva/Lids: normal���� Pupils: pupils equal round and reactive to light and Accommodation�
Ears/Nose/Throat: oral mucosa moist,� throat clear.������������ Lips/Teeth/Gums: normal�
Neck: No muscle spasm or tenderness�
Cardiovascular: Heart: regular, no murmur�
Pulses: dorsalis pedis 2+ bilaterally�
Respiratory: Respiratory Effort/Chest Expansion: normal������� Auscultation: Clear to auscultation bilaterally�
Gastrointestinal: abdomen not tender, no distension, normal abdominal bowel sounds
Genitourinary: Lee�with yellow urine
Extremities:�Edema: None�Cyanosis: None�Trophic�changes: None
�
Neurology Exam:
Orientation: Alert, Oriented to self, Time, Place�
Memory: impaired, distracted. Recognized family members, but could not recall name of her son and granddaughter who walked in the room
Comprehension: slow,
Two step command: impaired, needs redirecting, repeating
Naming: Intact
Cranial Nerves:
�� CNII:�Pupillary light reflex: Intact����Visual Field: Intact
�� CN III, IV, : Extraocular muscles: Intact�
�� CN V:�Facial Sensation�at�Forehead: Intact,�Maxilla: Intact,�Mandible: Intact
�� CN VII:�Facial movement: Mild left asymmetry
�� CN VIII:�Hearing: Normal
�� CN IX/X:�Speech & swallow: Normal,�Position of Uvula: Midline
�� CN XI:�Shoulder shrug: Symmetric
�� CN XII:�Tongue protrusion: Midline
Sensory:
�� Light touch: Intact in bilateral upper and bilateral thighs. Hyperalgesia bilateral lower extremities and feet
�� �
Reflexes:
�� Biceps: 2+ bilaterally
�� Brachioradialis: 2+ bilaterally
�� Triceps: 2+ bilaterally
�� Patellar: 2+ bilaterally
�� Achilles: absent bilaterally
�� Babinski: Down going bilaterally
�� Clonus: None
�� Lalo: Negative bilaterally�
Cerebellar: Dysmetria/Ataxia: None�
Musculoskeletal: Motor: (Manual muscle scale 0-5)�
Muscle SA EF WE EE FF FA HF KE DF EHL PF
Right� 5 5 4 4+ 4 4 4 4 4 5 5
Left 4 4 4 4 4 4 4 4 4 5 5
�
Tone: Normal in all extremities�
Range of Motion: Passively within normal limits in all extremities, limited exam of legs due to hyperalgesia
�
Lab Results:
Labs
WBC 15.5 10^3/uL (4.8-10.8) H 01/25/25 07:44
RBC 3.69 10^6/uL (4.20-5.40) L 01/25/25 07:44
Hgb 11.0 g/dL (12.0-16.0) L 01/25/25 07:44
Hct 31.7 % (37.0-47.0) L 01/25/25 07:44
MCV 85.9 fL (81.0-99.0) 01/25/25 07:44
MCH 29.8 pg (27.0-31.0) 01/25/25 07:44
MCHC 34.7 g/dL (33.0-37.0) 01/25/25 07:44
RDW 12.4 % (11.5-14.5) 01/25/25 07:44
Plt Count 371 10^3/uL (130-400) D 01/25/25 07:44
MPV 9.1 fL (7.4-10.4) 01/25/25 07:44
Abs Immat Gran (auto) 0.1 10^3/uL (0-0.05) H 01/20/25 07:33
Absolute Neuts (auto) 19.0 10^3/uL (1.4-6.5) H 01/20/25 07:33
Absolute Lymphs (auto) 0.3 10^3/uL (1.2-3.4) L 01/20/25 07:33
Absolute Monos (auto) 1.6 10^3/uL (0.1-0.6) H 01/20/25 07:33
Absolute Eos (auto) 0.0 10^3/uL (0-0.7) 01/20/25 07:33
Absolute Basos (auto) 0.1 10^3/uL (0-0.2) 01/20/25 07:33
CBC Comment Not Reportable 01/21/25 23:00
Immature Gran % 0.5 % (0-0.5) 01/20/25 07:33
Neutrophils % 90.4 % (42.2-75.2) H 01/20/25 07:33
Lymphocytes % 1.4 % (20.5-51.1) L 01/20/25 07:33
Monocytes % 7.5 % (1.7-9.3) 01/20/25 07:33
Eosinophils % 0.0 % (0-6) 01/20/25 07:33
Basophils % 0.2 % (0-2) 01/20/25 07:33
Nucleated RBC % 0 % 01/20/25 07:33
PT 15.0 Sec (11.4-14.6) H 01/20/25 18:05
INR 1.15 01/20/25 18:05
APTT 37.9 Sec (23.4-35.0) H 01/20/25 18:05
Sodium 129 mmol/L (135-145) L 01/25/25 07:44
Potassium 3.2 mmol/L (3.5-5.1) L 01/25/25 07:44
Chloride 100 mmol/L (98-107) 01/25/25 07:44
Carbon Dioxide 27 mmol/L (22-30) 01/25/25 07:44
BUN 10 mg/dl (7-17) 01/25/25 07:44
Creatinine 0.6 mg/dL (0.6-1.0) 01/25/25 07:44
Estimated Creat Clear 66 ml/min 01/25/25 07:44
eGFR > 60.00 01/25/25 07:44
Glucose 188 mg/dl (70-99) H 01/25/25 07:44
Lactic Acid 0.9 mmol/L (0.7-2.0) 01/22/25 04:51
Calcium 9.0 mg/dl (8.4-10.2) 01/25/25 07:44
Magnesium 1.8 mg/dl (1.6-2.3) 01/22/25 01:03
Total Bilirubin 0.4 mg/dl (0.2-1.3) 01/20/25 18:05
AST 26 U/L (14-36) 01/20/25 18:05
ALT 21 U/L (0-35) 01/20/25 18:05
Alkaline Phosphatase 74 U/L (38-126) 01/20/25 18:05
Total Protein 5.7 g/dl (6.3-8.2) L 01/20/25 18:05
Albumin 3.1 g/dl (3.5-5.0) L 01/20/25 18:05
Triglycerides 93 mg/dl (10-149) 01/21/25 08:40
Total Cholesterol 86 mg/dl (50-199) 01/21/25 08:40
LDL Cholesterol, Calc 31 mg/dl 01/21/25 08:40
VLDL Cholesterol, Calc 18 mg/dl (0-30) 01/21/25 08:40
HDL Cholesterol 37 mg/dl 01/21/25 08:40
Urine Color Yellow 01/25/25 10:08
Urine Clarity Clear (Clear) 01/25/25 10:08
Urine pH 7.0 (5.0-9.0) 01/25/25 10:08
Ur Specific [place] 1.010 (<1.030) 01/25/25 10:08
Urine Ketones Negative (Negative) 01/25/25 10:08
Urine Occult Blood Negative (Negative) 01/25/25 10:08
Ur Occult Blood Reflex 1+ (Negative) A 01/22/25 12:16
Urine Nitrite Negative (Negative) 01/25/25 10:08
Urine Nitrite (Reflex) Negative (Negative) 01/22/25 12:16
Urine Bilirubin Negative (Negative) 01/25/25 10:08
Urine Urobilinogen Negative (Neg - 1+) 01/25/25 10:08
Ur Leukocyte Esterase Negative (Negative) 01/25/25 10:08
Leukocyte Esterase Rfl Negative (Negative) 01/22/25 12:16
Urine RBC 3-6 /HPF (0-2) A 01/22/25 12:16
Urine WBC (Reflex) 0-2 /HPF (0-5) 01/22/25 12:16
Ur Squamous Epith Cells 11-15 /LPF (Few) 01/22/25 12:16
Ur Urothelial Cells 11-15 /LPF (FEW) 01/22/25 12:16
Urine Bacteria (Reflex) Few (Negative) A 01/22/25 12:16
Hyaline Casts 0-2 /LPF (0-2) 01/22/25 12:16
Granular Casts 0-2 /LPF (0) 01/22/25 12:16
Urine Mucus Few 01/22/25 12:16
Urine Glucose 1+ (Negative) A 01/25/25 10:08
Urine Albumin 2+ (Neg - Trace) A 01/25/25 10:08
Urine Albumin (Reflex) 2+ (Neg - Trace) A 01/22/25 12:16
SARS-CoV-2 Antigen Negative (Negative) 01/22/25 00:52
POC Glucose 209 mg/dl (70-99) H 01/25/25 07:49
Blood Type O POS 01/18/25 06:53
Antibody Screen Negative (Negative) 01/18/25 06:53
�
Diagnostic Results:�as per HPI�
MRI of the brain is performed without contrast. There is significant motion artifact on several sequences, somewhat improved with utilization of fast imaging techniques.
In the inferior left cerebellar hemisphere, there are several patchy regions of restricted diffusion, which in conglomerate measure approximately 3 cm AP by 2.8 cm transverse by 2 cm craniocaudal. These correspond to regions of decreased density on
recent CT examinations, compatible with acute to subacute infarction.
Additionally, there is a 3 mm focus of restricted diffusion within the white matter posterior to the atria of the right lateral ventricle, near the parieto-occipital junction, seen on page 16 of diffusion-weighted images. This is compatible with a
small focus of acute to subacute infarction.
The T2 gradient echo images are severely limited. There is no gross evidence for acute intracranial hemorrhage.
There is no significant mass effect with no midline shift. The basilar cisterns are maintained.
Mild to moderate atrophy in this 84-year-old.
Mild to moderate T2 and FLAIR white matter hyperintensities, greatest involvement in the white matter lateral to the anterior body of the left lateral ventricle. These hyperintensities are commonly seen with aging and usually attributed to small
vessel ischemic disease.
The callosal angle appears normal, and findings are not considered highly suggestive of normal pressure hydrocephalus.
No evidence for Chiari malformation.
Moderate patchy mucosal thickening of the Mild peripheral mucosal thickening of the inferior left frontal sinus.
Mild peripheral mucosal thickening of the right sphenoid sinus. The maxillary sinuses appear clear.
The mastoid air cells appear clear.
IMPRESSION: Regions of abnormal restricted diffusion within the inferior left cerebellar hemisphere as described, compatible with acute to subacute infarction.
3 mm focus of restricted diffusion in the white matter posterior to the atria of the right lateral ventricle, near the parieto-occipital junction, also compatible with a small focus of acute to subacute infarction.
Significant motion artifact on this examination, which does limit resolution of several sequences. Motion artifact is greatest on the T2 gradient echo sequence, which limits evaluation for hemosiderin deposition.
�CXR 01/09: No acute cardiopulmonary process.
Colonoscopy 01/18:
- Preparation of the colon was fair.
- Diverticulosis in the descending colon and in the sigmoid colon.
- Stool in the entire examined colon.
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
colon. Tattooed.
- No specimens collected.
Assessment:
84 year old female with metastatic breast cancer with colon mass s/p partial left colectomy on 01/19 complicated by inferior left cerebellar hemisphere anf atria of the right lateral ventricle, near the parieto-occipital junction infarcts.
�
Plan�
PM&R�PT/OT to increase independence with ADLs, improve balance, coordination, endurance, strength, mobility, community reintegration, decreased burden of care on others and family education.�
Debility:S/p left colectomy: by Dr webster on 01/19.
CVA: Secondary prophylaxis with aspirin and Plavix for 21 days followed by Plavix lifelong, statin, and blood pressure control (SBP less than 180 and diastolic less than 100 to participate with therapy for ischemic stroke). Continue to monitor
neurologic status.�
Right dominant hemiparesis: High risk for falls and sliding out of chair/bed. Safety reinforced.�
- Avoid using affected arm to help lift or pull patient as this will cause trauma to the shoulder.
Dysphagia: evaluated by speech, now tolerating solid and thin diet, cont aspiration precautions
Poor appetite: Recommend consulting dietary for calorie count. Adding supplemental drinks. T/C feeding tube if po intake not sustainable
Cognitive deficits:� speech
Dysarthria: speech �
HTN: Amlodipine 2.5 mg BID, monitor closely�
HLD: Statin�
Coronary artery disease: Aspirin, statin, beta-brea�
DM2: Hba1c 8.6%, holding home Metformin, cont Lantus 4 units HS, cont SSI/accu-checks
Metastatic breast cancer: Letrozole
Anemia: Postop and multifactorial.� Continue to monitor.
Hyponatremia: trend- 129
Leukocytosis: WBCs trending back up from 13.2-15.5 as of 01/25. To be addressed
Hypokalemia: 3.2 to be replenished
Psych: Psychology consult.� Monitor mood, adjust medications as needed.�
Skin: monitor for pressure sores/rashes/lesions.�
Pain: acetaminophen or oxycodone as needed.� Stop IV dilaudid.
Bowel/constipation: Add Colace and Senna, PRN bisacodyl.�
Bladder/urinary retention: Time void, PVRs, PRN straight cath.�Lee removed then replaced as of 01/25.
GI Prophylaxis: Pantoprazole�
DVT Prophylaxis: mechanical and lovenox
Pulmonary: Incentive spirometry�
Safety: Continue to reinforce assistance with all transfers.�
Code Status:�DNR/DNI per chart
Dispo�(date/plan/equipment needs): Home with family care.� Social history reviewed.�
Functional and Medical Goals:�Modified Independent with ADL�s, ambulation, transfers�
Discharge Destination:��acute inpatient when medically stable, able to consistently tolerate po food, pain controlled with po meds for at least 24 hours in order to tolerate intense 3 hours of therapy daily.
Attending Statement: I saw and examined the patient today.� Reviewed care plan with patient, therapy, nursing, and physician equity sales assistant.� I agree with the above subjective and physical exam, and plan as documented by MANDY Arenas with adjustments
made as necessary. A total of 60 minutes were spent with the patient preparing for the evaluation, obtaining history, performing examination and evaluation, counseling, data review, case management, care coordination, order analyst, and EMR
documentation.
SUMMARY OF RECOMMENDATIONS:
Discharge Destination:��acute inpatient when medically stable, able to consistently tolerate po food
Leukocytosis: WBCs trending back up from 13.2-15.5 as of 01/25. reactive versus..
Bladder/urinary retention: Time void, PVRs, PRN straight cath.�Lee removed then replaced as of 01/25. Improved regular bowel movements may improve voiding issue
Bowel/constipation: Add Colace and Senna, PRN bisacodyl.�
Poor appetite: Recommend consulting dietary for calorie count. Adding supplemental protein drinks. Consider feed tube if po intake not sustainable.
Pain: acetaminophen or oxycodone as needed.� Stop IV dilaudid.
Thank you for allowing me to care for your patient. Please contact me with any questions or concerns.
[2025-01-25] MEDS: PLAVIX 75 MG PO (09:05)
[2025-01-25] MEDS: FEMARA 2.5 MG PO (09:05)
[2025-01-25] MEDS: NORVASC 2.5 MG PO ×2 (09:05→20:47)
[2025-01-25] MEDS: LOW STRENGTH ASPIRIN 81 MG PO (09:05)
--- NOTE | 2025-01-25 09:19 | W.PN.CRS1 ---
Today's Communication / Plan
-
reinsertion of meyer
urology consult
eventual [facility]
trend wbc
Assessment/Plan
-
84 yo female with h/o DM, breast ca with transverse colon mass now
POD #5 1) open partial colectomy (portion of transverse colon) 2) takedown of splenic flexure 3) lysis of adhesions
WBC: 15.5 (13.2)
AFVSS
neuro status change 01/21 - CT with left posterior cerebellar stroke
01/22- MRI performed inferior left cerebellar hemisphere, there are several patchy regions of restricted diffusion, which in conglomerate measure approximately 3 cm AP by 2.8 cm transverse by 2 cm craniocaudal, 3 mm focus of restricted diffusion in
the white matter posterior to the atria of the right lateral ventricle, near the parieto-occipital junction, also compatible with a small focus of acute to subacute infarction.
Plan:
-Medical management as per hospitalist - notified regarding wbc increase
-Speech path cleared regular with thins.
-Okay for oral ASA/Plavix
-Appreciate hospitalist/neurology
-Await OR path
-Analgesics with tylenol IV and PRN Dilaudid.
-OOB/Ambulate. PT/OT following
-SCDs and Lovenox for VTE ppx
-Daily wound dressing changes and PRN
-meyer in place due to urinary retention a few days ago - urology consulted
-Dispo: eventual [place] [facility]
Subjective Data
Procedure
01/19/25 1) open partial colectomy (portion of transverse colon) 2) takedown of splenic flexure 3) lysis of adhesions
Subjective Data
Date of Service: January 25, 2025
Patient states she feels good. She is having flatus. She is not sure when her last BM was (according to nursing records she had a BM early this morning and on 01/21). Denies pain. Denies nausea or vomiting. She was straight cathed twice yesterday.
Objective Data
-
Vital Signs
Temp Pulse Resp BP Pulse Ox
97.7 F 84 18 130/67 97
01/25/25 08:10 01/25/25 08:10 01/25/25 08:10 01/25/25 08:10 01/25/25 08:10
Intake & Output
01/24/25 01/25/25 01/26/25
06:59 06:59 06:59
Intake Total 600 / 600
Output Total 650 / 650 1150 / 1150
Balance -650 / -650 -550 / -550
Intake:
Oral fluids 600 / 600
Output:
Urine, Meyer 650 / 650
Straight cath output 1150 / 1150
Lab Results
01/25/25 07:44
Physical Exam
-
General: No Acute Distress and AOx3
Abdomen: Soft, Non Distended and Non Tender
Skin: Warm and Dry
Incision: Clear, Dry, Intact
[2025-01-25 09:53] LABS: Blood Urea Nitrogen 10 mg/dl (7-17); Calcium 9.0 mg/dl (8.4-10.2); Carbon Dioxide 27 mmol/L (22-30); Chloride 100 mmol/L (98-107); Estimated Creatinine Clearance 66 ml/min; Glucose 188 mg/dl (70-99); Potassium 3.2 mmol/L (3.5-5.1); Sodium 129 mmol/L (135-145); eGFR > 60.00
[2025-01-25 10:10] VITALS: BP 128/61; PULSE 92
[2025-01-25 10:24] LABS: Urine Character Clear (Clear)
--- NOTE | 2025-01-25 11:42 | W.PN.HOSP.TC ---
Today's Communication/Plan
-
infectious workup per primary; no fevers, hold off Abx
changed to diabetic diet
Assessment / Plan
Assessment / Plan
CXR 01/09: No acute cardiopulmonary process.
Colonoscopy 01/18:
- Preparation of the colon was fair.
- Diverticulosis in the descending colon and in the sigmoid colon.
- Stool in the entire examined colon.
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
colon. Tattooed.
- No specimens collected.
CT brain: There is a hypodensity within the inferior left cerebellar hemisphere for which a subacute infarction is possible. No evidence of acute intracranial hemorrhage.
CTA Head: No large vessel occlusion. There is mild stenosis within the bilateral supraclinoid ICAs as well as the bilateral M1 segments of the middle cerebral arteries. There is focal high-grade stenosis within the A3 segment of the left anterior
cerebral artery.
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
Assessment:
Acute CVA
- MRI: inferior left cerebellar hemisphere 3 x 2.8 x 2.cm acute to subacute infarct. Also 3 mm focus of restricted diffusion in the white matter posterior to the atria of the right lateral ventricle, near the parieto-occipital junction
- Echo: no evidence of clot
- Neuro following. previously not a TNK candidate due to major surgery
- continue ASA/Plavix x 3 weeks, then ASA daily.
- EEG: No epileptiform features were demonstrated
- PT/OT/ST evals appreciated; PMR eval for acute rehab placement
Leukocytosis
- UA negative
- await CXR and Venous dopplers
- no fevers, monitor off Abx
Urinary retention
- Lee placed; Urology consulted by primary
Transverse colon mass:
- s/p open partial colectomy (portion of transverse colon), takedown of splenic flexure, and lysis of adhesions on 01/19/25
- tolerating diet
- CRS is primary and managing
Hyponatremia, mild, trend
DM2: a1c 8.6%, holding home Metformin, cont Lantus 4U HS, cont SSI/accu-checks. Diabetic diet.
Essential HTN: cont Norvasc
h/o metastatic breast cancer: cont Letrozole
HLD: cont statin
DVT ppx: Lovenox + SCDs
Code: DNR/DNI
Hospitalist service will continue to follow along.
Anticipated Discharge: > 48 hours
Subjective/Interval History
-
Date of Service: January 25, 2025
patient feels well, no complaints
has required 2 straight cath last evening
noted rising leukocytosis; UA negative. additional workup is pending
Objective Data
-
Labs:
Laboratory Results
01/25/25
07:44
WBC 15.5 H
Hgb 11.0 L
Hct 31.7 L
Plt Count 371 D
Sodium 129 L
Potassium 3.2 L
Chloride 100
Carbon Dioxide 27
BUN 10
Creatinine 0.6
Glucose 188 H
Calcium 9.0
Vital Signs:
Vital Signs
Temp Pulse Resp BP Pulse Ox
97.7 F 84 18 130/67 97
01/25/25 08:10 01/25/25 08:10 01/25/25 08:10 01/25/25 08:10 01/25/25 08:10
I&O
01/24/25 01/25/25 01/26/25
06:59 06:59 06:59
Intake Total 600 / 600
Output Total 650 / 650 1150 / 1150
Balance -650 / -650 -550 / -550
Physical Exam
-
General: No Apparent Distress
HEENT: Normocephalic and Atraumatic
Respiratory: Negative Wheezes
Cardiac: Regular Rhythm and S1/S2
GI: Soft and Nontender
Musculoskeletal: No Edema
Neuro: AO x 3
Psych: Calm
Data Reviewed
-
Total Time Spent with Patient (in minutes): 42
Labs: Labs Reviewed by me
--- NOTE | 2025-01-25 11:53 | W.PN.URO.CBU ---
Today's Communication / Plan
-
TRANSFER TO [facility] WHEN OK
Assessment / Plan
-
URINARY RETENTION ACUTE TREAT WITH BLOUNT GO TO [facility] AND VOIDING TRIAL IF FAILS THEN OUTPATIENT URODYNAMICS
Diagnosis
-
Date of Service: January 25, 2025
-
acute utinary retention post pelvic and CVA X 2
Post Op Day:
Subjective
-
CANNOT VOID
Objective
-
Vital Signs
Temp Pulse Resp BP Pulse Ox
97.7 F 84 18 130/67 97
01/25/25 08:10 01/25/25 08:10 01/25/25 08:10 01/25/25 08:10 01/25/25 08:10
Intake and Output
01/24/25 01/25/25 01/26/25
06:59 06:59 06:59
Intake Total 600 / 600
Output Total 650 / 650 1150 / 1150
Balance -650 / -650 -550 / -550
Intake:
Oral fluids 600 / 600
Output:
Urine, [place] 650 / 650
Straight cath output 1150 / 1150
Laboratory Results
01/25/25 07:44
01/25/25 07:44
Review of Systems
-
: Difficulty Voiding
Physical Exam
-
General - well developed, well nourished, no acute distress
Chest - clear bilaterally
Abdomen - soft, non-tender, positive bowel sounds, no CVAT, no incisional pain or distention
Genitalia - normal
Rectal - normal
Skin - warm & dry with no rash
Neuro - AOx3, no motor deficits
Extremities - no clubbing, no cyanosis, no edema
Incision - clean, dry
Dressing - clean, dry, intact
Counseling
-
KEEP BLOUNT
Care Review
Data Reviewed
Discussed with: Hospitalist
[2025-01-25 12:01] LABS: Glucose - Point of Care 230 mg/dl (70-99)
[2025-01-25 12:32] LABS: Urine Red Blood Cell 0-2 /HPF (0-2)
[2025-01-25 15:35] VITALS: BP 147/63
[2025-01-25 17:28] LABS: Glucose - Point of Care 205 mg/dl (70-99)
[2025-01-25] MEDS: LIPITOR 40 MG PO (18:09)
[2025-01-25] MEDS: LOVENOX 40 MG SC (18:09)
[2025-01-25] MEDS: KCL 40 MEQ PO (20:47)
[2025-01-25 21:28] LABS: Glucose - Point of Care 161 mg/dl (70-99)
[2025-01-25] MEDS: LANTUS 0.04 UNITS SC (21:52)
[2025-01-25 23:32] VITALS: BP 160/68
[2025-01-25 23:44] VITALS: BP 167/75
[2025-01-26 06:00] VITALS: BMI 29.3
[2025-01-26 07:07] VITALS: BP 132/65
[2025-01-26 07:21] LABS: Glucose - Point of Care 142 mg/dl (70-99)
[2025-01-26 08:17] LABS: Hematocrit 30.2 % (37.0-47.0); Hemoglobin 10.3 g/dL (12.0-16.0); Mean Corp Hgb Conc. 34.1 g/dL (33.0-37.0); Mean Corpuscular Volume 84.6 fL (81.0-99.0); Nucleated Red Blood Cells % 0 %; Platelet Count 393 10^3/uL (130-400); Red Cell Dist. Width 12.7 % (11.5-14.5)
[2025-01-26 08:41] LABS: Blood Urea Nitrogen 9 mg/dl (7-17); Calcium 8.8 mg/dl (8.4-10.2); Carbon Dioxide 27 mmol/L (22-30); Chloride 101 mmol/L (98-107); Estimated Creatinine Clearance 66 ml/min; Glucose 155 mg/dl (70-99); Potassium 3.9 mmol/L (3.5-5.1); Sodium 130 mmol/L (135-145); eGFR > 60.00
--- NOTE | 2025-01-26 08:56 | W.PN.CRS1 ---
Today's Communication / Plan
-
As below
Assessment/Plan
-
84 yo female with h/o DM, breast ca, found to have transverse colon mass, presented for elective surgery
POD #6 1) open partial colectomy (portion of transverse colon) 2) takedown of splenic flexure 3) lysis of adhesions
AFVSS
WBC 14.3 from 15.5, Hb stable, sodium 130 from 129, CR 0.6
�Increasing leukocytosis; UA, CXR and duplex all negative, currently asymptomatic
�No left shift, possibly reactive, trending down
� Continue Lee for retention; will need urology follow-up outpatient
� Continue dysphagia diet
� Continue pain control with Toradol and Dilaudid as needed
�Will start Colace twice daily
� Continue DVT PPx with Lovenox; continue ASA/Plavix for recent stroke; appreciate neurology
� Appreciate hospitalist consult
Dispo�okay for DC to [facility] from colorectal standpoint, pending medical clearance
Subjective Data
Procedure
01/19/25 1) open partial colectomy (portion of transverse colon) 2) takedown of splenic flexure 3) lysis of adhesions
Subjective Data
Date of Service: January 26, 2025
No overnight events.
Pain controlled.
Denies nausea/vomiting. Tolerating diet.
+flatus +BMs (per records, normal BM yesterday) + Lee
Pt is OOB.
Objective Data
-
Vital Signs
Temp Pulse Resp BP Pulse Ox
99.0 F 94 16 132/65 97
01/26/25 07:07 01/26/25 07:07 01/26/25 07:07 01/26/25 07:07 01/26/25 07:07
Intake & Output
01/25/25 01/26/25 01/27/25
06:59 06:59 06:59
Intake Total 600 / 600 600 / 600
Output Total 1150 / 1150 2000 / 1999
Balance -550 / -550 -1400 / -1400
Intake:
Oral fluids 600 / 600 600 / 600
Output:
Urine, Lee 1800 / 1800
Urine, Voided 200 / 200
Straight cath output 1150 / 1150
Lab Results
01/26/25 07:27
01/26/25 07:27
Physical Exam
-
General: No Acute Distress, Well Developed and Other (Alert and following commands)
HEENT: Grossly Normal
Abdomen: Soft, Non Distended, Tender (Minimally tender in the LLQ), No Guarding and No Rebound
Skin: Warm and Dry
Wound: No Signs of Infection and No Skin Erythema
[2025-01-26] MEDS: NOVOLOG FLEXPEN-LOW RESISTANCE SC (09:21)
[2025-01-26] MEDS: PLAVIX 75 MG PO (09:21)
[2025-01-26] MEDS: NORVASC 2.5 MG PO (09:22)
[2025-01-26] MEDS: LOW STRENGTH ASPIRIN 81 MG PO (09:23)
--- NOTE | 2025-01-26 09:23 | W.PN.HOSP.TC ---
Today's Communication/Plan
-
continue current plan of care
Assessment / Plan
Assessment / Plan
CXR 01/09: No acute cardiopulmonary process.
Colonoscopy 01/18:
- Preparation of the colon was fair.
- Diverticulosis in the descending colon and in the sigmoid colon.
- Stool in the entire examined colon.
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
colon. Tattooed.
- No specimens collected.
CT brain: There is a hypodensity within the inferior left cerebellar hemisphere for which a subacute infarction is possible. No evidence of acute intracranial hemorrhage.
CTA Head: No large vessel occlusion. There is mild stenosis within the bilateral supraclinoid ICAs as well as the bilateral M1 segments of the middle cerebral arteries. There is focal high-grade stenosis within the A3 segment of the left anterior
cerebral artery.
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
Assessment:
Acute CVA
- MRI: inferior left cerebellar hemisphere 3 x 2.8 x 2.cm acute to subacute infarct. Also 3 mm focus of restricted diffusion in the white matter posterior to the atria of the right lateral ventricle, near the parieto-occipital junction
- Echo: no evidence of clot
- Neuro following. previously not a TNK candidate due to major surgery
- continue ASA/Plavix x 3 weeks, then ASA daily.
- EEG: No epileptiform features were demonstrated
- PT/OT/ST evals appreciated; PMR eval for acute rehab placement
Leukocytosis
- UA negative, CXR And dopplers negative
- no fevers, monitor off Abx
- repeat CBC in 1 week
Urinary retention
- Lee placed; Urology following
- void trial at rehab
Transverse colon mass:
- s/p open partial colectomy (portion of transverse colon), takedown of splenic flexure, and lysis of adhesions on 01/19/25
- tolerating diet
- CRS is primary and managing
Hyponatremia, mild, trend
DM2: a1c 8.6%, holding home Metformin but resume at discharge, cont Lantus 4U HS, cont SSI/accu-checks. Diabetic diet.
Essential HTN: cont Norvasc
h/o metastatic breast cancer: cont Letrozole
HLD: cont statin
DVT ppx: Lovenox + SCDs
Code: DNR/DNI
Hospitalist service will continue to follow along.
Anticipated Discharge: Within 24 hours
Subjective/Interval History
-
Date of Service: January 26, 2025
resting comfortably, no new complaints
infectious workup 01/25 was negative
Objective Data
-
Labs:
Laboratory Results
01/26/25
07:27
WBC 14.3 H
Hgb 10.3 L
Hct 30.2 L
Plt Count 393
Sodium 130 L
Potassium 3.9
Chloride 101
Carbon Dioxide 27
BUN 9
Creatinine 0.6
Glucose 155 H
Calcium 8.8
Vital Signs:
Vital Signs
Temp Pulse Resp BP Pulse Ox
99.0 F 94 16 132/65 97
01/26/25 07:07 01/26/25 07:07 01/26/25 07:07 01/26/25 07:07 01/26/25 07:07
I&O
01/25/25 01/26/25 01/27/25
06:59 06:59 06:59
Intake Total 600 / 600 600 / 600
Output Total 1150 / 1150 2000 / 2000
Balance -550 / -550 -1400 / -1400
Physical Exam
-
General: No Apparent Distress
HEENT: Normocephalic and Atraumatic
Respiratory: Negative Wheezes
Cardiac: Regular Rhythm
GI: Soft and Nontender
Genito-urinary: No Costovertebral Tender
Neuro: AO x 3
Psych: Calm
Data Reviewed
-
Total Time Spent with Patient (in minutes): 42
Labs: Labs Reviewed by me
[2025-01-26] MEDS: COLACE 100 MG PO (09:24)
[2025-01-26] MEDS: FEMARA 2.5 MG PO (09:24)
[2025-01-26 10:25] VITALS: BP 157/64; PULSE 74
--- NOTE | 2025-01-26 10:32 | CM ---
CM following re: discharge planning.
Reviewed pt's chart, met with pt.
Discharge order noted. Pt is aware, expressed her agreement with discharge. IMM reviewed, placed on chart, pt has a copy.
PT, PT, ST and PMNR evaluations noted - acute rehab level of care recommended. Pt referred to [facility] by previous CM.
CM spoke to [facility] specialist Tete and she confirmed that pt is accepted for admission to [facility] location today.
CM initiated an auth for acute [facility], spoke to national account representative Lillie and based on pt's clinical pt approved for 7 initial days starting today 01/26/25 till 02/01/25 with LCD and NRD 02/01/25. Auth: [id number]
Auth information forwarded to [facility] specialist and she stated she will let me know what time pt can be admitted today.
[facility] rehab nursing report: [phone]
Discharge instructions fax: [phone]
D/C plan: [facility] today
--- NOTE | 2025-01-26 11:08 | W.PN.URO.CBU ---
Today's Communication / Plan
-
keep meyer try leg bag to help ambuation
Assessment / Plan
-
URINARY RETENTION ACUTE TREAT WITH MEYER GO TO [facility] AND VOIDING TRIAL IF FAILS THEN OUTPATIENT URODYNAMICS
Diagnosis
-
Date of Service: January 26, 2025
-
Patient Diagnosis:
Post Op Day:
acute utinary retention post pelvic and CVA X 2
Post Op Day:
Subjective
-
cannot void
Objective
-
Vital Signs
Temp Pulse Resp BP Pulse Ox
99.0 F 94 16 132/65 97
01/26/25 07:07 01/26/25 07:07 01/26/25 07:07 01/26/25 07:07 01/26/25 07:07
Intake and Output
01/25/25 01/26/25 01/27/25
06:59 06:59 06:59
Intake Total 600 / 600 600 / 600
Output Total 1150 / 1150 2000 / 2000
Balance -550 / -550 -1400 / -1400
Intake:
Oral fluids 600 / 600 600 / 600
Output:
Urine, Meyer 1800 / 1800
Urine, Voided 200 / 200
Straight cath output 1150 / 1150
Laboratory Results
01/26/25 07:27
01/26/25 07:27
Review of Systems
-
: Difficulty Voiding
Physical Exam
-
General - well developed, well nourished, no acute distress
Chest - clear bilaterally
Abdomen - soft, non-tender, positive bowel sounds, no CVAT, no incisional pain or distention
Genitalia - normal
Rectal - normal
Skin - warm & dry with no rash
Neuro - AOx3, no motor deficits
Extremities - no clubbing, no cyanosis, no edema
Incision - clean, dry
Dressing - clean, dry, intact
Counseling
-
try leg bag to increase mobility
Care Review
Data Reviewed
Discussed with: Nursing
[2025-01-26 11:32] LABS: Glucose - Point of Care 187 mg/dl (70-99)
[2025-01-26] MEDS: NOVOLOG FLEXPEN-LOW RESISTANCE 1 UNITS SC (12:39)
--- NOTE | 2025-01-26 13:31 | PTCARENOTE ---
spoke with Filiberto nurse passing report. Family in room notified of room# 312, they packed belongs and took to room. VSS
[2025-01-26 13:59] VITALS: BP 130/64
== END 2025-01-26 13:50 | DRG 329 ==
LOC: 2 SOUTH 16:41
PROVIDERS: Internal Medicine; Nurse Practitioner Family; Physician Assistant; Registered Nurse; Student in an Organized Health Care Education/Training Program; ADMITTING PHYSICIAN Surgery; CONSULT PHYSICIAN Physical Medicine & Rehabilitation; CONSULT PHYSICIAN Psychiatry & Neurology Neurology; CONSULT PHYSICIAN Specialist; OTHER PHYSICIAN Internal Medicine
PROC: 0DJD8ZZ Inspection of Lower Intestinal Tract, Via Natural or Artificial Opening Endoscopic (ICD-10-PCS; 2025-01-18)
PROC: 0DBL0ZZ Excision of Transverse Colon, Open Approach (ICD-10-PCS; 2025-01-19)
DX: C18.4 Malignant neoplasm of transverse colon (principal); I63.9 Cerebral infarction, unspecified; E87.1 Hypo-osmolality and hyponatremia; G81.91 Hemiplegia, unspecified affecting right dominant side; R47.01 Aphasia; K66.0 Peritoneal adhesions (postprocedural) (postinfection); Z85.3 Personal history of malignant neoplasm of breast; Z90.12 Acquired absence of left breast and nipple; Z85.528 Personal history of other malignant neoplasm of kidney; K57.30 Diverticulosis of large intestine without perforation or abscess without bleeding; R33.9 Retention of urine, unspecified; D72.829 Elevated white blood cell count, unspecified; E11.65 Type 2 diabetes mellitus with hyperglycemia; Z79.84 Long term (current) use of oral hypoglycemic drugs; I10 Essential (primary) hypertension; E78.5 Hyperlipidemia, unspecified; Z79.82 Long term (current) use of aspirin; D64.9 Anemia, unspecified; E87.6 Hypokalemia; G89.29 Other chronic pain; I25.10 Atherosclerotic heart disease of native coronary artery without angina pectoris; J45.909 Unspecified asthma, uncomplicated; N31.2 Flaccid neuropathic bladder, not elsewhere classified; Z66 Do not resuscitate; Z79.899 Other long term (current) drug therapy; Z80.6 Family history of leukemia; Z82.49 Family history of ischemic heart disease and other diseases of the circulatory system; Z90.5 Acquired absence of kidney; Z91.040 Latex allergy status
CPT/HCPCS: 0042T; 70450; 70496; 70498; 70551; 71046; 80048; 80053; 80061; 81003; 81015; 82962; 83605; 83735; 85025; 85027; 85610; 85730; 86850; 86900; 86901; 87040; 87086; 87502; 87811; 88304; 88309; 88342; 92507; 92523; 92526; 92610; 93005; 93308; 93970; 95816; 97116; 97163; 97164; 97167; 97168; J1335; Q9967

== ENCOUNTER 2025-01-28 12:55 | Inpatient (IN) | payer OTHER, SELFPAY ==
[2025-01-28] VITALS (17 sets, daily range): BP systolic 110–152; BP diastolic 48–84; BMI 29.3; BMI 27.8
[2025-01-28 10:17] LABS: ALT (SGPT) 26 U/L (0-35); AST (SGOT) 33 U/L (14-36); Albumin 2.9 g/dl (3.5-5.0); Alkaline Phosphatase 97 U/L (38-126); Blood Urea Nitrogen 17 mg/dl (7-17); Calcium 8.9 mg/dl (8.4-10.2); Carbon Dioxide 23 mmol/L (22-30); Chloride 100 mmol/L (98-107); Glucose 262 mg/dl (70-99); Potassium 4.1 mmol/L (3.5-5.1); Sodium 128 mmol/L (135-145)
[2025-01-28 10:18] LABS: Hematocrit 29.2 % (37.0-47.0); Hemoglobin 9.7 g/dL (12.0-16.0); INR 1.01; Mean Corp Hgb Conc. 33.2 g/dL (33.0-37.0); Mean Corpuscular Volume 86.6 fL (81.0-99.0); Nucleated Red Blood Cells % 0 %; PT 13.6 Sec (11.4-14.6); Platelet Count 481 10^3/uL (130-400); Red Cell Dist. Width 13.2 % (11.5-14.5)
[2025-01-28 10:19] LABS: APTT 35.3 Sec (23.4-35.0)
--- NOTE | 2025-01-28 10:29 | ED.GENMED ---
History of Present Illness
<Bridgette Devine PA-C - Last Filed: 01/28/25 17:31>
General
Chief Complaint: Rectal Bleeding
Time Seen by Provider: 01/28/25 09:46
History of Present Illness
History of Present Illness:
see MDM
Past History
<Bridgette Devine PA-C - Last Filed: 01/28/25 17:31>
Past History
ED Past Medical History: Asthma, Cancer (Adrenal tumor, breast), CVA, NIDDM and Other (Pheochromocytoma)
ED Past Surgical History: Bowel resection, Orthopedic and Urological (Nephrectomy)
Social History
Tobacco: Non-smoker
Alcohol: None
Drug: None
Phy Exam
<DAVID Mark Last Filed: 01/28/25 17:31>
Physical Exam
Physical Exam:
see MDM
Course
<Bridgette Devine PA-C - Last Filed: 01/28/25 17:31>
Orders/Labs/Results
Orders:
Orders
01/28/25 09:48
EKG [Electrocardiogram (*1)] Stat
Reason for Study: Fatigue / Weakness
EKG- Treatment ONCE
01/28/25 09:50
Type+Screen Urgent
Complete Blood Count/With Diff Urgent
Comprehensive Metabolic Panel Urgent
PTT Urgent
Prothrombin Time Urgent
01/28/25 Lunch
Clear Liquid
At Your Request: Non-Participating
Does patient need a safe tray?: No
01/28/25 10:12
CT Abd/pel Without Iv Or Oral Urgent
Comment:
Reason For Exam: melena, recent colocteomy but 1 kidney, no IV con
01/28/25 10:37
Lactic Acid Urgent
Troponin I Urgent
01/28/25 11:17
0.9% Sodium Chloride 500 ml [Nss] 500 ml IV BOLUS
Morphine Sulfate 2 mg IV NOW STA
Pantoprazole [Protonix IV] 40 mg IV NOW STA
01/28/25 12:30
Admit/Transfer Patient As Directed
Co-Sign Provider:
Level of Care: Inpatient admission
Assign to:: Telemetry
Physician / Group: Dr. Liz Mcguire
Diagnosis: Lower GI bleed
Reason for Telemetry: Arrhythmia
Date to Stop Telemetry: 01/31/25
Time to Stop Telemetry: 11:00
Reason for Hospitalization: Lower GI bleed
Expected length of stay greater than two midnights?: Yes
ELOS- Estimated Length of Stay in days: 2
I certify the patient meets the requirements for IP care: Yes
01/28/25 12:32
PRN Pain Medication Management As Directed
May give lesser potent ordered pain med per pt: Yes
preference::
Protocol:: Medication orders for pain may be administered in a
manner that supports deferring to patient preference
when the pt is:
- Requesting an ordered lesser potent pain medication.
Least to most potent pain medications are defined
as: acetaminophen < NSAID < tramadol < opioids
(morphine, oxycodone, hydromorphone).
- Requesting a lesser dose of the same medication IF
ORDERED.
- Requesting a less intrusive route of administration
if both routes are prescribed by the provider (PO <
IV).
01/28/25 12:38
Code Status As Directed
Resuscitation Status: Do not resuscitate
Reached after discussion with pt or family/Healthcare POA: Yes
DNR Bracelet Application ONCE
01/28/25 15:25
Docusate Sodium [Colace] 100 mg PO BIDPRN PRN constipation
Pantoprazole [Protonix IV] 40 mg IV DAILY
01/28/25 15:25
ColoRectal Surgery Consult Urgent
Consulting Provider: Singh Webster
Was physician already notified: Yes
NEUROLOGY CONSULT Urgent
Consulting Provider: Kevin Rodriguez
Was physician already notified: Yes
Activity As Directed
Activity Level: As Tolerated
INT (Intravenous Needle Therapy) As Directed
Comment: Place 2 IV catheters of the largest bore possible until stable
Orthostatic Vital Signs As Directed
Orthostatic VS Frequency: Now
Comment: then every four hours for twenty-four hours
Pneumatic Compression Sleeves As Directed
Type: Knee high
Vital Signs As Directed
Frequency: Per unit guidelines
DX Deep Vein Thrombosis Video Routine
01/28/25 16:00
Troponin I Q6H
01/28/25 16:44
HH [H&H] Routine
01/28/25 18:00
Atorvastatin [Lipitor] 20 mg PO QPM
01/28/25 20:00
METFORMIN HCl [Glucophage] 1,000 mg PO BID
01/28/25 22:00
Troponin I Q6H
01/29/25 04:00
Troponin I Q6H
01/29/25 06:00
Complete Blood Count/With Diff IN AM
Comprehensive Metabolic Panel IN AM
01/29/25 08:00
Amlodipine [Norvasc] 5 mg PO DAILY
Aspirin Chewable [Low Strength Aspirin] 81 mg PO DAILY
Uzcqnyaie-Jva-Islg [Femara] 2.5 mg PO DAILY
01/31/25 11:00
DC Protocol for Telemetry ONCE
Abnormal Lab Results
01/28/25 01/28/25
09:50 10:37
WBC 18.7 H 10^3/uL
(4.8-10.8)
RBC 3.37 L 10^6/uL
(4.20-5.40)
Hgb 9.7 L g/dL
(12.0-16.0)
Hct 29.2 L %
(37.0-47.0)
Plt Count 481 H D 10^3/uL
(130-400)
Abs Immat Gran (auto) 0.2 H 10^3/uL
(0-0.05)
Absolute Neuts (auto) 14.1 H 10^3/uL
(1.4-6.5)
Absolute Monos (auto) 1.5 H 10^3/uL
(0.1-0.6)
Immature Gran % 1.2 H %
(0-0.5)
Neutrophils % 75.3 H %
(42.2-75.2)
Lymphocytes % 13.7 L %
(20.5-51.1)
APTT 35.3 H Sec
(23.4-35.0)
Sodium 128 L mmol/L
(135-145)
Glucose 262 H mg/dl
(70-99)
Troponin I 0.036 H* ng/ml
Total Protein 5.5 L g/dl
(6.3-8.2)
Albumin 2.9 L g/dl
(3.5-5.0)
01/28/25 09:50
01/28/25 09:50
Vital Signs
Initial and Last Documented VS:
Initial Vital Signs
Temp Pulse Resp BP Pulse Ox
36.7 C 96 20 110/59 97
01/28/25 09:40 01/28/25 09:40 01/28/25 09:40 01/28/25 09:40 01/28/25 09:40
Last Documented Vital Signs
Temp Pulse Resp BP Pulse Ox
36.2 C 73 16 120/57 97
01/28/25 15:48 01/28/25 15:48 01/28/25 15:48 01/28/25 15:50 01/28/25 15:48
<Gabriel Arguelles MD - Last Filed: 01/28/25 12:02>
Orders/Labs/Results
Orders:
Orders
01/28/25 09:48
EKG [Electrocardiogram (*1)] Stat
Reason for Study: Fatigue / Weakness
EKG- Treatment ONCE
01/28/25 09:50
Type+Screen Urgent
Complete Blood Count/With Diff Urgent
Comprehensive Metabolic Panel Urgent
PTT Urgent
Prothrombin Time Urgent
01/28/25 Lunch
Clear Liquid
At Your Request: Non-Participating
Does patient need a safe tray?: No
01/28/25 10:12
CT Abd/pel Without Iv Or Oral Urgent
Comment:
Reason For Exam: melena, recent colocteomy but 1 kidney, no IV con
01/28/25 10:37
Lactic Acid Urgent
Troponin I Urgent
01/28/25 11:17
0.9% Sodium Chloride 500 ml [Nss] 500 ml IV BOLUS
Morphine Sulfate 2 mg IV NOW STA
Pantoprazole [Protonix IV] 40 mg IV NOW STA
01/28/25 12:30
Admit/Transfer Patient As Directed
Co-Sign Provider:
Level of Care: Inpatient admission
Assign to:: Telemetry
Physician / Group: Dr. Liz Mcguire
Diagnosis: Lower GI bleed
Reason for Telemetry: Arrhythmia
Date to Stop Telemetry: 01/31/25
Time to Stop Telemetry: 11:00
Reason for Hospitalization: Lower GI bleed
Expected length of stay greater than two midnights?: Yes
ELOS- Estimated Length of Stay in days: 2
I certify the patient meets the requirements for IP care: Yes
01/28/25 12:32
PRN Pain Medication Management As Directed
May give lesser potent ordered pain med per pt: Yes
preference::
Protocol:: Medication orders for pain may be administered in a
manner that supports deferring to patient preference
when the pt is:
- Requesting an ordered lesser potent pain medication.
Least to most potent pain medications are defined
as: acetaminophen < NSAID < tramadol < opioids
(morphine, oxycodone, hydromorphone).
- Requesting a lesser dose of the same medication IF
ORDERED.
- Requesting a less intrusive route of administration
if both routes are prescribed by the provider (PO <
IV).
01/28/25 12:38
Code Status As Directed
Resuscitation Status: Do not resuscitate
Reached after discussion with pt or family/Healthcare POA: Yes
DNR Bracelet Application ONCE
01/28/25 15:25
Docusate Sodium [Colace] 100 mg PO BIDPRN PRN constipation
Pantoprazole [Protonix IV] 40 mg IV DAILY
01/28/25 15:25
ColoRectal Surgery Consult Urgent
Consulting Provider: Singh Webster
Was physician already notified: Yes
NEUROLOGY CONSULT Urgent
Consulting Provider: Kevin Rodriguez
Was physician already notified: Yes
Activity As Directed
Activity Level: As Tolerated
INT (Intravenous Needle Therapy) As Directed
Comment: Place 2 IV catheters of the largest bore possible until stable
Orthostatic Vital Signs As Directed
Orthostatic VS Frequency: Now
Comment: then every four hours for twenty-four hours
Pneumatic Compression Sleeves As Directed
Type: Knee high
Vital Signs As Directed
Frequency: Per unit guidelines
DX Deep Vein Thrombosis Video Routine
01/28/25 16:00
Troponin I Q6H
01/28/25 16:44
HH [H&H] Routine
01/28/25 18:00
Atorvastatin [Lipitor] 20 mg PO QPM
01/28/25 20:00
METFORMIN HCl [Glucophage] 1,000 mg PO BID
01/28/25 22:00
Troponin I Q6H
01/29/25 04:00
Troponin I Q6H
01/29/25 06:00
Complete Blood Count/With Diff IN AM
Comprehensive Metabolic Panel IN AM
01/29/25 08:00
Amlodipine [Norvasc] 5 mg PO DAILY
Aspirin Chewable [Low Strength Aspirin] 81 mg PO DAILY
Sipfzgbiw-Jie-Bqqc [Femara] 2.5 mg PO DAILY
01/31/25 11:00
DC Protocol for Telemetry ONCE
Abnormal Lab Results
01/28/25 01/28/25
09:50 10:37
WBC 18.7 H 10^3/uL
(4.8-10.8)
RBC 3.37 L 10^6/uL
(4.20-5.40)
Hgb 9.7 L g/dL
(12.0-16.0)
Hct 29.2 L %
(37.0-47.0)
Plt Count 481 H D 10^3/uL
(130-400)
Abs Immat Gran (auto) 0.2 H 10^3/uL
(0-0.05)
Absolute Neuts (auto) 14.1 H 10^3/uL
(1.4-6.5)
Absolute Monos (auto) 1.5 H 10^3/uL
(0.1-0.6)
Immature Gran % 1.2 H %
(0-0.5)
Neutrophils % 75.3 H %
(42.2-75.2)
Lymphocytes % 13.7 L %
(20.5-51.1)
APTT 35.3 H Sec
(23.4-35.0)
Sodium 128 L mmol/L
(135-145)
Glucose 262 H mg/dl
(70-99)
Troponin I 0.036 H* ng/ml
Total Protein 5.5 L g/dl
(6.3-8.2)
Albumin 2.9 L g/dl
(3.5-5.0)
01/28/25 09:50
01/28/25 09:50
Vital Signs
Initial and Last Documented VS:
Initial Vital Signs
Temp Pulse Resp BP Pulse Ox
36.7 C 96 20 110/59 97
01/28/25 09:40 01/28/25 09:40 01/28/25 09:40 01/28/25 09:40 01/28/25 09:40
Last Documented Vital Signs
Temp Pulse Resp BP Pulse Ox
36.2 C 73 16 120/57 97
01/28/25 15:48 01/28/25 15:48 01/28/25 15:48 01/28/25 15:50 01/28/25 15:48
<Bridgette Devine PA-C - Last Filed: 01/28/25 17:31>
MDM/Problems Addressed
Differential Diagnosis Includes:
see MDM
MDM/Problems Addressed:
Note:
CHIEF COMPLAINT(S)
- Abdominal pain on the left side.
- Blood in stool.
HISTORY OF PRESENT ILLNESS
The patient is an 84-year-old female from [facility] presenting with left-sided abdominal pain and blood in the stool. The patient reports an increase in fatigue, feeling more wiped out than usual today. She denies having had bloody bowel movements
prior to today. The patient also reports experiencing chest pain and shortness of breath.
The patient recently underwent surgical removal of a mass from the colon on January 19, open colectomy (partial), no ostomy. The pathology results for the mass have not yet been returned. She has been staying at [facility] until today and
was brought to the emergency department. Pain in the abdomen was not present continuously and has only become more prominent today.
She reports a history of kidney cancer for which she underwent nephrectomy of one kidney; the cancer was discovered incidentally. The patient is currently under hormone therapy for another non-specified cancer and has not undergone surgical
treatment for it. She is on anticoagulant therapy.
PAST MEDICAL AND SURIGICAL HISTORY
- Previous nephrectomy due to kidney cancer.
- Recent colon surgery for mass removal.
SOCIAL DETERMINANTS AFFECTING HEALTH
Per the patient, a friend has power of attorney recruiter for her medical decisions, and she has expressed that she does not wish to undergo resuscitation should her heart stop.
ALLERGIES
- Possible allergy to intravenous contrast.
REVIEW OF SYSTEMS
- Gastrointestinal: Abdominal pain, blood in stool.
- Respiratory: Chest pain, shortness of breath.
- General: Increased fatigue, pallor noted on examination.
PHYSICAL EXAM
GENERAL: Alert , in no apparent distress, weak and pale
EYE: pupils equal and reactive
NECK: Supple
ENT: o/p clr, mmm.
CARDIAC: Regular rate and rhythm . Moderate edema in bilateral lower extremities
LUNGS: Clear breath sounds bilaterally, no acute respiratory distress, no wheezes/rales/rhonchi
ABDOMEN: Soft, midline incision with carol, close, no cellulitis mild to moderate lower abdominal tenderness, no r/g, no cvat, normal bowel sounds
External hemorrhoids nonbleeding, patient has melena not actively oozing but in her diaper and in her vault, no clots
NEUROLOGICAL: Alert and oriented, no focal neuro deficits
SKIN: Warm and dry, skin intact. Pale
MUSCULOSKELETAL: Moderate edema, well perfused. neg sheri's sign
PSYCH: Normal and appropriate interaction.
Nursing notes reviewed and vital signs reviewed.
PROBLEM LIST
Acute:
- Gastrointestinal bleeding
- Abdominal pain
Chronic:
- History of kidney cancer
- Current cancer on hormone therapy
- Anticoagulant therapy
PLAN
- Admission to the hospital for further evaluation and management.
- Computed tomography scan of the abdomen to assess intra-abdominal pathology.
- Continuation of communication with patients power of attorney recruiter.
DIFFERENTIAL DIAGNOSIS
The Differential Diagnosis includes, in no particular order and is not limited to:
- Gastrointestinal bleeding due to hemorrhoids
- Colonic mass or malignancy
- Diverticulosis
- Ulcerative colitis
- Crohns disease
- Peptic ulcer disease
- Angiodysplasia
- Ischemic colitis
- Rectal varices
- Medication-related bleeding (from anticoagulants
)
84 y/[facility] F [facility], had partial colectomy dr. webster 01/19 for colon mass (path not back), on lovenox, asa and plavix
from [facility]
lower abd pain and rectal bleeding today, x 3 (unclear volume)
mixed with stool x 2 (bright red per staff)
maroon in her diaper (small amountt) and in her vault
tender lower abd, incision closed
hg slowly downtrending post op 9.7
stable bp
ct without IV contrast because she has had nephrectomy, nothing actue
lactate normal
General surgery aware, he did see her and felt that the patient probably just had oozing from the anastomosis. They recommended holding Lovenox and Plavix, admit hospitalist
<Bridgette Devine PA-C - Last Filed: 01/28/25 17:31>
*Pulse Oximetry
SaO2: 95
Oxygen Mode of Delivery: Room air
Patient hypoxic: no (97)
*Critical Care Note
Total Time (30-74mins, 75-104mins- exclusive of procedures): Not Applicable
ED Attending Note
<Bridgette Devine PA-C - Last Filed: 01/28/25 17:31>
-
Portions of this chart may have been created with voice recognition software.� Occasional wrong word or��sound alike� substitutions may have occurred due to the inherent limitations of voice recognition software.
<Gabriel Arguelles MD - Last Filed: 01/28/25 12:02>
ED Attending Note
Patient seen and examined by attending physician: Yes
ED Attending Note:
Patient's status post recent partial colectomy secondary to colonic mass, presents to ED secondary to persistent abdominal pain, associated with bloody diarrhea over the past 24 hours. Denies fever or chills. Denies nausea or vomiting. Denies
trauma. Denies dizziness. Denies weakness. Denies shortness of breath. Denies recent change in medications or diet.
Physical Exam
General: no apparent distress, not acutely ill. afebrile. weak appearing
Head: nc/at. eomi
Neck: supple. normal range of motion.
Heart: s1/s2 regular rate and rhythm
Lungs: no acute respiratory distress. clear bilaterally
Abdomen: normal bowel sounds. mild diffuse lower abdominal tenderness to palpation
Neuro: alert and oriented x 3. no focal neurological deficits
Skin: no rash
Psychiatric: well kept. interactive and cooperative
Extremities: no edema. no calf tenderness.
H&H noted. CT abdomen pelvis report reviewed and discussed with patient. Patient will be admitted for further evaluation and treatment. Colorectal surgery () notified via tigertext
Discharge Plan
Departure
Patient Disposition: Admit
Date of Disposition: 01/28/25
Time of Disposition: 11:20
Admit to: Med/Surg
Presentation/result/management discussed w/ accepting MD/DO: Hospitalist
Condition: Fair
Covid-19: Not Applicable
Discharge Problem:
Rectal bleed
Interventions
Interventions:
*Risk Screen - Suicide Last Done: 01/28/25 15:59
*General Assessment Last Done: 01/28/25 09:51
*Neglect/Abuse Screening Last Done: 01/28/25 09:51
*ED- Fall Risk Assessment Last Done: 01/28/25 09:51
*ED COVID-19 Vaccine History Last Done: 01/28/25 15:19
*ED Influenza Vaccine History Last Done: 01/28/25 15:19
*Nursing Disposition Last Done: 01/28/25 14:25
EJ-Kxqfba-Fzxxaybwqp Assessment Last Done: 01/28/25 09:51
ED- Cardiac Assessment Last Done: 01/28/25 09:51
ED- Pulmonary Assessment Last Done: 01/28/25 09:51
Discharge Date and Time
Discharge Date/Time: 01/28/25 15:20
[2025-01-28 11:07] LABS: Estimated Creatinine Clearance 50 ml/min; Total Protein 5.5 g/dl (6.3-8.2); eGFR > 60.00
[2025-01-28 11:24] LABS: Troponin I 0.036 ng/ml
--- NOTE | 2025-01-28 11:45 | HPS.HSE ---
Addendum entered and electronically signed by Liz Mcguire MD 01/28/25 13:24:
see update note for addendum
Original Note:
Family Physician
-
Family Physician: Lashawn Finnegan MD
Chief Complaint
-
Rectal bleed
History of Present Illness
84-year-old female with past medical history of hypertension, diabetes, CVA, hyperlipidemia, polio, urinary retention, metastatic breast cancer, colon cancer s/p open partial colectomy (transverse colon, takedown of splenic flexure, lysis of
additions 01/19/2025), presenting [facility] ER [facility] after she had bloody bowel movements. Patient reports having 2 episodes of bleeding per rectum in the morning today, not associated with lightheadedness/dizziness, syncopal episodes.
Patient reports having worsening generalized fatigue than usual today. Patient has ongoing chronic abdominal pain from the surgery, does not report any worsening of the pain. Patient denies chest pain, shortness of breath, hematemesis,
fever/chills. She reports a history of kidney cancer for which she underwent nephrectomy of one kidney; the cancer was discovered incidentally.
Patient reports that she took all her medications in the morning today.
ED course�vitals stable, afebrile. Hemoglobin 9.7, WBC 18.7, sodium 128, glucose 262, lactate 1.4, troponins�0.036,
CT abdomen pelvis without contrast�No significant acute abnormality identified in the abdomen or pelvis, within the limits of unenhanced CT. Interval partial colectomy change without overt CT evidence for residual/recurrent or new/active metastatic
disease in the abdomen or pelvis.
Medical History
Past Medical History
Past Medical History: Reports Other (hypertension, diabetes, CVA, hyperlipidemia, polio, urinary retention, metastatic breast cancer, colon cancer s/p open partial colectomy 01/19/2025, polio, pheochromocytoma, asthma)
Past Surgical History: Reports Bowel Resection and Other (Mastectomy, nephrectomy)
Social History
Tobacco: Non-smoker
Alcohol: None
Drug: None
Personal: Single
Living: With Roomate
Employment: Retired
Family History
Family History: Other (Dad-heart disease, leukemia, brother and sisters-both dad but unsure of health issues.)
Allergies / Home Medications
Allergies reflects when Allergies were last updated in [facility].
Home Medications with original date entered in [facility]
Allergy/Medication List:
Allergies
Allergy/AdvReac Type Severity Reaction Status Date / Time
codeine Allergy Unknown Verified 01/28/25 09:47
latex Allergy Unknown Verified 01/28/25 09:47
pentazocine Allergy Pt does Verified 01/28/25 09:47
not know
if this is
an allergy
Home Medications
aspirin 81 mg chewable tablet 81 mg PO DAILY 30 days #30 tabs 06/23/21
docusate sodium 100 mg capsule 100 mg PO BIDPRN PRN constipation 30 days #60 caps 06/23/21
amlodipine 5 mg tablet (Norvasc) 5 mg PO DAILY Blood Pressure 01/28/25
atorvastatin 20 mg tablet 20 mg PO QPM High Cholesterol 01/28/25
clopidogrel 75 mg tablet 75 mg PO DAILY Blood Clot Prevention/Tx 01/28/25
letrozole 2.5 mg tablet 2.5 mg PO DAILY Hormonal Agent 01/28/25
metformin 1,000 mg tablet 1,000 mg PO BID Diabetes 01/28/25
Review of Systems
-
A 12 point ROS was completed and negative except as noted: Yes
Physical Exam
Vital Signs
Vital Signs
Temp Pulse Resp BP Pulse Ox
98.1 F 81 14 130/63 96
01/28/25 09:40 01/28/25 11:30 01/28/25 11:30 01/28/25 11:30 01/28/25 11:30
Physical Exam
General: No Apparent Distress
HEENT: NormoCephalic and Atraumatic
Respiratory: Clear
Cardiac: S1/S2 and Regular Rhythm
GI: Soft, Normal Bowel Sounds and Other (Incision with intact carol, no erythema/purulent drainage noted. Mild tenderness to palpation)
Rectal: Hemorrhoids and Other (Dark red blood, no active bleeding noted)
Skin: Warm and Dry
Neuro: Awake, Alert, Oriented, AO x 3 and Nonfocal/grossly intact
Psych: Calm
Laboratory Results
-
01/28/25 09:50
01/28/25 09:50
Laboratory Results
PT 13.6 Sec (11.4-14.6) 01/28/25 09:50
INR 1.01 01/28/25 09:50
APTT 35.3 Sec (23.4-35.0) H 01/28/25 09:50
Lactic Acid 1.4 mmol/L (0.7-2.0) 01/28/25 10:37
Total Bilirubin 0.5 mg/dl (0.2-1.3) 01/28/25 09:50
AST 33 U/L (14-36) 01/28/25 09:50
ALT 26 U/L (0-35) 01/28/25 09:50
Alkaline Phosphatase 97 U/L (38-126) 01/28/25 09:50
Troponin I 0.036 ng/ml H* 01/28/25 10:37
Impression/Plan
-
IMPRESSION:
84-year-old female with past medical history of hypertension, diabetes, CVA, hyperlipidemia, polio, urinary retention, metastatic breast cancer, asthma, pheochromocytoma, colon cancer s/p open partial colectomy (transverse colon, takedown of splenic
flexure, lysis of additions 01/19/2025), presenting to the ER from [facility] for evaluation of bleeding per rectum.
PLAN:
#Lower GI bleed
Likely from subacute/chronic GI bleeding from the malignancy/surgery, versus hemorrhoids.
Source unclear from imaging, patient did not undergo contrast CT
Hemoglobin 9.7, baseline at around 11, slowly downtrending since surgery
Patient on Lovenox at [facility]
Will hold Lovenox
Will consult GI
Will consult colorectal
Protonix IV once daily
Platelets�481
Patient on antiplatelet therapy for CVA- aspirin, clopidogrel (start date 01/26/2025)
Will consult neuro
Continue aspirin for now, hold clopidogrel
Monitor hemoglobin
Will do clears for now
#Elevated troponins
0.036
EKG�no evidence of STEMI, patient does not have any chest pain
No prior troponin levels to compare
Will trend troponin to peak
Consider cardiology consult as needed
#Breast cancer
S/p left sided mastectomy
Continue letrozole
#Diabetes type 2
Continue metformin
Add SSI
#Hyperlipidemia
Continue atorvastatin
#History of CVA
No neurological deficits
Consult neuro for antiplatelet recommendation
Will hold Plavix for now, can continue aspirin
Will continue atorvastatin
#Hypertension
Continue amlodipine
DVT prophylaxis�SCDs
Diet clears
DNR
[2025-01-28] MEDS: NSS 500 IV (11:46)
[2025-01-28] MEDS: PROTONIX IV 40 MG IV ×2 (11:46→17:45)
[2025-01-28] MEDS: MORPHINE SULFATE 2 MG IV (11:46)
--- NOTE | 2025-01-28 12:01 | CON.CRS ---
Consultation
-
Date/Time Consultation Requested: 01/28/2025, 11:00
Date/Time Consultation Performed: 01/28/2025, 12:00
Requesting Provider: Bridgette Devine
Performing Provider: Srikanth Ruff MD
Reason for Consultation: rectal bleeding
Medical History
-
Chief Complaint: rectal bleeding
History of Present Illness:
84-year-old female, discharged under the [facility] 2 days ago after undergoing a transverse colectomy secondary to a colon mass, presents today to the ER from [facility] due to rectal bleeding. Initially the patient had been admitted on
01/10/2025 due to leukocytosis prior to surgery. Her initial workup, which included infectious disease consultation, was all negative. She then presented back to the hospital on 01/18/2025 where she underwent a bowel prep and subsequently a
colonoscopy. On 01/19/2025 she underwent a transverse colectomy with an anastomosis. She had tolerated the procedure well. However within the next several days she developed a stroke and was started on aspirin and Plavix. She was found with
expressive aphasia which has almost resolved. 2 days ago she was discharged to [facility] after clearance from the medical service and neurology. She was discharged on aspirin and Plavix. While at the rehab she was started on Lovenox for DVT
prophylaxis. She developed bright red blood in her stool this morning. She also complains of some lower abdominal pain. CT of the abdomen pelvis performed in the emergency room did not show any acute pathology. Her hemoglobin is 9.7 from 9.9
yesterday. On the day she was discharged her hemoglobin was 10.3. Her vitals are normal. Her white blood cell count is 18.7 from 14.9. Given her history, we have been consulted for further surgical opinion.
Past Medical History
Past Medical History: Other (1. Hypertension. 2. Diabetes. 3. Polio. 4. Metastatic breast cancer)
Past Surgical History: Other (TAHBSO and cholecystectomy and appendectomy, sigmoidectomy, knee surgery)
Social History
Tobacco: Non-Smoker
Alcohol: None
Employment: Not Employed
Allergies / Home Medications
Allergy/AdvReac Type Severity Reaction Status Date / Time
codeine Allergy Unknown Verified 01/28/25 09:47
latex Allergy Unknown Verified 01/28/25 09:47
pentazocine Allergy Pt does Verified 01/28/25 09:47
not know
if this is
an allergy
�Medication �Instructions �Recorded �Confirmed �Type
aspirin 81 mg chewable tablet 81 mg PO DAILY 30 days #30 tabs 06/23/21 01/26/25 Rx
docusate sodium 100 mg capsule 100 mg PO BIDPRN PRN constipation 06/23/21 01/26/25 Rx
30 days #60 caps
letrozole 2.5 mg tablet 2.5 mg PO DAILY 30 days #30 tabs 06/23/21 01/26/25 Rx
metformin 500 mg tablet 500 mg PO BID Diabetes 01/09/25 01/26/25 History
amlodipine 2.5 mg tablet 2.5 mg PO BID Blood Pressure 01/17/25 01/26/25 History
atorvastatin 20 mg tablet 40 mg (2 x 20 mg) PO QPM #30 tabs 01/26/25 01/26/25 Rx
clopidogrel 75 mg tablet 75 mg PO DAILY 21 days #21 tabs 01/26/25 01/26/25 Rx
Review of Systems
-
History Source: Patient
Abdomen/GI: Abdominal Pain and Bloody Stools
A 10 point review of systems was completed, and was negative except as per HPI.
Physical Exam
Vital Signs
Temp 98.1 F 01/28/25 09:40
Pulse 82 01/28/25 11:45
Resp Rate 17 01/28/25 11:45
Blood pressure 130/63 01/28/25 11:30
SaO2 96 01/28/25 11:45
01/27/25 01/28/25 01/29/25
06:59 06:59 06:59
Actual Weight 75.1 kg
Body Mass Index (BMI) 29.3
Lab Results / Allergies
01/28/25 09:50
01/28/25 09:50
WBC 18.7 10^3/uL (4.8-10.8) H 01/28/25 09:50
Hgb 9.7 g/dL (12.0-16.0) L 01/28/25 09:50
Hct 29.2 % (37.0-47.0) L 01/28/25 09:50
Plt Count 481 10^3/uL (130-400) H D 01/28/25 09:50
Abs Immat Gran (auto) 0.2 10^3/uL (0-0.05) H 01/28/25 09:50
Neutrophils % 75.3 % (42.2-75.2) H 01/28/25 09:50
Allergy/AdvReac Type Severity Reaction Status Date / Time
codeine Allergy Unknown Verified 01/28/25 09:47
latex Allergy Unknown Verified 01/28/25 09:47
pentazocine Allergy Pt does Verified 01/28/25 09:47
not know
if this is
an allergy
Physical Exam
General: Well Developed, Well Nourished and No Apparent Distress
GI: Tender (mild b/l)
Rectal: Other (RONALD: no stool in rectal vault, dark red spotting of blood in finger, normal tone)
Neuro: AO x 3
Psych: Calm
Data Reviewed
-
CT Scan: Image Personally Visualized and interpreted, Report Reviewed by me and Discussed with Patient
Labs: Labs Reviewed by me, Discussed with Physician and Discussed with Patient
Old Records: Reviewed
Assessment / Plan
-
Assessment: 84-year-old female, discharged under the [facility] 2 days ago after undergoing a transverse colectomy secondary to a colon mass, presents today to the ER from [facility] due to rectal bleeding, no acute pathology on CT
Plan:
-No plans for surgery at this time
-Okay for aspirin, hold Plavix/Lovenox
-Okay for a clear liquid diet
-Monitor labs - hgb/wbc
-OKay to start other home medications
-OR pathology pending
-Will follow
--- NOTE | 2025-01-28 12:55 | W.PN.UPDATE ---
Update Note
Progress Note Update
I have personally supervised the history, physical exam, medical decision-making, and care plan for this patient in conjunction with the�resident. I have reviewed and discussed the�resident�s documentation and findings. I confirm that this note
accurately reflects my supervision and input in the care of this patient.
Briefly, 84 y/o F with hx of HTN, DM, metastatic breast cancer, HLD, recent hospitalization for transverse colon mass s/p resection, course complicated by acute cerebellar CVA placed on DAPT therapy, presents from [facility] with acute LGIB today. 2
episodes. Patient reports chronic abd pain, no new pain. CT Abdomen in ER negative. upon discussion with surgery, plan is for admission to medical service, holding Plavix, continue ASA. Add PPI. consult Neurology given recent CVA. PT/OT when safe.
Exam:
General: No Apparent Distress
HEENT: Normocephalic and Atraumatic
Respiratory: Negative Wheezes
Cardiac: Regular Rhythm and S1/S2
GI: Soft and Nontender. Rectal deferred.
Musculoskeletal: No Edema
Neuro: AO x 3
Psych: Calm
Assessment:
Lower GI bleed
- likely exacerbated by ASA/Plavix/Lovenox combo at Rehab
- add PPI
- monitor Hb and bleeding progression
- hold off GI consult unless brisk bleeding/active hemorrhage, would involve IR indicated.
Recent acute L cerebellar CVA
- stop Plavix; continue ASA/Statin
- Neuro evaluation for re-evaluation of DAPT regimen in setting of GI bleed
- PT/OT
Leukocytosis, persistent
- recent UA/CXR/dopplers negative
- no fevers
- if febrile, repeat panculture and consider empiric antibiotics
Urinary retention
- continue FOL[employer] Lee; void trial as indicated maybe in 48 hours
Transverse colon mas
- s/p open partial colectomy (portion of transverse colon), takedown of splenic flexure, and lysis of adhesions on 01/19/25
- tolerating diet
- CRS consulted
Hyponatremia - follow
DM2: a1c 8.6%, continue Lantus/SSI. Diabetic diet.
Essential HTN: Norvasc
h/o metastatic breast cancer: Letrozole
HLD: statin
DVT ppx: SCDs
Code: DNR/DNI - confirmed on admission
--- NOTE | 2025-01-28 14:28 | CON.NEURO ---
Neuro Assessment/Plan
Assessment
#Recent L cerebellar infarct and small infarct near right lateral ventricle on DAPT c/b GI bleeding
- consult for DAPT management
Plan
- Hold antiplatelets as necessary for GI bleeding. The risk of stroke is increased with stopping antiplatelets, but concurrent use of antiplatelets with active bleeding causes increased risk of more bleedings. Risks and benefits must be weighed
based on clinical condition
Consultation
Order
Date of Consultation: 01/28/25
Requesting Provider:
Reason for Consult: stroke management
Subjective/Objective
Subjective Data
Date of Service: January 28, 2025
HPI: 84-year-old female with PMH of HTN, T2DM, recent L cerebellar CVA 01/26/25 on DAPT HLD, Polio, urinary retention, metastatic breast cancer, colon cancer s/p open partial colectomy 01/19/25 presenting from rehab for bloody bowel movements.
Neurology consulted for DAPT management. She was recently discharged from after having a CVA. At rehab, she had a bloody bowel movement and brought to for further evaluation. She's had 2 episodes of bleeding per rectum. Denies focal weakness,
dizziness, visual disturbances, syncope, numbness.
Past Medical History: hypertension, diabetes, CVA, hyperlipidemia, polio, urinary retention, metastatic breast cancer, colon cancer s/p open partial colectomy 01/19/2025, polio, pheochromocytoma, asthma
Past Surgical History: Mastectomy, nephrectomy, open partial colectomy 01/19/25
FH: Unclear if she has FH of stroke
Allergies: Per chart
Meds: per chart
Social History
Tobacco: Non-smoker
Alcohol: None
Drug: None
Objective Data
Vital Signs
Temp Pulse Resp BP Pulse Ox
36.7 C 71 12 150/60 96
01/28/25 09:40 01/28/25 14:15 01/28/25 14:15 01/28/25 14:00 01/28/25 14:15
Lab Results
01/28/25 09:50
01/28/25 09:50
PT 13.6 Sec (11.4-14.6) 01/28/25 09:50
INR 1.01 01/28/25 09:50
APTT 35.3 Sec (23.4-35.0) H 01/28/25 09:50
Sodium 128 mmol/L (135-145) L 01/28/25:50
Potassium 4.1 mmol/L (3.5-5.1) 01/28/25:50
BUN 17 mg/dl (7-17) 01/28/25:50
Glucose 262 mg/dl (70-99) H 01/28/25:50
Calcium 8.9 mg/dl (8.4-10.2) 01/28/25:50
Patient Allergies
codeine Allergy (Verified 01/28/25 09:47)
Unknown
latex Allergy (Verified 01/28/25 09:47)
Unknown
pentazocine Allergy (Verified 01/28/25 09:47)
Pt does not know if this is an allergy
Physical Exam
-
General: Well Developed, Well Nourished and No Apparent Distress
Eyes: Unremarkable
HEENT: Normocephalic, Atraumatic and Anicteric
Respiratory: Clear to Auscultation
Cardiac: Regular Rhythm
GI: Normal Bowel Sounds
Skin: Other (multiple ecchymoses on exposed skin)
Extremities: No Clubbing
Extended Neurological Exam
Mood & Affect: Mood Unremarkable and Affect Unremarkable
Attention Span & Concentration: Awake, Alert, Interactive and Mild Difficulty with 2 Step Request
Memory: Unable to Recall (0/3 on delayed recall)
Tremor: Hand Tremor Absent
Involuntary Movement: None
Speech: Quality Unremarkable, Quantity Unremarkable and Rate of Production Unremarkable
Cranial Nerve II: Left Eye: Pupillary Reactivity Unremarkable and Visual Dill Intact
Cranial Nerve II: Right Eye: Pupillary Reactivity Unremarkable and Visual Dill Intact
Cranial Nerves III, IV, : Extraocular Movement: Extraocular Movement Full in all Directions and No Ptosis
Cranial Nerve VII: Facial Symmetry: Normal Facial Symmetry
Cranial Nerve VIII: Hearing: Unremarkable Hearing to Normal Conversational Volume
Cranial Nerves IX, X: Palate Movement: Palate Elevation Symmetric
Cranial Nerve XI: Shoulder Shrug: Unremarkable
Cranial Nerve XII: Tongue Protusion: Midline
Muscle Strength, Overall: Other (Full in upper extremities. Had pain in examining lower extremities. Both were at least antigravity and symmetric. States that pain was from polio. )
Muscle Bulk & Tone: Bulk Unremarkable and Tone Unremarkable
Deep Tendon Reflexes: Unremarkable Throughout
Touch Sensation: Unremarkable
Coordination: [id number] Testing Unremarkable
Data Reviewed
-
MRI Head: Image Reviewed (acute infarction left cerebellar hemisphere. small punctate acute stroke in right parietal lobe near lateral ventricle.)
Medications
-
Home Medications
�Medication �Instructions �Recorded
aspirin 81 mg chewable tablet 81 mg PO DAILY 30 days #30 tabs 06/23/21
docusate sodium 100 mg capsule 100 mg PO BIDPRN PRN constipation 06/23/21
30 days #60 caps
amlodipine 5 mg tablet (Norvasc) 5 mg PO DAILY Blood Pressure 01/28/25
atorvastatin 20 mg tablet 20 mg PO QPM High Cholesterol 01/28/25
clopidogrel 75 mg tablet 75 mg PO DAILY Blood Clot 01/28/25
Prevention/Tx
letrozole 2.5 mg tablet 2.5 mg PO DAILY Hormonal Agent 01/28/25
metformin 1,000 mg tablet 1,000 mg PO BID Diabetes 01/28/25
--- NOTE | 2025-01-28 15:32 | CM ---
Patient seen at bedside in ED. Patient states that she lives alone in a one story home with one step to enter. patient was driving and independent of adl's prior to admission patient has 13 children. Patient stated that he plan is to return to home
with family supports. Patient PCP is Dr. Finnegan, and she uses the [facility] on [address]. CM will continue to follow for discharge planning needs.
Plan; home with VN vs home with no needs.
[2025-01-28] MEDS: LIPITOR 20 MG PO (17:45)
--- NOTE | 2025-01-28 18:17 | PTCARENOTE ---
The patient was admitted to the floor. VSS afebrile. pt denied any pain. pt oriented to unit. bed alarm on fall risk due to recent fall. yellow sign at door and braclet on . PT has LUE restriction, sp, pt has made no attempts to get out of bed. 4
attempts at blood draws by two different people were attempted. PT is refusing any more labs at this time we can only use right arm. I did contact and he asked us to reattempt at 8 pm
[2025-01-28] MEDS: GLUCOPHAGE 1000 MG PO (20:45)
[2025-01-28 20:58] LABS: Glucose - Point of Care 254 mg/dl (70-99)
[2025-01-28 21:09] LABS: Hematocrit 24.0 % (37.0-47.0); Hemoglobin 8.1 g/dL (12.0-16.0)
[2025-01-28 21:51] LABS: Troponin I 0.024 ng/ml
[2025-01-29] VITALS (14 sets, daily range): BP systolic 102–165; BP diastolic 51–70; PULSE 93–115; BMI 28.5
[2025-01-29 04:03] LABS: Hematocrit 22.4 % (37.0-47.0); Hemoglobin 7.7 g/dL (12.0-16.0); Mean Corp Hgb Conc. 34.4 g/dL (33.0-37.0); Mean Corpuscular Volume 87.8 fL (81.0-99.0); Nucleated Red Blood Cells % 0 %; Platelet Count 374 10^3/uL (130-400); Red Cell Dist. Width 13.2 % (11.5-14.5)
--- NOTE | 2025-01-29 04:05 | W.PN.UPDATE ---
Update Note
Progress Note Update
-hgb level is trending down gradually, hgb is 9.7 on admission ---->8.1 after 12 hrs and 7.7 this morning.
-Patient had dark bm that mixed with blood clots last night. Vital signs within normal level. Plavix/Lovenox currently on hold.
-Will monitor vital signs, check h&h q 6hrs, and transfuse as needed.
[2025-01-29 04:18] LABS: ALT (SGPT) 21 U/L (0-35); AST (SGOT) 25 U/L (14-36); Albumin 2.4 g/dl (3.5-5.0); Alkaline Phosphatase 74 U/L (38-126); Blood Urea Nitrogen 14 mg/dl (7-17); Calcium 8.5 mg/dl (8.4-10.2); Carbon Dioxide 23 mmol/L (22-30); Chloride 105 mmol/L (98-107); Estimated Creatinine Clearance 56 ml/min; Glucose 148 mg/dl (70-99); Potassium 4.0 mmol/L (3.5-5.1); Sodium 130 mmol/L (135-145); Total Protein 4.8 g/dl (6.3-8.2); eGFR > 60.00
[2025-01-29 04:29] LABS: Troponin I 0.020 ng/ml
--- NOTE | 2025-01-29 04:41 | PTCARENOTE ---
Pt had a bowel movement appearing dark with blood clots. Labs drawn, Hgb-8.1. Rechecked labs, Hgb-7.7. VS stable throughout the night, pt asymptomatic. [employer]MBRELLA CUTTER notified. Order placed for Q6 H&H. 2 IV accesses placed. Will monitor for any drop in BP.
--- NOTE | 2025-01-29 06:25 | PTCARENOTE ---
Oral care was not performed on patient because she stated it was her preference to do it in the morning.
[2025-01-29] MEDS: NORVASC 5 MG PO (08:10)
[2025-01-29] MEDS: FEMARA 2.5 MG PO (08:10)
[2025-01-29] MEDS: LOW STRENGTH ASPIRIN 81 MG PO (08:11)
[2025-01-29] MEDS: PROTONIX IV 40 MG IV (08:12)
[2025-01-29] MEDS: NSS (PRESERVATIVE FREE) 10 ML IV (08:13)
[2025-01-29 08:18] LABS: Glucose - Point of Care 178 mg/dl (70-99)
[2025-01-29] MEDS: GLUCOPHAGE 1000 MG PO ×2 (08:18→20:57)
[2025-01-29] MEDS: NOVOLOG FLEXPEN-LOW RESISTANCE 1 UNITS SC ×2 (08:44→13:27)
--- NOTE | 2025-01-29 09:34 | W.PN.CRS1 ---
Today's Communication / Plan
-
keep on clears
transfusion per primary team
follow labs
Assessment/Plan
-
Assessment: 84-year-old female, discharged under the [facility] 2 days ago after undergoing a transverse colectomy secondary to a colon mass, presents today to the ER from [facility] due to rectal bleeding, no acute pathology on CT
Plan:
-No plans for surgery at this time
-Okay for aspirin, hold Plavix/Lovenox. Neurology following for recent CVA.
-Continue a clear liquid diet
-Continue to trend labs
-Discussed with hospitalist who will transfuse this AM
-OR pathology pending
-Will follow
Subjective Data
Subjective Data
Date of Service: January 29, 2025
Patient states she has a bloody bowel movement this morning. She is not dizzy. She has some mild abdominal pain. No nausea or vomiting.
Objective Data
-
Vital Signs
Temp Pulse Resp BP Pulse Ox
98.3 F 91 16 143/65 96
01/29/25 07:40 01/29/25 07:40 01/29/25 07:40 01/29/25 07:40 01/29/25 07:40
Intake & Output
01/28/25 01/29/25 01/30/25
06:59 06:59 06:59
Other:
Number of approximated LARGE 1
amounts of urine
Number of unmeasured liquid
stools
Rectum 1
Lab Results
01/29/25 03:31
Physical Exam
-
General: No Acute Distress and AOx3
Abdomen: Soft, Non Distended and Tender (mild lower quadrants)
Skin: Warm and Dry
Incision: Clear, Dry, Intact
[2025-01-29 09:52] LABS: Hematocrit 24.3 % (37.0-47.0); Hemoglobin 8.1 g/dL (12.0-16.0)
--- NOTE | 2025-01-29 09:58 | W.PN.HOSP.TC ---
Today's Communication/Plan
-
To give two units of blood
POA Mr. Knott is informed and agreeable to the plan
Assessment / Plan
Assessment / Plan
Physical Exam
General: No Apparent Distress
HEENT: NormoCephalic and Atraumatic
Respiratory: Clear
Cardiac: S1/S2 and Regular Rhythm
GI: Soft, Normal Bowel Sounds and Other (Incision with intact carol, no erythema/purulent drainage noted. Mild tenderness to palpation)
Rectal: Hemorrhoids and Other (Dark red blood, no active bleeding noted)
Skin: Warm and Dry
Neuro: Awake, Alert, Oriented, AO to self and surroundings,
Psych: Calm
84-year-old female with past medical history of hypertension, diabetes, CVA, hyperlipidemia, polio, urinary retention, metastatic breast cancer, asthma, pheochromocytoma, colon cancer s/p open partial colectomy (transverse colon, takedown of splenic
flexure, lysis of additions 01/19/2025), [facility] bleeding per rectum.
PLAN:
#Lower GI bleed
Likely from subacute/chronic GI bleeding exacerbated by use of Plavix & aspirin
Plavix on hold
Still with Melena but no active bleeding, no abd pain
d/w surgery, will give two units of RBCs. Consent signed by pt, POA agreed
c/w clear liquids
Monitor CBC in am
#Elevated troponin
Nonischemic myocardial injury secondary to anemia
No chest pain. EKG no acute ST elevation
#Hyponatremia
#Breast cancer
S/p left sided mastectomy
Continue letrozole
#Diabetes type 2
Continue metformin
Add SSI
#Hyperlipidemia
Continue atorvastatin
#History of CVA
Recent left cerebellar CVA. Started on dual antiplatelet therapy. Seen by neurologist. Risk of bleeding is higher with ongoing GI bleeding. Can hold antiplatelet therapy. Discussed with surgery, continue with aspirin for now
No neurological deficits
Continue atorvastatin
#Hypertension
Continue amlodipine
DVT prophylaxis�SCDs
Diet clears
DNR
Total time spent to see the patient, examine the patient, review data and lab results, discuss treatment plan with patient, nursing staff around 55 minutes
Anticipated Discharge: > 48 hours
Subjective/Interval History
-
Date of Service: January 29, 2025
Objective Data
-
Labs:
Laboratory Results
01/29/25 01/29/25 01/29/25
03:31 09:37 16:00
WBC 13.8 H
Hgb 7.7 L 8.1 L Pending
Hct 22.4 L 24.3 L Pending
Plt Count 374 D
Sodium 130 L
Potassium 4.0
Chloride 105
Carbon Dioxide 23
BUN 14
Creatinine 0.7
Glucose 148 H
Calcium 8.5
Total Bilirubin 0.3
AST 25
ALT 21
Alkaline Phosphatase 74
01/29/25
22:00
WBC
Hgb Pending
Hct Pending
Plt Count
Sodium
Potassium
Chloride
Carbon Dioxide
BUN
Creatinine
Glucose
Calcium
Total Bilirubin
AST
ALT
Alkaline Phosphatase
Vital Signs:
Vital Signs
Temp Pulse Resp BP Pulse Ox
98.3 F 91 16 143/65 96
01/29/25 07:40 01/29/25 07:40 01/29/25 07:40 01/29/25 07:40 01/29/25 07:40
[2025-01-29 12:02] LABS: Glucose - Point of Care 183 mg/dl (70-99)
--- NOTE | 2025-01-29 12:38 | W.DCSUMMARY ---
Discharge Summary
Discharge Data
Date of Admission: 01/09/25
Date of Discharge: 01/13/25
-
Pending Results: No
Hospital Course
84-year-old female presented to [facility] on 01/09/2025 for a direct admission for colonoscopy followed by surgery. However, on her lab work it showed an elevation of her white blood cell count of 14.9. The hospitalist and infectious
disease were both consulted. Her WBC continues to trend down and her temperature was normal. Due to these circumstances, ID decided to observe off antibiotics. She had asymptomatic bacteremia found on her UA. The patient was continually observed
off antibiotics. Chest x-ray and COVID were negative. Blood cultures are negative x 2. On day of discharge h WBC was 11.7. We determined the patient will come back the following Wednesday on 01/08/2025 for a repeat of the plan which included prep,
colonoscopy, with OR to follow. All discharge instructions discussed the patient including medications for those above. All questions were answered.
Discharge Plan
-
Referrals:
Lashawn Finnegan MD [Family Provider, Internal Medicine]
Prescriptions:
No Action
docusate sodium 100 MG capsule
100 mg PO BIDPRN PRN (Reason: constipation) 30 Days Qty: 60 0RF
Rx Instructions:
for 30 days
aspirin 81 MG tablet,chewable
81 mg PO DAILY 30 Days Qty: 30 0RF
Rx Instructions:
for 30 days
amlodipine [Norvasc] 5 mg Tablet
5 mg PO DAILY
metformin 1,000 mg Tablet
1,000 mg PO BID
atorvastatin 20 mg tablet
20 mg PO QPM
clopidogrel 75 mg tablet
75 mg PO DAILY
Rx Instructions:
for 21 days starting 01/26/25
letrozole 2.5 MG tablet
2.5 mg PO DAILY
Rx Instructions:
for 30 days
Discharge Date and Time
Print Language: BAHRAINI
[2025-01-29] MEDS: ULTRAM 50 MG PO (15:56)
[2025-01-29 17:36] LABS: Glucose - Point of Care 147 mg/dl (70-99)
[2025-01-29] MEDS: NOVOLOG FLEXPEN-LOW RESISTANCE SC (17:39)
[2025-01-29] MEDS: LIPITOR 20 MG PO (17:41)
[2025-01-29 20:52] LABS: Glucose - Point of Care 195 mg/dl (70-99)
[2025-01-29 21:46] LABS: Glucose - Point of Care 188 mg/dl (70-99)
[2025-01-30 01:15] LABS: Hemoglobin 11.0 g/dL (12.0-16.0)
[2025-01-30 03:00] VITALS: BP 164/101
[2025-01-30 04:23] VITALS: BMI 29.1
[2025-01-30 06:37] LABS: Hematocrit 31.1 % (37.0-47.0); Hemoglobin 10.7 g/dL (12.0-16.0); Mean Corp Hgb Conc. 34.4 g/dL (33.0-37.0); Mean Corpuscular Volume 87.1 fL (81.0-99.0); Platelet Count 358 10^3/uL (130-400); Red Cell Dist. Width 13.6 % (11.5-14.5)
[2025-01-30 07:12] LABS: Blood Urea Nitrogen 9 mg/dl (7-17); Calcium 8.6 mg/dl (8.4-10.2); Carbon Dioxide 27 mmol/L (22-30); Chloride 105 mmol/L (98-107); Estimated Creatinine Clearance 57 ml/min; Glucose 134 mg/dl (70-99); Potassium 4.3 mmol/L (3.5-5.1); Sodium 131 mmol/L (135-145); eGFR > 60.00
[2025-01-30 07:30] VITALS: BP 153/60
[2025-01-30 08:32] LABS: Glucose - Point of Care 158 mg/dl (70-99)
[2025-01-30 09:06] LABS: Nucleated Red Blood Cells % 0 %
[2025-01-30] MEDS: TOPROL XL 25 MG PO (09:13)
[2025-01-30] MEDS: GLUCOPHAGE PO (09:13)
[2025-01-30] MEDS: PROTONIX IV 40 MG IV (09:14)
[2025-01-30] MEDS: LOW STRENGTH ASPIRIN 81 MG PO (09:14)
[2025-01-30] MEDS: NSS (PRESERVATIVE FREE) 10 ML IV (09:14)
[2025-01-30] MEDS: NORVASC 5 MG PO (09:14)
[2025-01-30] MEDS: NOVOLOG FLEXPEN-LOW RESISTANCE 1 UNITS SC ×2 (09:14→18:03)
[2025-01-30] MEDS: FEMARA 2.5 MG PO (09:14)
--- NOTE | 2025-01-30 09:14 | CM ---
Addendum entered by Ayaka Strong 01/30/25 15:37:
Pending PT/OT assessment to confirm level of care needed. [facility] will confirm ability to accept.
Original Note:
Patient had been admitted to [facility] on 01/26 and transferred to on 01/28. called to [facility] [phone], left and requested therapy assessment.
--- NOTE | 2025-01-30 09:18 | W.PN.CRS1 ---
Today's Communication / Plan
-
Clears for now. Potential for advancement later today.
Recheck hemoglobin at noon.
Potential for Lovenox this evening.
Oncology consult.
Assessment/Plan
-
Patient's status post partial colectomy for colon tumor initially complicated by CVA and then readmitted for bloody BMs/presumably anastomotic blood.
1. looked good this morning. Vitals reasonable. Hemoglobin madison from 7.7 to 10.7 with 2 units of blood being transfused yesterday. Will recheck hemoglobin at noon. If no significant drop, will advance diet and likely order Lovenox for this
evening. Continue ASA for now.
2. clears for now.
3. Pathology back and came back stage III colon cancer. Consulting Dr. Calderón of oncology.
4. continue out of bed/PT/OT.
Subjective Data
Subjective Data
Date of Service: January 30, 2025
Denies pain. Denies nausea or vomiting.
Had a few BMs overnight. Does not know if there was blood. On discussion with nursing, there was still some trace blood but less dark than yesterday.
Objective Data
-
Vital Signs
Temp Pulse Resp BP Pulse Ox
98.2 F 78 16 153/60 94
01/30/25 07:30 01/30/25 07:30 01/30/25 07:30 01/30/25 07:30 01/30/25 07:30
Intake & Output
01/29/25 01/30/25 01/31/25
06:59 06:59 06:59
Intake Total 1949
Balance 1949
Intake:
Oral fluids 1200 / 1200
Blood products 250 / 250
Blood Product Amount Infused ( 500 / 500
mL)
Packed Rbc Leukoreduced Unit 250 / 250
[id number]
Packed Rbc Leukoreduced Unit 250 / 250
[id number]
Other:
Number of approximated MODERATE 2
amounts of urine
Number of approximated LARGE 1 3
amounts of urine
Number of unmeasured liquid
stools
Rectum 1
Lab Results
01/30/25 06:18
Physical Exam
-
General: No Acute Distress
Chest: Clear
Cardiovascular: Regular Rate & Rhythm
Abdomen: Soft, Non Distended and Non Tender
Neurological: No Motor Deficits and No Sensory Deficits
Incision: Clear, Dry, Intact and No Skin Erythema
--- NOTE | 2025-01-30 10:17 | W.PN.HOSP.TC ---
Today's Communication/Plan
-
NPO then clear , f/w surgery
Assessment / Plan
Assessment / Plan
Physical Exam
General: No Apparent Distress
HEENT: NormoCephalic and Atraumatic
Respiratory: Clear
Cardiac: S1/S2 and Regular Rhythm
GI: Soft, Normal Bowel Sounds and Other (Incision with intact carol, no erythema/purulent drainage noted. Mild tenderness to palpation)
Rectal: Hemorrhoids and Other (Dark red blood, no active bleeding noted)
Skin: Warm and Dry
Neuro: Awake, Alert, Oriented, AO to self and surroundings,
Psych: Calm
84-year-old female with past medical history of hypertension, diabetes, CVA, hyperlipidemia, polio, urinary retention, metastatic breast cancer, asthma, pheochromocytoma, colon cancer s/p open partial colectomy (transverse colon, takedown of splenic
flexure, lysis of additions 01/19/2025), [facility] of bleeding per rectum.
PLAN:
#Lower GI bleed
Likely from subacute/chronic GI bleeding exacerbated by use of Plavix & aspirin
Plavix on hold
Still with Melena, less frequent with stable hGB
No active bleeding, mild abd pain
Per surgery: Clears for now. Potential for advancement later today.
Monitor CBC afternoon
# stage IIIC colon cancer
seen by oncology, will f/w in office for adjuvant chemotherapy
I asked oncology to update pOA
#Elevated troponin
Nonischemic myocardial injury secondary to anemia
No chest pain. EKG no acute ST elevation
# acute on chronic blood loss anemia
s/p 2 units of RBCS 01/29
#Hyponatremia
#Breast cancer
S/p left sided mastectomy
Continue letrozole
#Diabetes type 2
Continue metformin
Add SSI
#Hyperlipidemia
Continue atorvastatin
#History of CVA
Recent left cerebellar CVA. Started on dual antiplatelet therapy. Seen by neurologist. Risk of bleeding is higher with ongoing GI bleeding. Can hold antiplatelet therapy. Discussed with surgery, continue with aspirin for now
No neurological deficits
Continue atorvastatin
#Hypertension
Continue amlodipine
DVT prophylaxis�SCDs
Diet clears
DNR
Total time spent to see the patient, examine the patient, review data and lab results, discuss treatment plan with patient, nursing staff around 55 minutes
Anticipated Discharge: > 48 hours
Subjective/Interval History
-
Date of Service: January 30, 2025
She reports abdominal discomfort
No chest pain
Objective Data
-
Labs:
Laboratory Results
01/29/25 01/30/25 01/30/25
23:26 06:18 12:00
WBC 15.9 H
Hgb 11.0 L D 10.7 L Pending
Hct 31.1 L
Plt Count 358
Sodium 131 L
Potassium 4.3
Chloride 105
Carbon Dioxide 27
BUN 9
Creatinine 0.7
Glucose 134 H
Calcium 8.6
Vital Signs:
Vital Signs
Temp Pulse Resp BP Pulse Ox
98.2 F 78 16 153/60 94
01/30/25 07:30 01/30/25 07:30 01/30/25 07:30 01/30/25 07:30 01/30/25 07:30
I&O
01/29/25 01/30/25 01/31/25
06:59 06:59 06:59
Intake Total 1949
Balance 1949
--- NOTE | 2025-01-30 10:42 | CON.ONC ---
Consultation
-
Date Consultation Requested: 01/30/25
Date Consultation Performed: 01/30/25
Requesting Provider: Dr Kulkarni
Performing Provider: Yanira Caldeórn
Reason for Consultation: colon cancer
Impression
Impression
Stage IIIC colorectal cancer, resected 01/19/25
Post op CVA, post op bleed from blood thinners
metastatic breast cancer (bone mets), under good control on letrozole
Poor social support
Plan
Plan
We discussed the diagnosis of stage IIIC colon cancer, for which adjuvant chemotherapy is often recommended to reduce the 5yr recurrence risk from about 50% to ~35%. However, based on her age, comorbidities (metastatic breast cancer, recent CVA) and
lack of psychosocial support, I think it's reasonable to forego adjuvant chemotherapy. She agrees.
If recurrence in the future, could consider oral Xeloda, which could also treat her metastatic breast cancer.
I'll arrange office f/u in the next month or two to confirm plans for surveillance alone.
Will sign off. Please call [facility] any questions.
Patient History
History of Present Illness
Ene is known to me for management of metastatic breast cancer (mets to bone), on letrozole for several years with stable disease. She underwent surveillance CT scans in 11/2024 which revealed findings suspicious for a primary colon cancer with
gwen involvement. I referred her to Dr. Kulkarni, and she underwent colon resection 01/19/25, showing pT4b pN2b cM0 (stage IIIc) colon cancer. Post-op, she suffered a CVA, from which she surprisingly recovered without sequelae. She was in [facility],
and developed rectal bleeding, likely from anticoagulation/antiplatelet therapy for the CVA, and was readmitted to .
Today she offers no complaints.
Past-Medical/Surgical History
PMH/PSH - as per the HPI
SH - she lives in a room in the house of a friend from [facility], in [place]. She's estranged from her family
Patient Medication
�Medication �Instructions �Recorded �Confirmed �Last Taken �Type
aspirin 81 mg chewable tablet 81 mg PO DAILY 30 days #30 tabs 06/23/21 01/28/25 01/08/25 08:00 Rx
docusate sodium 100 mg capsule 100 mg PO BIDPRN PRN constipation 06/23/21 01/28/25 Unknown Rx
30 days #60 caps
amlodipine 5 mg tablet (Norvasc) 5 mg PO DAILY Blood Pressure 01/28/25 01/28/25 Unknown History
atorvastatin 20 mg tablet 20 mg PO QPM High Cholesterol 01/28/25 01/28/25 Unknown History
clopidogrel 75 mg tablet 75 mg PO DAILY Blood Clot 01/28/25 01/28/25 Unknown History
Prevention/Tx
letrozole 2.5 mg tablet 2.5 mg PO DAILY Hormonal Agent 01/28/25 01/28/25 Unknown History
metformin 1,000 mg tablet 1,000 mg PO BID Diabetes 01/28/25 01/28/25 Unknown History
Active Medications
Generic Name Dose Route Start Last Admin
Trade Name Freq PRN Reason Stop Dose Admin
Acetaminophen 1,000 mg 01/29/25 09:48
Acetaminophen 500 Mg Tablet PO 02/26/25 09:47
Q6HPRN PRN
mild pain
Amlodipine Besylate 5 mg 01/29/25 08:00 01/30/25 09:14
Amlodipine 5 Mg Tablet PO 02/26/25 07:59 5 mg
DAILY BESS Administration
Aspirin 81 mg 01/29/25 08:00 01/30/25 09:14
Aspirin 81 Mg Chewable Tablet PO 02/26/25 07:59 81 mg
DAILY BESS Administration
Atorvastatin Calcium 20 mg 01/28/25 18:00 01/29/25 17:41
Atorvastatin (Lipitor) 20 Mg Tablet PO 02/25/25 17:59 20 mg
QPM BESS Administration
Dextrose 12.5 grams 01/28/25 22:00
Dextrose 50% (0.5 Grams/Ml) 50 Ml Syringe IV 02/25/25 21:59
[id number] PRN
hypoglycemia
Protocol
Docusate Sodium 100 mg 01/28/25 15:25
Docusate Sodium 100 Mg Capsule PO 02/25/25 15:24
BIDPRN PRN
constipation
Glucagon 1 mg 01/28/25 22:00
Glucagon 1 Mg Vial IM 02/25/25 21:59
PRN PRN
hypoglycemia - no IV access
Protocol
Insulin Aspart 0 units 01/29/25 07:30 01/30/25 09:14
Insulin Aspart Low Resistance 300 Units/3 Ml Pen.Injctr SC 02/26/25 07:29 1 units
AC BESS Administration
Protocol
Letrozole 2.5 mg 01/29/25 08:00 01/30/25 09:14
Letrozole 2.5 Mg (Non-Form) Tablet PO 02/26/25 07:59 2.5 mg
DAILY BESS Administration
Metformin HCl 1,000 mg 01/28/25 20:00 01/30/25 09:13
Metformin 1000 Mg Regular Release Tablet PO 02/25/25 19:59 Not Given
BID BESS
Metoprolol Succinate 25 mg 01/30/25 08:00 01/30/25 09:13
Metoprolol 25 Mg Extended Release Tablet PO 02/27/25 07:59 25 mg
DAILY BESS Administration
Pantoprazole Sodium 40 mg 01/28/25 15:25 01/30/25 09:14
Pantoprazole Sodium 40 Mg/10 Ml Vial IV 02/25/25 15:24 40 mg
DAILY BESS Administration
Sodium Chloride 10 ml 01/29/25 08:00 01/30/25 09:14
Sodium Chloride 0.9% (Preservative Free) 10 Ml Vial IV 02/26/25 07:59 10 ml
DAILY BESS Administration
Sodium Chloride 0 flush 01/28/25 22:00
Sodium Chloride 0.9% (Flush) Syringe IV 02/25/25 21:59
PER PROTOCOL BESS
Sodium Chloride 0 flush 01/28/25 22:00
Sodium Chloride 0.9% (Flush) Syringe IV 02/25/25 21:59
PER PROTOCOL BESS
Tramadol HCl 50 mg 01/29/25 09:48 01/29/25 15:56
Tramadol Hcl 50 Mg Tablet PO 02/26/25 09:47 50 mg
Q6HPRN PRN Administration
moderate pain
Review of Systems
-
All Other Systems: Not reviewed unless documented
Physical Exam
-
General: Well Developed, Well Nourished, No Apparent Distress and Comfortable
Labs
Lab Results
WBC 15.9 10^3/uL (4.8-10.8) H 01/30/25 06:18
RBC 3.57 10^6/uL (4.20-5.40) L 01/30/25 06:18
Hgb 10.7 g/dL (12.0-16.0) L 01/30/25 06:18
Hct 31.1 % (37.0-47.0) L 01/30/25 06:18
MCV 87.1 fL (81.0-99.0) 01/30/25 06:18
MCH 30.0 pg (27.0-31.0) 01/30/25 06:18
MCHC 34.4 g/dL (33.0-37.0) 01/30/25 06:18
RDW 13.6 % (11.5-14.5) 01/30/25 06:18
Plt Count 358 10^3/uL (130-400) 01/30/25 06:18
MPV 8.8 fL (7.4-10.4) 01/30/25 06:18
Abs Immat Gran (auto) 0.1 10^3/uL (0-0.05) H 01/30/25 06:18
Absolute Neuts (auto) 11.6 10^3/uL (1.4-6.5) H 01/30/25 06:18
Absolute Lymphs (auto) 1.9 10^3/uL (1.2-3.4) 01/30/25 06:18
Absolute Monos (auto) 1.7 10^3/uL (0.1-0.6) H 01/30/25 06:18
Absolute Eos (auto) 0.4 10^3/uL (0-0.7) 01/30/25 06:18
Absolute Basos (auto) 0.1 10^3/uL (0-0.2) 01/30/25 06:18
Immature Gran % 0.7 % (0-0.5) H 01/30/25 06:18
Neutrophils % 73.6 % (42.2-75.2) 01/30/25 06:18
Lymphocytes % 12.1 % (20.5-51.1) L 01/30/25 06:18
Monocytes % 10.7 % (1.7-9.3) H 01/30/25 06:18
Eosinophils % 2.5 % (0-6) 01/30/25 06:18
Basophils % 0.4 % (0-2) 01/30/25 06:18
Creatinine 0.7 mg/dL (0.6-1.0) 01/30/25 06:18
Vital Signs
Vital Signs
Temp Pulse Resp BP Pulse Ox
98.2 F 78 16 153/60 94
01/30/25 07:30 01/30/25 07:30 01/30/25 07:30 01/30/25 07:30 01/30/25 07:30
[2025-01-30 11:45] VITALS: BP 91/70
[2025-01-30 12:02] LABS: Hemoglobin 11.4 g/dL (12.0-16.0)
[2025-01-30 12:08] LABS: Glucose - Point of Care 141 mg/dl (70-99)
[2025-01-30] MEDS: NOVOLOG FLEXPEN-LOW RESISTANCE SC (12:11)
[2025-01-30 16:00] VITALS: BP 100/67
--- NOTE | 2025-01-30 17:04 | PTCARENOTE ---
pt with no active bleeding, no stools today, tolerating low residue diet, c/o mild tenderness at abd incision site. turns with assist x1, vss, will continue to monitor.
[2025-01-30 17:19] LABS: Glucose - Point of Care 178 mg/dl (70-99)
[2025-01-30] MEDS: LIPITOR 20 MG PO (18:00)
[2025-01-30] MEDS: LOVENOX 40 MG SC (18:00)
[2025-01-30 19:00] VITALS: BP 137/49
[2025-01-30 19:51] LABS: Glucose - Point of Care 216 mg/dl (70-99)
[2025-01-30] MEDS: GLUCOPHAGE 1000 MG PO (19:53)
[2025-01-30 23:00] VITALS: BP 166/68
[2025-01-31] VITALS (7 sets, daily range): BP systolic 119–168; BP diastolic 60–73; PULSE 69–82; O2SAT 96–97; BMI 27.7
--- NOTE | 2025-01-31 07:13 | W.PN.CRS1 ---
Today's Communication / Plan
-
Follow-up hemoglobin.
If stable, dispo as per primary team.
Assessment/Plan
-
Patient's status post partial colectomy for colon tumor initially complicated by CVA and then readmitted for bloody BMs/presumably anastomotic blood.
1. no evidence of active bleeding.
2. am labs pending
3. continue low residue diet
4. Pathology with stage III colon cancer. Dr. Calderón consulted.
5. continue out of bed/PT/OT.
6. continue SCD's and Lovenox for DVT prophylaxis
Subjective Data
Subjective Data
Date of Service: January 31, 2025
No overnight events. She has no complaints. Tolerating a low residue diet and no bowel movements overnight.
Objective Data
-
Vital Signs
Temp Pulse Resp BP Pulse Ox
99.1 F 74 16 146/66 95
01/31/25 03:00 01/31/25 03:00 01/31/25 03:00 01/31/25 03:00 01/31/25 03:00
Intake & Output
01/30/25 01/31/25 02/01/25
06:59 06:59 06:59
Intake Total 1949 720 / 720
Balance 1949 720 / 720
Intake:
Oral fluids 1200 / 1200 720 / 720
Blood products 250 / 250
Blood Product Amount Infused ( 500 / 500
mL)
Packed Rbc Leukoreduced Unit 250 / 250
[id number]
Packed Rbc Leukoreduced Unit 250 / 250
[id number]
Other:
Number of approximated MODERATE 2 4
amounts of urine
Number of approximated LARGE 3 1
amounts of urine
Physical Exam
-
General: No Acute Distress
Abdomen: Soft, Non Distended and Non Tender
Incision: Clear, Dry, Intact
[2025-01-31 08:38] LABS: Glucose - Point of Care 171 mg/dl (70-99)
[2025-01-31 08:51] LABS: Hematocrit 33.6 % (37.0-47.0); Hemoglobin 11.2 g/dL (12.0-16.0); Mean Corp Hgb Conc. 33.3 g/dL (33.0-37.0); Mean Corpuscular Volume 88.9 fL (81.0-99.0); Nucleated Red Blood Cells % 0 %; Platelet Count 401 10^3/uL (130-400); Red Cell Dist. Width 13.8 % (11.5-14.5)
[2025-01-31 09:46] LABS: Blood Urea Nitrogen 9 mg/dl (7-17); Calcium 8.7 mg/dl (8.4-10.2); Carbon Dioxide 25 mmol/L (22-30); Chloride 102 mmol/L (98-107); Estimated Creatinine Clearance 65 ml/min; Glucose 156 mg/dl (70-99); Potassium 4.3 mmol/L (3.5-5.1); Sodium 133 mmol/L (135-145); eGFR > 60.00
--- NOTE | 2025-01-31 10:03 | W.PN.HOSP.TC ---
Today's Communication/Plan
-
dc
Assessment / Plan
Assessment / Plan
Physical Exam
General: No Apparent Distress
HEENT: NormoCephalic and Atraumatic
Respiratory: Clear
Cardiac: S1/S2 and Regular Rhythm
GI: Soft, Normal Bowel Sounds and Other (Incision with intact carol, no erythema/purulent drainage noted. Mild tenderness to palpation)
Rectal: Hemorrhoids and Other (Dark red blood, no active bleeding noted)
Skin: Warm and Dry
Neuro: Awake, Alert, Oriented, AO to self and surroundings,
Psych: Calm
84-year-old female with past medical history of hypertension, diabetes, CVA, hyperlipidemia, polio, urinary retention, metastatic breast cancer, asthma, pheochromocytoma, colon cancer s/p open partial colectomy (transverse colon, takedown of splenic
flexure, lysis of additions 01/19/2025), [facility] of bleeding per rectum.
PLAN:
#Lower GI bleed
Likely from subacute/chronic GI bleeding exacerbated by use of Plavix & aspirin
Plavix on hold
Stable HGB
No active bleeding, mild abd pain
Per surgery: ok to dc, on LRD
Monitor CBC afternoon
# stage IIIC colon cancer
seen by oncology, will f/w in office for adjuvant chemotherapy
I updated POA
#Elevated troponin
Nonischemic myocardial injury secondary to anemia
No chest pain. EKG no acute ST elevation
# acute on chronic blood loss anemia
s/p 2 units of RBCS 01/29
#Hyponatremia
#Breast cancer
S/p left sided mastectomy
Continue letrozole
#Diabetes type 2
Continue metformin
Add SSI
#Hyperlipidemia
Continue atorvastatin
#History of CVA
Recent left cerebellar CVA. Started on dual antiplatelet therapy. Seen by neurologist. Risk of bleeding is higher with ongoing GI bleeding. Can hold antiplatelet therapy. Discussed with surgery, continue with aspirin for now
No neurological deficits
Continue atorvastatin
#Hypertension
Continue amlodipine
DVT prophylaxis�SCDs
Diet clears
DNR
Total time spent to see the patient, examine the patient, review data and lab results, discuss treatment plan with patient, nursing staff around 55 minutes
Anticipated Discharge: Today
Subjective/Interval History
-
Date of Service: January 31, 2025
.
Objective Data
-
Labs:
Laboratory Results
01/31/25
08:26
WBC 17.7 H
Hgb 11.2 L
Hct 33.6 L
Plt Count 401 H
Sodium 133 L
Potassium 4.3
Chloride 102
Carbon Dioxide 25
BUN 9
Creatinine 0.6
Glucose 156 H
Calcium 8.7
Vital Signs:
Vital Signs
Temp Pulse Resp BP Pulse Ox
98.3 F 70 16 142/62 96
01/31/25 08:24 01/31/25 08:24 01/31/25 08:24 01/31/25 08:24 01/31/25 08:24
I&O
01/30/25 01/31/25 02/01/25
06:59 06:59 06:59
Intake Total 1949 720 / 720
Balance 1949 720 / 720
[2025-01-31] MEDS: LOW STRENGTH ASPIRIN 81 MG PO (10:16)
[2025-01-31] MEDS: FEMARA 2.5 MG PO (10:16)
[2025-01-31] MEDS: NSS (PRESERVATIVE FREE) 10 ML IV (10:16)
[2025-01-31] MEDS: TOPROL XL 25 MG PO (10:16)
[2025-01-31] MEDS: GLUCOPHAGE 1000 MG PO (10:16)
[2025-01-31] MEDS: NORVASC 5 MG PO (10:16)
[2025-01-31] MEDS: PROTONIX IV 40 MG IV (10:17)
[2025-01-31] MEDS: NOVOLOG FLEXPEN-LOW RESISTANCE 1 UNITS SC ×3 (10:17→17:32)
[2025-01-31 11:45] LABS: Glucose - Point of Care 156 mg/dl (70-99)
--- NOTE | 2025-01-31 13:07 | CM ---
patient seen at bedside
PT/OT ordered-await Eval
spoke with Jovanna at [facility]
Will need ins auth
PLAN: Anticipate [facility], await PT/OT evals, CM to continue to follow, will need ins auth
[2025-01-31] MEDS: LIPITOR 20 MG PO (17:24)
[2025-01-31] MEDS: LOVENOX 40 MG SC (17:24)
[2025-01-31 17:34] LABS: Glucose - Point of Care 187 mg/dl (70-99)
[2025-01-31 20:50] LABS: Glucose - Point of Care 197 mg/dl (70-99)
[2025-01-31] MEDS: GLUCOPHAGE PO (20:57)
[2025-02-01 03:56] VITALS: BMI 27.7
[2025-02-01 07:19] VITALS: BP 164/67
[2025-02-01 07:54] LABS: Glucose - Point of Care 185 mg/dl (70-99)
[2025-02-01 08:26] LABS: Hematocrit 34.6 % (37.0-47.0); Hemoglobin 11.4 g/dL (12.0-16.0); Mean Corp Hgb Conc. 32.9 g/dL (33.0-37.0); Mean Corpuscular Volume 88.9 fL (81.0-99.0); Nucleated Red Blood Cells % 0 %; Platelet Count 419 10^3/uL (130-400); Red Cell Dist. Width 13.7 % (11.5-14.5)
[2025-02-01 09:00] LABS: Blood Urea Nitrogen 12 mg/dl (7-17); Calcium 9.1 mg/dl (8.4-10.2); Carbon Dioxide 29 mmol/L (22-30); Chloride 101 mmol/L (98-107); Estimated Creatinine Clearance 65 ml/min; Glucose 167 mg/dl (70-99); Potassium 4.3 mmol/L (3.5-5.1); Sodium 132 mmol/L (135-145); eGFR > 60.00
[2025-02-01] MEDS: TOPROL XL 25 MG PO (09:24)
[2025-02-01] MEDS: LOW STRENGTH ASPIRIN 81 MG PO (09:24)
[2025-02-01] MEDS: NSS (PRESERVATIVE FREE) 10 ML IV (09:24)
[2025-02-01] MEDS: FEMARA 2.5 MG PO (09:24)
[2025-02-01] MEDS: GLUCOPHAGE 1000 MG PO ×2 (09:24→21:00)
[2025-02-01] MEDS: PROTONIX IV 40 MG IV (09:24)
[2025-02-01] MEDS: NORVASC 5 MG PO (09:24)
[2025-02-01] MEDS: NOVOLOG FLEXPEN-LOW RESISTANCE 1 UNITS SC ×2 (09:25→17:30)
--- NOTE | 2025-02-01 09:39 | PTCARENOTE ---
relayed to colorectal surgery pollution control chemist and hospitalist through TT am incision findings below:
'Good morning. Passing along my findings. Pt's mid abdomen incision leaking brown/sanguineous fluid, pink tissue surrounding site of oozing. No odor. Cleansed with saline, applied sterile gauze. Large fluid filled blister around incision as well'.
--- NOTE | 2025-02-01 10:20 | CM ---
Addendum entered by Charla Isidro 02/01/25 12:46:
discharge on hold today (dc removed) tentative tomorrow to [facility] - notified Jovanna from [facility]
NILSON [facility] updated
Addendum entered by Charla Isidro 02/01/25 12:06:
received vm from Anitra ([phone]) from ins - patient was approved for [facility] today
Auth Approval #: [id number]
start date 02/01/25-02/06/25, NRD 02/06/25
fax updates to [phone]
called Jovannayoni Marie at [facility] and all insurance approval information given to her.
PLAN: [facility] TODAY
[place] Report #: [id number]
[place] fax #: [phone]
Original Note:
spoke with Jovanna from [facility], states has a bed available today
PT/OT REC Acute Rehab
[facility] NPI #: [id number]
Dr. Granda NPI #: [id number]
CM called [phone] and spoke to Charmaine to initiate authorization for [facility]
PENDING AUTH #: [id number]
Charmaine [facility] will call CM back with determination
PLAN: [facility], pending determination of auth
[place] [facility] Report #: [id number]
[facility] [place] [facility] fax #: [phone]
--- NOTE | 2025-02-01 10:23 | W.PN.HOSP.TC ---
Today's Communication/Plan
-
dc planning
Assessment / Plan
Assessment / Plan
Physical Exam
General: No Apparent Distress
HEENT: NormoCephalic and Atraumatic
Respiratory: Clear
Cardiac: S1/S2 and Regular Rhythm
GI: Soft, Normal Bowel Sounds and Other (Incision with intact carol, no erythema/purulent drainage noted. Mild tenderness to palpation)
Rectal: Hemorrhoids and Other (Dark red blood, no active bleeding noted)
Skin: Warm and Dry
Neuro: Awake, Alert, Oriented, AO to self and surroundings,
Psych: Calm
84-year-old female with past medical history of hypertension, diabetes, CVA, hyperlipidemia, polio, urinary retention, metastatic breast cancer, asthma, pheochromocytoma, colon cancer s/p open partial colectomy (transverse colon, takedown of splenic
flexure, lysis of additions 01/19/2025), [facility] bleeding per rectum.
PLAN:
#Lower GI bleed
Likely from subacute/chronic GI bleeding exacerbated by use of Plavix & aspirin
Plavix on hold
Stable HGB
No active bleeding, she denies abdominal pain
Per surgery: ok to dc, on LRD
# stage IIIC colon cancer
seen by oncology, will f/w in office for adjuvant chemotherapy
I updated POA
#Elevated troponin
Nonischemic myocardial injury secondary to anemia
No chest pain. EKG no acute ST elevation
# acute on chronic blood loss anemia
s/p 2 units of RBCS 01/29
#Hyponatremia
#Breast cancer
S/p left sided mastectomy
Continue letrozole
#Diabetes type 2
Continue metformin
Added SSI
#Hyperlipidemia
Continue atorvastatin
#History of CVA
Recent left cerebellar CVA. Started on dual antiplatelet therapy. Seen by neurologist. Risk of bleeding is higher with ongoing GI bleeding. Can hold antiplatelet therapy. Discussed with surgery, continue with aspirin for now
No neurological deficits
Continue atorvastatin
#Hypertension
Continue amlodipine
DVT prophylaxis�SCDs
Diet clears
DNR
Total discharge time spent to see the patient, examine the patient, review data and lab results, discuss discharge plan with patient, POA, case manager specialist, nursing staff around 65 minutes
Anticipated Discharge: Today
Subjective/Interval History
-
Date of Service: February 01, 2025
No abdominal pain
Passing normal BM
No fevers
Objective Data
-
Labs:
Laboratory Results
02/01/25
08:10
WBC 16.1 H
Hgb 11.4 L
Hct 34.6 L
Plt Count 419 H
Sodium 132 L
Potassium 4.3
Chloride 101
Carbon Dioxide 29
BUN 12
Creatinine 0.6
Glucose 167 H
Calcium 9.1
Vital Signs:
Vital Signs
Temp Pulse Resp BP Pulse Ox
98.5 F 69 16 164/67 95
02/01/25 07:19 02/01/25 07:19 02/01/25 07:19 02/01/25 07:19 02/01/25 07:19
I&O
01/31/25 02/01/25 02/02/25
06:59 06:59 06:59
Intake Total 720 / 720 920 / 920
Balance 720 / 720 920 / 920
[2025-02-01 11:48] LABS: Glucose - Point of Care 214 mg/dl (70-99)
--- NOTE | 2025-02-01 12:45 | W.PN.CRS1 ---
Today's Communication / Plan
-
wound care
bactrim DS
hold discharge today
Assessment/Plan
-
Patient's status post partial colectomy for colon tumor initially complicated by CVA and then readmitted for bloody BMs/presumably anastomotic blood, followed by now by midline wound discharge
1. Wound packed with iodoform. A few carol removed. Covered with gauze and paper tape.
2. Trend labs - persistent leukocytosis
3. Okay to continue with diet
4. Okay to continue with ASA 81mg daily
5. continue out of bed/PT/OT.
6. continue SCD's and Lovenox for DVT prophylaxis
7. Start bactrim DS po BID x 10 days
8. Recommend holding discharge today. Hospitalist and RN notified.
Subjective Data
Subjective Data
Date of Service: February 01, 2025
We were notified by RN regarding patient's incision. Patient said she noticed some discharge this morning when her wound was changed. Otherwise, she denies any new pain. She is moving her bowels.
Objective Data
-
Vital Signs
Temp Pulse Resp BP Pulse Ox
98.5 F 69 16 164/67 95
02/01/25 07:19 02/01/25 07:19 02/01/25 07:19 02/01/25 07:19 02/01/25 07:19
Intake & Output
01/31/25 02/01/25 02/02/25
06:59 06:59 06:59
Intake Total 720 / 720 920 / 920
Balance 720 / 720 920 / 920
Intake:
Oral fluids 720 / 720 920 / 920
IV fluids (Total) 0 / 0
IV piggybacks 0 / 0
Other:
How many times incontinent 1
SATURATED amount urine
Number of approximated MODERATE 4 1
amounts of urine
Number of approximated LARGE 1 1 1
amounts of urine
Lab Results
02/01/25 08:10
02/01/25 08:10
Physical Exam
-
General: No Acute Distress and AOx3
Abdomen: Soft, Non Distended and Non Tender
Wound: Other (Midline incision with carol in place and discharge from right above umbilicus - brown and green pus with blood, some mild erythema around incision, carol removed, back with iodoform)
[2025-02-01] MEDS: NOVOLOG FLEXPEN-LOW RESISTANCE 2 UNITS SC (12:49)
[2025-02-01] MEDS: BACTRIM DS 800 MG/160 MG 1 TABLET PO ×2 (14:36→21:01)
[2025-02-01 15:02] VITALS: BP 150/63
[2025-02-01] MEDS: LOVENOX 40 MG SC (17:13)
[2025-02-01] MEDS: LIPITOR 20 MG PO (17:13)
[2025-02-01 17:19] LABS: Glucose - Point of Care 176 mg/dl (70-99)
[2025-02-01 22:11] LABS: Glucose - Point of Care 171 mg/dl (70-99)
[2025-02-01 23:00] VITALS: BP 163/78
[2025-02-01 23:22] VITALS: BMI 27.5
[2025-02-02 07:00] VITALS: BP 158/61
[2025-02-02] MEDS: LOW STRENGTH ASPIRIN 81 MG PO (07:21)
[2025-02-02] MEDS: FEMARA 2.5 MG PO (07:21)
[2025-02-02] MEDS: GLUCOPHAGE 1000 MG PO ×2 (07:21→19:50)
[2025-02-02] MEDS: BACTRIM DS 800 MG/160 MG 1 TABLET PO ×2 (07:21→19:50)
[2025-02-02] MEDS: NSS (PRESERVATIVE FREE) 10 ML IV (07:22)
[2025-02-02] MEDS: PROTONIX IV 40 MG IV (07:22)
[2025-02-02] MEDS: TOPROL XL 25 MG PO (07:29)
[2025-02-02] MEDS: NORVASC 5 MG PO (07:29)
[2025-02-02 07:57] LABS: Glucose - Point of Care 162 mg/dl (70-99)
[2025-02-02] MEDS: NOVOLOG FLEXPEN-LOW RESISTANCE 1 UNITS SC ×2 (08:08→16:54)
--- NOTE | 2025-02-02 10:22 | W.PN.CRS1 ---
Today's Communication / Plan
-
wound cultures
continue bactrim
daily wound changes
recommend holding on d/c until cultures have resulted
Assessment/Plan
-
Patient's status post partial colectomy for colon tumor initially complicated by CVA and then readmitted for bloody BMs/presumably anastomotic blood, followed by now by midline wound discharge
1. Wound packed with iodoform. A few carol removed. Covered with gauze and paper tape. Change daily. Wound cultures performed.
2. Trend labs - persistent leukocytosis
3. Okay to continue with diet
4. Okay to continue with ASA 81mg daily
5. continue out of bed/PT/OT.
6. continue SCD's and Lovenox for DVT prophylaxis
7. On bactrim DS po BID x 10 days
8. Recommend holding discharge until wound cultures are resulted.
Subjective Data
Subjective Data
Date of Service: February 02, 2025
Patient states she feels well. She denies pain. She has bowel function. No nausea or vomiting.
Objective Data
-
Vital Signs
Temp Pulse Resp BP Pulse Ox
98.4 F 72 17 158/61 99
02/02/25 07:00 02/02/25 07:29 02/02/25 07:00 02/02/25 07:29 02/02/25 07:00
Intake & Output
02/01/25 02/02/25 02/03/25
06:59 06:59 06:59
Intake Total 920 / 920 360 / 360
Balance 920 / 920 360 / 360
Intake:
Oral fluids 920 / 920 360 / 360
IV fluids (Total) 0 / 0
IV piggybacks 0 / 0
Other:
How many times incontinent 1
MODERATE amount urine
How many times incontinent 1 2
SATURATED amount urine
Number of approximated MODERATE 1
amounts of urine
Number of approximated LARGE 1 1
amounts of urine
Lab Results
02/01/25 08:10
02/01/25 08:10
Physical Exam
-
General: No Acute Distress and AOx3
Abdomen: Soft, Non Distended and Non Tender
Wound: Dressing Changed and Other (less erythema around wound today, some pus noted, packed with iodoform, cultures performed)
--- NOTE | 2025-02-02 11:11 | W.PN.HOSP.TC ---
Today's Communication/Plan
-
I left VM to POA about holding discharge to [place] and needing surgery to clear her after surgery site inflammation.
Assessment / Plan
Assessment / Plan
Physical Exam
General: No Apparent Distress
HEENT: NormoCephalic and Atraumatic
Respiratory: Clear
Cardiac: S1/S2 and Regular Rhythm
GI: Soft, Normal Bowel Sounds and Other (Incision with intact carol, no erythema/purulent drainage noted. Mild tenderness to palpation)
Rectal: Hemorrhoids and Other (Dark red blood, no active bleeding noted)
Skin: Warm and Dry
Neuro: Awake, Alert, Oriented, AO to self and surroundings,
Psych: Calm
84-year-old female with past medical history of hypertension, diabetes, CVA, hyperlipidemia, polio, urinary retention, metastatic breast cancer, asthma, pheochromocytoma, colon cancer s/p open partial colectomy (transverse colon, takedown of splenic
flexure, lysis of additions 01/19/2025), presenting to the ER from [facility] for evaluation of bleeding per rectum.
PLAN:
# Possible surgery site infection
surgery did wound culture and packing
Empiric Bactrim is given
No systemic manifestation of infection noted.
#Lower GI bleed
Likely from subacute/chronic GI bleeding exacerbated by use of Plavix & aspirin. Plavix on hold
Stable HGB
No active bleeding, she denies abdominal pain
Per surgery: ok to dc, on LRD
# stage IIIC colon cancer
seen by oncology, will f/w in office for adjuvant chemotherapy
I updated POA
#Elevated troponin
Nonischemic myocardial injury secondary to anemia
No chest pain. EKG no acute ST elevation
# acute on chronic blood loss anemia
s/p 2 units of RBCS 01/29
#Hyponatremia
#Breast cancer
S/p left sided mastectomy
Continue letrozole
#Diabetes type 2
Continue metformin
Added SSI
#Hyperlipidemia
Continue atorvastatin
#History of CVA
Recent left cerebellar CVA. Started on dual antiplatelet therapy. Seen by neurologist. Risk of bleeding is higher with ongoing GI bleeding. Can hold antiplatelet therapy. Discussed with surgery, continue with aspirin for now
No neurological deficits
Continue atorvastatin
#Hypertension
Continue amlodipine
DVT prophylaxis�SCDs
Diet clears
DNR
Total discharge time spent to see the patient, examine the patient, review data and lab results, discuss discharge plan with patient, POA, spring encaser, nursing staff around 65 minutes
Anticipated Discharge: 24 - 48 hours
Subjective/Interval History
-
Date of Service: February 02, 2025
No complaints
Objective Data
-
Vital Signs:
Vital Signs
Temp Pulse Resp BP Pulse Ox
98.4 F 72 17 158/61 99
02/02/25 07:00 02/02/25 07:29 02/02/25 07:00 02/02/25 07:29 02/02/25 07:00
I&O
02/01/25 02/02/25 02/03/25
06:59 06:59 06:59
Intake Total 920 / 920 360 / 360
Balance 920 / 920 360 / 360
--- NOTE | 2025-02-02 11:23 | CM ---
spoke with Jovanna at [facility] & updated - awaiting cx
She states they can take the patient on Wednesday after she spoke with Dr. Granda
Auth approved for [facility]
Anitra ([phone]) from [facility] [facility]
Auth Approval #: [id number]
start date 02/01/25-02/06/25, NRD 02/06/25
fax updates to [phone]
PLAN: [facility] Monday 02/05
[facility] Report #: [phone]
[facility] fax #: [phone]
[2025-02-02 11:31] LABS: Glucose - Point of Care 216 mg/dl (70-99)
[2025-02-02] MEDS: NOVOLOG FLEXPEN-LOW RESISTANCE 2 UNITS SC (12:21)
[2025-02-02 15:00] VITALS: BP 151/59
[2025-02-02 16:32] LABS: Glucose - Point of Care 170 mg/dl (70-99)
[2025-02-02] MEDS: LOVENOX 40 MG SC (16:54)
[2025-02-02] MEDS: LIPITOR 20 MG PO (16:55)
[2025-02-02 19:48] LABS: Glucose - Point of Care 193 mg/dl (70-99)
[2025-02-02] MEDS: ULTRAM 50 MG PO (19:49)
[2025-02-02 23:00] VITALS: BP 152/66
[2025-02-03 07:00] VITALS: BP 131/61
[2025-02-03 07:33] LABS: Blood Urea Nitrogen 13 mg/dl (7-17); Calcium 9.1 mg/dl (8.4-10.2); Carbon Dioxide 28 mmol/L (22-30); Chloride 102 mmol/L (98-107); Estimated Creatinine Clearance 43 ml/min; Glucose 128 mg/dl (70-99); Potassium 4.9 mmol/L (3.5-5.1); Sodium 133 mmol/L (135-145); eGFR > 60.00
[2025-02-03 07:39] LABS: Hematocrit 34.0 % (37.0-47.0); Hemoglobin 11.0 g/dL (12.0-16.0); Mean Corp Hgb Conc. 32.4 g/dL (33.0-37.0); Mean Corpuscular Volume 89.9 fL (81.0-99.0); Platelet Count 438 10^3/uL (130-400); Red Cell Dist. Width 13.5 % (11.5-14.5)
[2025-02-03] MEDS: LOW STRENGTH ASPIRIN 81 MG PO (08:02)
[2025-02-03] MEDS: PLAVIX 75 MG PO (08:02)
[2025-02-03 08:03] LABS: Glucose - Point of Care 141 mg/dl (70-99)
[2025-02-03] MEDS: TOPROL XL 25 MG PO (08:03)
[2025-02-03] MEDS: NSS (PRESERVATIVE FREE) 10 ML IV (08:03)
[2025-02-03] MEDS: GLUCOPHAGE 1000 MG PO ×2 (08:03→19:50)
[2025-02-03] MEDS: FEMARA 2.5 MG PO (08:03)
[2025-02-03] MEDS: PROTONIX IV 40 MG IV (08:04)
[2025-02-03] MEDS: BACTRIM DS 800 MG/160 MG 1 TABLET PO ×2 (08:04→19:50)
[2025-02-03] MEDS: NOVOLOG FLEXPEN-LOW RESISTANCE SC (08:05)
[2025-02-03] MEDS: NORVASC 5 MG PO (08:09)
--- NOTE | 2025-02-03 09:19 | W.PN.GS2 ---
Addendum entered and electronically signed by All Vora MD 02/03/25 09:27:
Patient seen and examined. Agree with assessment plan as documented below.
Original Note:
Today's Communication / Plan
-
local wound care, await wound cx
Assessment / Plan
-
Ms Brothers is status post partial colectomy for colon tumor initially complicated by CVA and then readmitted for bloody BMs/presumably anastomotic blood (resolved), followed by now for suspected infection of the surgical incision near the umbilicus.
AFVSS
Leukocytosis resolved
Wound clean, no purulence noted with dressing change today. minimal erythema
Plan:
Continue daily dressing changes with iodoform packing
Await wound cx
Continue Bactrim DS, anticipate 10 day course
SCDs/Lovenox for VTE ppx
Ok for discharge once wound cx finalized
Subjective Data
-
Date of Service: February 03, 2025
Pt seen and examined at bedside with Dr. Vora. In good spirits. Denies n/v. Tolerating diet. Denies pain.
Objective Data
-
Intake and Output
02/02/25 02/03/25 02/04/25
06:59 06:59 06:59
Intake Total 360 / 360 1040 / 1040
Balance 360 / 360 1040 / 1040
Intake:
Oral fluids 360 / 360 1040 / 1040
Other:
How many times incontinent 1
SMALL amount urine
How many times incontinent 1 1
MODERATE amount urine
How many times incontinent 2
SATURATED amount urine
Number of approximated SMALL 1
amounts of urine
Number of approximated MODERATE 1
amounts of urine
Number of approximated LARGE 1
amounts of urine
Vital Signs
Temp Pulse Resp BP Pulse Ox
98.2 F 63 17 131/61 95
02/03/25 07:00 02/03/25 07:00 02/03/25 07:00 02/03/25 07:00 02/03/25 07:00
Lab Results
02/03/25 07:24
02/03/25 06:43
Calcium 9.1 mg/dl (8.4-10.2) 02/03/25 06:43
Total Bilirubin 0.3 mg/dl (0.2-1.3) 01/29/25 03:31
AST 25 U/L (14-36) 01/29/25 03:31
ALT 21 U/L (0-35) 01/29/25 03:31
Alkaline Phosphatase 74 U/L (38-126) 01/29/25 03:31
Total Protein 4.8 g/dl (6.3-8.2) L 01/29/25 03:31
Albumin 2.4 g/dl (3.5-5.0) L 01/29/25 03:31
Physical Exam
-
NAD
ABD soft, nd, nt
[place] intact with several removed near umbilicus where there is a quarter sized diameter open area. Packing changed, no purulent discharge.
--- NOTE | 2025-02-03 09:44 | W.PN.HOSP.TC ---
Today's Communication/Plan
-
Await wound culture
resuming Plavix with aspirin
Assessment / Plan
Assessment / Plan
Physical Exam
General: No Apparent Distress
HEENT: NormoCephalic and Atraumatic
Respiratory: Clear
Cardiac: S1/S2 and Regular Rhythm
GI: Soft, Normal Bowel Sounds and Other (Incision with intact carol, no erythema/purulent drainage noted)
Rectal: no bleeding
Skin: Warm and Dry
Neuro: Awake, Alert, Oriented, AO to self and surroundings,
Psych: Calm
84-year-old female with past medical history of hypertension, diabetes, CVA, hyperlipidemia, polio, urinary retention, metastatic breast cancer, asthma, pheochromocytoma, colon cancer s/p open partial colectomy (transverse colon, takedown of splenic
flexure, lysis of additions 01/19/2025), presenting to the ER from [facility] for evaluation of bleeding per rectum.
PLAN:
# Possible surgery site infection
surgery did wound culture and packing
Empiric Bactrim is given
No systemic manifestation of infection noted.
#Lower GI bleed
Likely from subacute/chronic GI bleeding exacerbated by use of Plavix & aspirin. Plavix was held, now resumed with aspirin.
Stable HGB
No active bleeding, she denies abdominal pain
Per surgery: ok to dc, on LRD
# stage IIIC colon cancer
seen by oncology, will f/w in office for adjuvant chemotherapy
I updated POA
#Elevated troponin
Nonischemic myocardial injury secondary to anemia
No chest pain. EKG no acute ST elevation
# acute on chronic blood loss anemia
s/p 2 units of RBCS 01/29
#Hyponatremia
#Breast cancer
S/p left sided mastectomy
Continue letrozole
#Diabetes type 2
Continue metformin
Added SSI
#Hyperlipidemia
Continue atorvastatin
#History of CVA
Recent left cerebellar CVA. Started on dual antiplatelet therapy. Seen by neurologist. Risk of bleeding is higher with ongoing GI bleeding. Held dual antiplatelet therapy. Discussed with surgery, ok to resume Plavix, c/w aspirin also .
No neurological deficits
Continue atorvastatin
#Hypertension
Continue amlodipine
DVT prophylaxis�SCDs
Diet clears
DNR
Total discharge time spent to see the patient, examine the patient, review data and lab results, discuss discharge plan with patient, POA, assistant case manager, nursing staff around 65 minutes
Anticipated Discharge: 24 - 48 hours
Subjective/Interval History
-
Date of Service: February 03, 2025
No chest pain
No sob
Objective Data
-
Labs:
Laboratory Results
02/03/25 02/03/25
06:43 07:24
WBC 10.1
Hgb 11.0 L
Hct 34.0 L
Plt Count 438 H
Sodium 133 L
Potassium 4.9
Chloride 102
Carbon Dioxide 28
BUN 13
Creatinine 0.9
Glucose 128 H
Calcium 9.1
Vital Signs:
Vital Signs
Temp Pulse Resp BP Pulse Ox
98.2 F 63 17 131/61 95
02/03/25 07:00 02/03/25 07:00 02/03/25 07:00 02/03/25 07:00 02/03/25 07:00
I&O
02/02/25 02/03/25 02/04/25
06:59 06:59 06:59
Intake Total 360 / 360 1040 / 1040
Balance 360 / 360 1040 / 1040
[2025-02-03 12:14] LABS: Glucose - Point of Care 208 mg/dl (70-99)
[2025-02-03] MEDS: NOVOLOG FLEXPEN-LOW RESISTANCE 2 UNITS SC (12:31)
[2025-02-03 15:00] VITALS: BP 145/115
[2025-02-03 15:51] VITALS: BP 135/107
[2025-02-03 16:05] LABS: Glucose - Point of Care 174 mg/dl (70-99)
[2025-02-03] MEDS: NOVOLOG FLEXPEN-LOW RESISTANCE 1 UNITS SC (16:27)
[2025-02-03] MEDS: LIPITOR 20 MG PO (17:24)
[2025-02-03] MEDS: LOVENOX 40 MG SC (17:24)
[2025-02-03 21:08] LABS: Glucose - Point of Care 137 mg/dl (70-99)
[2025-02-03 22:57] VITALS: BP 133/57
[2025-02-04 06:00] VITALS: BMI 27.6
[2025-02-04 07:00] VITALS: BP 133/58
[2025-02-04 08:05] LABS: Glucose - Point of Care 160 mg/dl (70-99)
[2025-02-04] MEDS: NOVOLOG FLEXPEN-LOW RESISTANCE 1 UNITS SC ×2 (08:17→18:29)
[2025-02-04] MEDS: GLUCOPHAGE 1000 MG PO ×2 (08:18→22:22)
[2025-02-04] MEDS: FEMARA 2.5 MG PO (08:18)
[2025-02-04] MEDS: NORVASC 5 MG PO (08:18)
[2025-02-04] MEDS: BACTRIM DS 800 MG/160 MG 1 TABLET PO ×2 (08:18→22:22)
[2025-02-04] MEDS: LOW STRENGTH ASPIRIN 81 MG PO (08:19)
[2025-02-04] MEDS: TOPROL XL 25 MG PO (08:19)
[2025-02-04] MEDS: PLAVIX 75 MG PO (08:19)
[2025-02-04] MEDS: PROTONIX IV 40 MG IV (08:19)
[2025-02-04] MEDS: NSS (PRESERVATIVE FREE) 10 ML IV (08:19)
--- NOTE | 2025-02-04 09:15 | W.PN.GS2 ---
Addendum entered and electronically signed by All Vora MD 02/04/25 09:34:
Patient seen and examined. Agree with assessment plan as documented below.
Original Note:
Today's Communication / Plan
-
c/w abx and wound care
Assessment / Plan
-
Ms Brothers is status post partial colectomy for colon tumor initially complicated by CVA and then readmitted for bloody BMs/presumably anastomotic blood (resolved), followed by now for suspected infection of the surgical incision near the umbilicus.
AFVSS
No further bloody bm's on DAPT
Wound clean, no purulence noted with dressing change today. minimal erythema
Preliminary wound cx with gram positive rods and gram negative rods
Plan:
Continue daily dressing changes with iodoform packing
Await final wound cx
Continue Bactrim DS, anticipate 10 day course of abx
SCDs/Lovenox for VTE ppx
Ok for discharge once wound cx finalized
Pt plan of care d/w Dr Rendon at bedside
Subjective Data
-
Date of Service: February 04, 2025
Pt seen and examined at bedside with Dr. Vora. Denies n/v. Tolerating diet. No bloody stools. Denies pain.
Objective Data
-
Intake and Output
02/03/25 02/04/25 02/05/25
06:59 06:59 06:59
Intake Total 1040 / 1040 1859
Balance 1040 / 1040 1859
Intake:
Oral fluids 1040 / 1040 1859
Other:
How many times incontinent 1
SMALL amount urine
How many times incontinent 1
MODERATE amount urine
Number of approximated SMALL 1
amounts of urine
Number of approximated MODERATE 1
amounts of urine
Number of approximated LARGE 6
amounts of urine
Vital Signs
Temp Pulse Resp BP Pulse Ox
98.3 F 65 17 133/58 94
02/04/25 07:00 02/04/25 08:18 02/04/25 07:00 02/04/25 08:18 02/04/25 07:00
Lab Results
02/03/25 07:24
02/03/25 06:43
Calcium 9.1 mg/dl (8.4-10.2) 02/03/25 06:43
Total Bilirubin 0.3 mg/dl (0.2-1.3) 01/29/25 03:31
AST 25 U/L (14-36) 01/29/25 03:31
ALT 21 U/L (0-35) 01/29/25 03:31
Alkaline Phosphatase 74 U/L (38-126) 01/29/25 03:31
Total Protein 4.8 g/dl (6.3-8.2) L 01/29/25 03:31
Albumin 2.4 g/dl (3.5-5.0) L 01/29/25 03:31
Physical Exam
-
NAD
ABD soft, nd, nt
[place] intact with several removed near umbilicus where there is a quarter sized diameter open area. Packing changed, no purulent discharge.
--- NOTE | 2025-02-04 09:40 | W.PN.HOSP.TC ---
Today's Communication/Plan
-
c/w Bactrim
CBC in AM
Assessment / Plan
Assessment / Plan
Physical Exam
General: No Apparent Distress
HEENT: NormoCephalic and Atraumatic
Respiratory: Clear
Cardiac: S1/S2 and Regular Rhythm
GI: Soft, Normal Bowel Sounds and Other (Incision with intact carol, no erythema/purulent drainage noted)
Rectal: no bleeding
Skin: Warm and Dry
Neuro: Awake, Alert, Oriented, AO to self and surroundings,
Psych: Calm
84-year-old female with past medical history of hypertension, diabetes, CVA, hyperlipidemia, polio, urinary retention, metastatic breast cancer, asthma, pheochromocytoma, colon cancer s/p open partial colectomy (transverse colon, takedown of splenic
flexure, lysis of additions 01/19/2025), [facility] for evaluation of bleeding per rectum.
PLAN:
# Surgery site infection
Afebrile, no pain in area.
Surgery did wound culture and packing daily.
Wound culture pending, might finalize today 02/04?
Empiric Bactrim is given and seems to help. Less induration around the wound, WBC normal now.
No systemic manifestation of infection noted.
#Lower GI bleed
Likely from subacute/chronic GI bleeding exacerbated by use of Plavix & aspirin. Plavix was held, now resumed with aspirin.
Stable HGB
No active bleeding, she denies abdominal pain
Per surgery: ok to dc, on LRD
# stage IIIC colon cancer
seen by oncology, will f/w in office for adjuvant chemotherapy
Updated POA
#Elevated troponin
Nonischemic myocardial injury secondary to anemia
No chest pain. EKG no acute ST elevation
# acute on chronic blood loss anemia
s/p 2 units of RBCS 01/29
#Hyponatremia
#Breast cancer
S/p left sided mastectomy
Continue letrozole
#Diabetes type 2
Continue metformin
Added SSI
#Hyperlipidemia
Continue atorvastatin
#History of CVA
Recent left cerebellar CVA. Started on dual antiplatelet therapy. Seen by neurologist. Risk of bleeding is higher with ongoing GI bleeding. Held dual antiplatelet therapy. Discussed with surgery, ok to resume Plavix, c/w aspirin also .
No neurological deficits
Continue atorvastatin
#Hypertension
Continue amlodipine
DVT prophylaxis�SCDs
Diet clears
DNR
Total discharge time spent to see the patient, examine the patient, review data and lab results, discuss discharge plan with patient, POA, surgery, case investigator, nursing staff around 65 minutes
Anticipated Discharge: 24 - 48 hours
Subjective/Interval History
-
Date of Service: February 04, 2025
No chest pain
No sob
Objective Data
-
Vital Signs:
Vital Signs
Temp Pulse Resp BP Pulse Ox
98.3 F 65 17 133/58 94
02/04/25 07:00 02/04/25 08:18 02/04/25 07:00 02/04/25 08:18 02/04/25 07:00
I&O
02/03/25 02/04/25 02/05/25
06:59 06:59 06:59
Intake Total 1040 / 1040 1859
Balance 1040 / 1040 1859
[2025-02-04 11:46] LABS: Glucose - Point of Care 141 mg/dl (70-99)
[2025-02-04] MEDS: NOVOLOG FLEXPEN-LOW RESISTANCE SC (12:31)
[2025-02-04 15:00] VITALS: BP 151/67
[2025-02-04 16:33] LABS: Glucose - Point of Care 166 mg/dl (70-99)
[2025-02-04] MEDS: LOVENOX 40 MG SC (18:30)
[2025-02-04] MEDS: LIPITOR 20 MG PO (18:30)
[2025-02-04 21:32] LABS: Glucose - Point of Care 231 mg/dl (70-99)
[2025-02-04 23:15] VITALS: BP 140/78
[2025-02-05 07:30] VITALS: BP 152/83
[2025-02-05 07:55] LABS: Hematocrit 34.8 % (37.0-47.0); Hemoglobin 11.2 g/dL (12.0-16.0); Mean Corp Hgb Conc. 32.2 g/dL (33.0-37.0); Mean Corpuscular Volume 92.1 fL (81.0-99.0); Platelet Count 449 10^3/uL (130-400); Red Cell Dist. Width 13.6 % (11.5-14.5)
[2025-02-05 08:30] LABS: Glucose - Point of Care 153 mg/dl (70-99)
[2025-02-05] MEDS: PROTONIX IV 40 MG IV (08:32)
[2025-02-05] MEDS: BACTRIM DS 800 MG/160 MG 1 TABLET PO ×2 (08:32→20:08)
[2025-02-05] MEDS: PLAVIX 75 MG PO (08:32)
[2025-02-05] MEDS: FEMARA 2.5 MG PO (08:32)
[2025-02-05] MEDS: NSS (PRESERVATIVE FREE) 10 ML IV (08:32)
[2025-02-05] MEDS: LOW STRENGTH ASPIRIN 81 MG PO (08:32)
[2025-02-05] MEDS: GLUCOPHAGE 1000 MG PO ×2 (08:32→20:08)
[2025-02-05] MEDS: TOPROL XL 25 MG PO (08:39)
[2025-02-05] MEDS: NORVASC 5 MG PO (08:39)
[2025-02-05] MEDS: NOVOLOG FLEXPEN-LOW RESISTANCE 1 UNITS SC ×3 (08:40→17:59)
--- NOTE | 2025-02-05 08:52 | CM ---
Addendum entered by Charla Isidro 02/05/25 11:30:
spoke with Jovanna at [facility]-no bed today, bed available TOMORROW
PT/OT eval today
Spoke with [facility]-IMM explained
CM left message with Anitra at [facility] [phone] to update regarding auth approval until 02/06/25
PLAN: [facility] 02/06
[facility] Report #: [phone]
[facility] fax #: [phone]
Original Note:
spoke with [facility] from [facility]
she states she will need updated therapy notes (therapy made aware)
Jovanna will get back to CM regarding bed-tt hospitalist
per hospitalist patient stable for [facility] today
Anitra ([phone]) from [facility]
Auth Approval #: [id number]
start date 02/01/25-02/06/25, NRD 02/06/25
fax updates to [phone]
PLAN: [facility] today
[facility] Report #: [phone]
[facility] fax #: [phone]
--- NOTE | 2025-02-05 09:28 | W.PN.CRS1 ---
Today's Communication / Plan
-
rehab discharge
10 days total bactrim
wound care daily
Assessment/Plan
-
Patient's status post partial colectomy for colon tumor initially complicated by CVA and then readmitted for bloody BMs/presumably anastomotic blood, followed by now by midline wound discharge
1. Wound packed with iodoform. Covered with gauze and paper tape. Change daily. Wound cultures neg.
2. Leukocytosis resolved.
3. Okay to continue with diet
4. Okay to continue with ASA 81mg daily
5. continue out of bed/PT/OT.
6. continue SCD's and Lovenox for DVT prophylaxis
7. On bactrim DS po BID x 10 days
8. Okay for discharge to rehab from our perspective.
Subjective Data
Subjective Data
Date of Service: February 05, 2025
Patient states she feels well. She has no complaints. Tolerating a diet. She has had no isssues with her wound.
Objective Data
-
Vital Signs
Temp Pulse Resp BP Pulse Ox
98.1 F 62 16 152/83 97
02/05/25 07:30 02/05/25 08:39 02/05/25 07:30 02/05/25 08:39 02/05/25 07:30
Intake & Output
02/04/25 02/05/25 02/06/25
06:59 06:59 06:59
Intake Total 1859 1260 / 1260
Balance 1859 1260 / 1260
Intake:
Oral fluids 1859 1260 / 1260
Other:
Number of approximated MODERATE 1
amounts of urine
Number of approximated LARGE 6 2
amounts of urine
Lab Results
02/05/25 07:36
Physical Exam
-
General: No Acute Distress and AOx3
Abdomen: Soft, Non Distended and Non Tender
Wound: Other (dressing changed. wound with no visible pus. erythema resolved. granulation tissue. carol in place. no gross blood. )
[2025-02-05 09:30] VITALS: BP 144/92; PULSE 63; O2SAT 98
[2025-02-05 09:31] VITALS: BP 144/92
--- NOTE | 2025-02-05 11:21 | W.PN.HOSP.TC ---
Addendum entered and electronically signed by Liz Mcguire MD 02/05/25 11:31:
correction: DAPT started 01/23 and to finish 02/13. D/w Dr. Costa and despite hold of Plavix for GI bleed - keep previous timeline. of 3 weeks.
Original Note:
Today's Communication/Plan
-
dc today if [facility] bed available
Assessment / Plan
Assessment / Plan
Assessment:
Surgery site infection
- cultures mixed and final
- d/w CRS service, treat with 10 days total of Bactrim
- wound care per CRS service
Lower GI bleed
- Likely from subacute/chronic GI bleeding exacerbated by use of Plavix & aspirin. Plavix was held, now resumed with aspirin.
- Stable HGB
- No active bleeding, she denies abdominal pain
- diet: LRD
stage IIIC colon cancer
- seen by oncology, will f/w in office for adjuvant chemotherapy
- POA aware
Nonischemic myocardial injury secondary to anemia
- No chest pain. EKG no acute ST elevation
acute on chronic blood loss anemia
- s/p 2 units of RBCS 01/29
Hyponatremia
Breast cancer
- S/p left sided mastectomy
- continue letrozole
Diabetes type 2
- Continue metformin
- Added SSI
Hyperlipidemia
- continue atorvastatin
History of CVA
- Recent left cerebellar CVA. Started on dual antiplatelet therapy. Seen by neurologist. Risk of bleeding is higher with ongoing GI bleeding.
- continue DAPT until 02/11 then ASA alone
- continue Statin
Essential Hypertension
- continue amlodipine
DVT prophylaxis: SCDs
Code: DNR/DNI
Anticipated Discharge: Within 24 hours
Subjective/Interval History
-
Date of Service: February 05, 2025
resting comfortably, no complaints at present
Objective Data
-
Labs:
Laboratory Results
02/05/25 02/05/25
07:36 10:18
WBC 10.0
Hgb 11.2 L
Hct 34.8 L
Plt Count 449 H
Sodium Cancelled Pending
Potassium Cancelled Pending
Chloride Cancelled Pending
Carbon Dioxide Cancelled Pending
BUN Cancelled Pending
Creatinine Cancelled Pending
Glucose Cancelled Pending
Calcium Cancelled Pending
Vital Signs:
Vital Signs
Temp Pulse Resp BP Pulse Ox
98.1 F 62 16 152/83 97
02/05/25 07:30 02/05/25 08:39 02/05/25 07:30 02/05/25 08:39 02/05/25 07:30
I&O
02/04/25 02/05/25 02/06/25
06:59 06:59 06:59
Intake Total 1859 1260 / 1260
Balance 1859 1260 / 1260
Physical Exam
-
General: No Apparent Distress
HEENT: Normocephalic and Atraumatic
Respiratory: Negative Wheezes
Cardiac: Regular Rhythm and S1/S2
GI: Soft and Nontender
Neuro: AO x 3
Psych: Calm
Data Reviewed
-
Total Time Spent with Patient (in minutes): 41
Labs: Labs Reviewed by me
[2025-02-05 12:01] LABS: Glucose - Point of Care 188 mg/dl (70-99)
--- NOTE | 2025-02-05 13:02 | W.DCSUMMARY ---
Discharge Summary
Discharge Data
Date of Admission: 01/09/25
Date of Discharge: 01/13/25
-
Pending Results: No
Hospital Course
84-year-old female presents as a direct admission to the hospital for a colonoscopy followed by a transverse colectomy secondary to likely colon cancer. She had outpatient blood work prior to this and her white count was elevated at 14.9. Given
the WBC, colonoscopy was held off. Hospitalist was consulted for white blood cell count workup. Infectious disease was also consulted. Blood cultures were negative x 2. She had asymptomatic bacteremia on urinalysis. They held off on prescribing
any antibiotics. It was determined after 4 days of admission that the patient febrile to return home and she would present again next week for colonoscopy and surgery to follow. There is no etiology for her WBC and she was discharged with a white
count of 10.9.
Discharge Plan
-
Patient Disposition: Acute Rehab Facility
Discharge Diagnosis/Procedures: lower GI bleed, recent CVA 2 weeks prior, stage 3 colorectal cancer. Surgical site infection on Bactrim
Condition: Fair
Diet: Low Residue
Activity: No strenuous activity
Additional Activity: No lifting over 10lbs (gallon of milk)
Driving Restrictions: Not until seen by your Dr
Bathing Restrictions: OK to Shower
Wound Care: Daily and as needed wound care changes. Pack wound with 1/2 inch iodoform. Cover with gauze and paper tape. Okay to remove dressing for patient to shower. Do this daily until seen by Dr. Kulkarni. Okay to remove carol at rehab in 1 week
from 02/05/2025.
Instructions: Low-fiber diet
Referrals:
Singh Kulkarni MD [Active, ColoRectal] - in one to two weeks
Lashawn Finnegan MD [Family Provider, Internal Medicine]
Prescriptions:
New
sulfamethoxazole-trimethoprim 800-160 mg Tablet
1 tab PO BID Qty: 10 0RF
Rx Instructions:
treatment through 02/10
metoprolol succinate 25 mg Tablet Extended Release 24 Hr
25 mg PO DAILY Qty: 30 0RF
pantoprazole [Protonix] 40 mg tablet,delayed release (DR/EC)
40 mg PO DAILY Qty: 30 0RF
Continued
docusate sodium 100 MG capsule
100 mg PO BIDPRN PRN (Reason: constipation) 30 Days Qty: 60 0RF
Rx Instructions:
for 30 days
aspirin 81 MG tablet,chewable
81 mg PO DAILY 30 Days Qty: 30 0RF
Rx Instructions:
for 30 days
amlodipine [Norvasc] 5 mg Tablet
5 mg PO DAILY
metformin 1,000 mg Tablet
1,000 mg PO BID
atorvastatin 20 mg tablet
20 mg PO QPM
letrozole 2.5 MG tablet
2.5 mg PO DAILY
Rx Instructions:
for 30 days
clopidogrel 75 mg tablet
75 mg PO DAILY Qty: 0 0RF
Rx Instructions:
complete on 02/13
Discharge Date and Time
Print Language: TAMAZIGHT
[2025-02-05 13:20] LABS: Blood Urea Nitrogen 16 mg/dl (7-17); Calcium 9.9 mg/dl (8.4-10.2); Carbon Dioxide 23 mmol/L (22-30); Chloride 102 mmol/L (98-107); Estimated Creatinine Clearance 43 ml/min; Glucose 171 mg/dl (70-99); Potassium 5.0 mmol/L (3.5-5.1); Sodium 131 mmol/L (135-145); eGFR > 60.00
[2025-02-05 16:18] VITALS: BP 162/60
[2025-02-05 17:18] LABS: Glucose - Point of Care 185 mg/dl (70-99)
[2025-02-05 17:21] VITALS: BP 152/71
[2025-02-05] MEDS: LOVENOX 40 MG SC (17:58)
[2025-02-05] MEDS: LIPITOR 20 MG PO (17:58)
[2025-02-05 21:08] LABS: Glucose - Point of Care 164 mg/dl (70-99)
[2025-02-05 23:00] VITALS: BP 150/60
[2025-02-06 07:39] VITALS: BP 146/57
[2025-02-06] MEDS: GLUCOPHAGE 1000 MG PO (07:57)
[2025-02-06] MEDS: FEMARA 2.5 MG PO (07:57)
[2025-02-06 07:58] LABS: Glucose - Point of Care 139 mg/dl (70-99)
[2025-02-06] MEDS: PLAVIX 75 MG PO (07:58)
[2025-02-06] MEDS: BACTRIM DS 800 MG/160 MG 1 TABLET PO (07:58)
[2025-02-06] MEDS: TOPROL XL 25 MG PO (07:58)
[2025-02-06] MEDS: LOW STRENGTH ASPIRIN 81 MG PO (07:58)
[2025-02-06] MEDS: NORVASC 5 MG PO (07:58)
[2025-02-06] MEDS: NSS (PRESERVATIVE FREE) 10 ML IV (07:59)
[2025-02-06] MEDS: PROTONIX IV 40 MG IV (07:59)
[2025-02-06] MEDS: NOVOLOG FLEXPEN-LOW RESISTANCE SC (08:12)
--- NOTE | 2025-02-06 09:03 | CM ---
CM called insurance and spoke with Quin [phone]
authorization adjusted for [facility] - START DATE 02/06/25-02/11/25
NRD 02/12/25
call with updates to [phone]
AUTH APPROVAL # [id number]
Auth information given to Jovanna at [facility] - she stated noon today
IMM in chart
tt hospitalist
PLAN: [facility] 02/06
[facility] Report #: [phone]
[facility] fax #: [phone]
Jovanna from [facility] stated noon today
--- NOTE | 2025-02-06 10:06 | W.PN.HOSP.TC ---
Today's Communication/Plan
-
dc to [facility]
Assessment / Plan
Assessment / Plan
Assessment:
Surgery site infection
- cultures mixed and final
- d/w CRS service, treat with 10 days total of Bactrim
- wound care per CRS service
Lower GI bleed
- Likely from subacute/chronic GI bleeding exacerbated by use of Plavix & aspirin. Plavix was held, now resumed with aspirin.
- Stable HGB
- No active bleeding, she denies abdominal pain
- diet: LRD
stage IIIC colon cancer
- seen by oncology, will f/w in office for adjuvant chemotherapy
- POA aware
Nonischemic myocardial injury secondary to anemia
- No chest pain. EKG no acute ST elevation
acute on chronic blood loss anemia
- s/p 2 units of RBCS 01/29
Hyponatremia
Breast cancer
- S/p left sided mastectomy
- continue letrozole
Diabetes type 2
- Continue metformin
- Added SSI
Hyperlipidemia
- continue atorvastatin
History of CVA
- Recent left cerebellar CVA. Started on dual antiplatelet therapy. Seen by neurologist. Risk of bleeding is higher with ongoing GI bleeding.
- DAPT started 01/23 and to finish 02/13. D/w Dr. Costa and despite hold of Plavix for GI bleed - keep previous timeline. of 3 weeks.
- continue Statin
Essential Hypertension
- continue amlodipine
DVT prophylaxis: SCDs
Code: DNR/DNI
Dispo: DC to [facility] today
Anticipated Discharge: Today
Subjective/Interval History
-
Date of Service: February 06, 2025
resting comfortably, no complaints at present
Objective Data
-
Vital Signs:
Vital Signs
Temp Pulse Resp BP Pulse Ox
98.2 F 61 16 146/57 98
02/06/25 07:39 02/06/25 07:58 02/06/25 07:39 02/06/25 07:58 02/06/25 07:39
I&O
02/05/25 02/06/25 02/07/25
06:59 06:59 06:59
Intake Total 1260 / 1260 720 / 720 480 / 480
Balance 1260 / 1260 720 / 720 480 / 480
Physical Exam
-
General: No Apparent Distress
HEENT: Normocephalic and Atraumatic
Respiratory: Negative Wheezes
Cardiac: Regular Rhythm and S1/S2
GI: Soft and Nontender
Neuro: AO x 3
Psych: Calm
Data Reviewed
-
Total Time Spent with Patient (in minutes): 42
Labs: Labs Reviewed by me
[2025-02-06 11:29] LABS: Glucose - Point of Care 197 mg/dl (70-99)
--- NOTE | 2025-02-06 12:20 | W.DCSUMMARY ---
Discharge Summary
Discharge Data
Date of Admission: 01/17/25
Date of Discharge: 01/26/25
-
Pending Results: Yes
Additional Pending Results:
pathology
Hospital Course
84-year-old female presented to [facility] on 01/17/2025 for bowel prep, colonoscopy, and subsequent surgery. She underwent a pelvic one 01/17/2025. She then underwent a colonoscopy the following day which showed diverticulosis in the
descending colon and sigmoid colon and a likely malignant partially obstructing tumor in the transverse colon. The following day she underwent an open partial colectomy of the transverse colon and takedown of the splenic flexure by Dr. Winters
Shad. There were no obvious intraperitoneal or hepatic metastases that were noted. The following day she was started on clear liquid diet. She was up and out of bed. Lovenox was started for DVT prophylaxis. Later that night she developed
aphasia and had trouble following commands. Her NIH score was an 8 to a 10. She underwent a CT of the head which showed a possible subacute left occipital bleed and a CTA without large vessel occlusion. She was not a candidate for TPN due to
major surgery the day prior. She was transferred to telemetry. On postop day 2 rectal aspirin was started. N.p.o. given speech-language pathology evaluation. Later that night she had another neurochange where she was confused and not able to
follow commands. A CT of the head showed a 1.8 cm acute ischemic infarct in the posterior left cerebellar hemisphere and no evidence for an acute intracranial hemorrhage. There is also a 1.2 cm chronic infarct in the periventricular left frontal
lobe. Neurology was consulted and an EEG was performed. MRI showed inferior left cerebellar hemisphere with several patchy regions of restricted diffusion measuring 3 cm x 2.8 cm x 2 point centimeters. There was also a 3 mm focus of restricted
diffusion in the white matter posterior to the atria of the right lateral ventricle. On postop day 3 the patient was more interactive Plavix was started due to her recent stroke. Speech pathology cleared her for dysphagia diet. Every day her
neuroexam continue to improve. She had urinary retention and a Lee was placed. On postop day 5 urology was consulted who recommended a void trial while at [facility] and urodynamics as an outpatient if she fails. On postop day 6 the patient's
white count was 14.3 however a UA, chest x-ray, and duplex were all negative. She continued on a dysphagia diet. Colace was started twice daily. It was determined the patient could be discharged to [facility]. All discharge instructions were
discussed with the patient and her power of employment law attorney. All questions addressed.
Discharge Plan
-
Patient Disposition: Acute Rehab Facility
Discharge Diagnosis/Procedures: lower GI bleed, recent CVA 2 weeks prior, stage 3 colorectal cancer. Surgical site infection on Bactrim
Condition: Fair
Diet: Low Residue
Activity: No strenuous activity
Additional Activity: No lifting over 10lbs (gallon of milk)
Driving Restrictions: Not until seen by your Dr
Bathing Restrictions: OK to Shower
Wound Care: Daily and as needed wound care changes. Pack wound with 1/2 inch iodoform. Cover with gauze and paper tape. Okay to remove dressing for patient to shower. Do this daily until seen by Dr. Kulkarni. Okay to remove carol at rehab in 1 week
from 02/05/2025.
Instructions: Low-fiber diet
Referrals:
Singh Kulkarni MD [Active, ColoRectal] - in one to two weeks
Melissa Shaw CRNP [Specified Professional Personl, Neurology] - in one month
Yanira Calderón MD [Active, Oncology] - in one month
Lashawn Finnegan MD [Family Provider, Internal Medicine]
Additional Discharge Medication Instructions: finish Plavix on 02/13
Prescriptions:
New
sulfamethoxazole-trimethoprim 800-160 mg Tablet
1 tab PO BID Qty: 10 0RF
Rx Instructions:
treatment through 02/10
metoprolol succinate 25 mg Tablet Extended Release 24 Hr
25 mg PO DAILY Qty: 30 0RF
pantoprazole [Protonix] 40 mg tablet,delayed release (DR/EC)
40 mg PO DAILY Qty: 30 0RF
Continued
docusate sodium 100 MG capsule
100 mg PO BIDPRN PRN (Reason: constipation) 30 Days Qty: 60 0RF
Rx Instructions:
for 30 days
aspirin 81 MG tablet,chewable
81 mg PO DAILY 30 Days Qty: 30 0RF
Rx Instructions:
for 30 days
amlodipine [Norvasc] 5 mg Tablet
5 mg PO DAILY
metformin 1,000 mg Tablet
1,000 mg PO BID
atorvastatin 20 mg tablet
20 mg PO QPM
letrozole 2.5 MG tablet
2.5 mg PO DAILY
Rx Instructions:
for 30 days
clopidogrel 75 mg tablet
75 mg PO DAILY Qty: 0 0RF
Rx Instructions:
complete on 02/13
Discharge Orders:
Discharge Patient (As Directed); Ordered 02/06/25
Ordered By: Liz Mcguire
Discharge Date and Time
Print Language: KENYAN
[2025-02-06] MEDS: NOVOLOG FLEXPEN-LOW RESISTANCE 1 UNITS SC (14:11)
[2025-02-06 14:40] VITALS: BP 141/68
--- NOTE | 2025-02-06 14:46 | W.PN.CRS1 ---
Today's Communication / Plan
-
finish abx
cont local wound care
transfer when bed available
Assessment/Plan
-
Patient's status post partial colectomy for colon tumor initially complicated by CVA and then readmitted for bloody BMs/presumably anastomotic blood, followed by now by midline wound discharge
1. Wound packed with iodoform. Covered with gauze and paper tape. Change daily. Wound cultures neg.
2. Leukocytosis resolved.
3. Okay to continue with diet
4. Okay to continue with ASA 81mg daily
5. continue out of bed/PT/OT.
6. continue SCD's and Lovenox for DVT prophylaxis
7. On bactrim DS po BID x 10 days
8. Okay for discharge to rehab from our perspective.
Subjective Data
Subjective Data
Date of Service: February 06, 2025
No abdominal complains. Her appetite is good and her bowels are functioning.
Objective Data
-
Vital Signs
Temp Pulse Resp BP Pulse Ox
98.2 F 61 16 146/57 98
02/06/25 07:39 02/06/25 07:58 02/06/25 07:39 02/06/25 07:58 02/06/25 10:25
Intake & Output
02/05/25 02/06/25 02/07/25
06:59 06:59 06:59
Intake Total 1260 / 1260 720 / 720 480 / 480
Balance 1260 / 1260 720 / 720 480 / 480
Intake:
Oral fluids 1260 / 1260 720 / 720 480 / 480
Other:
How many times incontinent 1
SMALL amount urine
How many times incontinent 1 2
SATURATED amount urine
Number of approximated MODERATE 1 3 3
amounts of urine
Number of approximated LARGE 2 2
amounts of urine
Lab Results
02/05/25 07:36
02/05/25 12:23
Physical Exam
-
General: No Acute Distress
Abdomen: Soft, Non Distended and Non Tender
Extremities: No Calf Tenderness
Wound: No Signs of Infection and Dressing Changed
--- NOTE | 2025-02-06 14:55 | W.DCSUMMARY ---
Discharge Summary
Discharge Data
Date of Admission: 01/28/25
Date of Discharge: 02/06/25
-
Pending Results: No
Hospital Course
84 y/o F, history of HTN, DM, metastatic breast cancer, HLD, recent hospitalization for transverse colon mass s/p resection (later confirmed to be colorectal cancer, stage 3), recent acute cerebellar CVA placed on DAPT therapy presented 01/28 with
Lower GI bleed. Aspirin was continued and Plavix was stopped. Bleeding spontaneously improved. Patient received 2 units of blood for acute blood loss. She was evaluated by Oncology who will plan outpatient evaluation and consider starting adjuvant
chemotherapy. Later patient was placed back on dual antiplatelet therapy with a stop date of 02/13 then she will transition to aspirin.
Her hospital course was complicated by suture line surgical site infection and she responded well to Bactrim; she will complete a 10 day course.
She will follow up with Colorectal, Oncology and Neurology outpatient.
She was transferred to [facility] on 02/06.
Discharge Plan
-
Patient Disposition: Acute Rehab Facility
Discharge Diagnosis/Procedures: lower GI bleed, recent CVA 2 weeks prior, stage 3 colorectal cancer. Surgical site infection on Bactrim
Condition: Fair
Diet: Low Residue
Activity: No strenuous activity
Additional Activity: No lifting over 10lbs (gallon of milk)
Driving Restrictions: Not until seen by your Dr
Bathing Restrictions: OK to Shower
Wound Care: Daily and as needed wound care changes. Pack wound with 1/2 inch iodoform. Cover with gauze and paper tape. Okay to remove dressing for patient to shower. Do this daily until seen by Dr. Kulkarni. Okay to remove carol at rehab in 1 week
from 02/05/2025.
Instructions: Low-fiber diet
Referrals:
Singh Kulkarni MD [Active, ColoRectal] - in one to two weeks
Melissa Shaw CRNP [Specified Professional Personl, Neurology] - in one month
Yanira Calderón MD [Active, Oncology] - in one month
Lashawn Finnegan MD [Family Provider, Internal Medicine]
Additional Discharge Medication Instructions: finish Plavix on 02/13
Prescriptions:
New
sulfamethoxazole-trimethoprim 800-160 mg Tablet
1 tab PO BID Qty: 10 0RF
Rx Instructions:
treatment through 02/10
metoprolol succinate 25 mg Tablet Extended Release 24 Hr
25 mg PO DAILY Qty: 30 0RF
pantoprazole [Protonix] 40 mg tablet,delayed release (DR/EC)
40 mg PO DAILY Qty: 30 0RF
Continued
docusate sodium 100 MG capsule
100 mg PO BIDPRN PRN (Reason: constipation) 30 Days Qty: 60 0RF
Rx Instructions:
for 30 days
aspirin 81 MG tablet,chewable
81 mg PO DAILY 30 Days Qty: 30 0RF
Rx Instructions:
for 30 days
amlodipine [Norvasc] 5 mg Tablet
5 mg PO DAILY
metformin 1,000 mg Tablet
1,000 mg PO BID
atorvastatin 20 mg tablet
20 mg PO QPM
letrozole 2.5 MG tablet
2.5 mg PO DAILY
Rx Instructions:
for 30 days
clopidogrel 75 mg tablet
75 mg PO DAILY Qty: 0 0RF
Rx Instructions:
complete on 02/13
Discharge Orders:
Discharge Patient (As Directed); Ordered 02/06/25
Ordered By: Liz Mcguire
Discharge Date and Time
Discharge Date/Time: 02/06/25 14:45
Print Language: TAJIK
== END 2025-02-06 14:45 | DRG 813 ==
LOC: 3 WEST ACU 12:55
PROVIDERS: Internal Medicine; Nurse Practitioner Family; Physician Assistant; Student in an Organized Health Care Education/Training Program; Surgery; ADMITTING PHYSICIAN Internal Medicine; CONSULT PHYSICIAN Student in an Organized Health Care Education/Training Program; EMERGENCY PHYSICIAN Emergency Medicine; FAMILY PHYSICIAN Student in an Organized Health Care Education/Training Program; OTHER PHYSICIAN Internal Medicine Hematology & Oncology
PROC: 30233N1 Transfusion of Nonautologous Red Blood Cells into Peripheral Vein, Percutaneous Approach (ICD-10-PCS; 2025-01-29)
DX: D68.32 Hemorrhagic disorder due to extrinsic circulating anticoagulants (principal); K92.2 Gastrointestinal hemorrhage, unspecified; C18.4 Malignant neoplasm of transverse colon; I5A Non-ischemic myocardial injury (non-traumatic); T81.41XA Infection following a procedure, superficial incisional surgical site, initial encounter; C79.51 Secondary malignant neoplasm of bone; D62 Acute posthemorrhagic anemia; E87.1 Hypo-osmolality and hyponatremia; R78.81 Bacteremia; Z86.73 Personal history of transient ischemic attack (TIA), and cerebral infarction without residual deficits; C50.919 Malignant neoplasm of unspecified site of unspecified female breast; Y83.8 Other surgical procedures as the cause of abnormal reaction of the patient, or of later complication, without mention of misadventure at the time of the procedure; I10 Essential (primary) hypertension; E11.9 Type 2 diabetes mellitus without complications; E78.00 Pure hypercholesterolemia, unspecified; G89.29 Other chronic pain; T45.515A Adverse effect of anticoagulants, initial encounter; J45.909 Unspecified asthma, uncomplicated; Z66 Do not resuscitate; Z79.02 Long term (current) use of antithrombotics/antiplatelets; Z79.82 Long term (current) use of aspirin; Z79.84 Long term (current) use of oral hypoglycemic drugs; Z79.899 Other long term (current) drug therapy; Z79.811 Long term (current) use of aromatase inhibitors; Z80.6 Family history of leukemia; Z85.528 Personal history of other malignant neoplasm of kidney; Z90.12 Acquired absence of left breast and nipple; Z90.49 Acquired absence of other specified parts of digestive tract; Z90.5 Acquired absence of kidney
CPT/HCPCS: 74176; 80048; 80053; 82962; 83605; 84484; 85014; 85018; 85025; 85027; 85610; 85730; 86850; 86900; 86901; 86920; 87070; 87147; 87205; 93005; 96361; 96374; 96375; 97116; 97163; 97167; 97535; 99285; P9016